=== PATIENT | male | born 1975 | race Hispanic/Latino ===

== ENCOUNTER 2025-05-09 02:15 | Inpatient (IN) | payer SELFPAY ==
[2025-05-09] VITALS (96 sets, daily range): BP systolic 87–139; BP diastolic 58–96; PULSE 76–105; RESP 8–23; TEMP 36.2–37.2; O2SAT 97–100; BMI 29.5
--- NOTE | ~2025-05-09 | XR_ITS ---
Examination: XR chest 1V portable Clinical History: syncope Comparison: None Technique: Portable AP Findings: Heart size enlarged. Lungs clear. No acute bony abnormality. IMPRESSION: 1. No acute cardiopulmonary findings given portable technique. Reviewed, dictated and finalized at location R. ETING AGENT
--- NOTE | ~2025-05-09 | XR_ITS ---
EXAMINATION: XR chest 1V portable COMPARISON: No comparisons available. HISTORY: intubated, mechanically ventilated FINDINGS: Moderate pulmonary venous congestion. No pneumothorax. Mild cardiomegaly. Mediastinal and hilar contours are within normal limits. Bony thorax no acute abnormality. Miscellaneous: ET tube 2 cm above the zaid. Impression: CHF Reviewed, dictated and finalized at location P. DUSTER Impression: CHF
--- NOTE | ~2025-05-09 | XR_ITS ---
EXAM/PROCEDURE: XR chest ET placement HISTORY: ET PLACEMENT COMPARISON: Chest x-ray same date at 0641 hours TECHNIQUE: Portable chest x-ray FINDINGS: Endotracheal tube has been placed with tip about 3.5 cm above the zaid, mid trachea. Right lower lobe atelectasis and/or pneumonia. Heart shadow upper limits normal. No pneumothorax or subphrenic free air seen. IMPRESSION: Endotracheal tube tip about 3.5 cm above the zaid. Right basilar changes as noted above. Note: Preliminary radiology report provided by [facility] radiologist. Reviewed, dictated and finalized at location A. RADIATION THERAPIST IMPRESSION: Endotracheal tube tip about 3.5 cm above the zaid. Right basilar changes as n oted above. Note: Preliminary radiology report provided by [facility] radiologist.
--- NOTE | ~2025-05-09 | US_ITS ---
EXAMINATION: US abdomen limited DATE: 05/09/2025 16:34 INDICATION: Cirrhosis of the liver TECHNIQUE: Multiple grayscale and Doppler ultrasound images of the abdomen were obtained. COMPARISON: CT abdomen and pelvis 05/09/2025 FINDINGS: No evidence of gallstones. No edema gallbladder wall. Irregular, nodular surface of liver with heterogeneous echotexture consistent with cirrhosis of the liver. Moderately dilated portal vein 1.7 cm in diameter at the hilum of the liver is patent. Spleen and left abdomen were not examined. No free fluid. IMPRESSION: 1. No evidence of gallstones. Bile ducts are normal in size. 2. Hepatomegaly with nodular liver and heterogeneous texture with cirrhosis. 3. Mildly dilated portal vein consistent with portal venous hypertension. There is no ascites. Reviewed, dictated and finalized at location T. ILER FURNITURE
--- NOTE | ~2025-05-09 | CT_ITS ---
EXAMINATION: CTA chest abdomen pelvis DATE: 05/09/2025 03:27 INDICATION: Gastrointestinal hemorrhage. TECHNIQUE: Computed tomographic angiography (CTA) of the chest, abdomen, and pelvis was performed without and with 100 mL Omnipaque-350 intravenous contrast. Automated exposure control and iterative reconstruction technique were employed. The dose-length product was 3835.19 mGy-cm. Maximum intensity projection 3D- reconstructions of the aorta and other arteries were constructed by the technologist on a separate workstation. COMPARISON: None. FINDINGS: CHEST CTA: The lungs demonstrate mild atelectasis. A calcified right lung nodule is consistent with old granulomatous disease. No pleural effusion. The heart size is normal. No pericardial effusion. There is wall thickening of the esophagus. The aorta is normal. There is no pulmonary embolus. There are bridging endplate osteophytes at multiple levels in the spine, consistent with diffuse idiopathic skeletal hyperostosis (DISH). ABDOMEN AND PELVIS CTA: The liver demonstrates surface nodularity, consistent with cirrhosis. There is a periumbilical portacaval shunt. The gallbladder, pancreas, spleen, adrenal glands, and kidneys are normal. There are bilateral inguinal hernias containing fat. There are no dilated loops of bowel. The appendix is not visualized. There are no pathologically enlarged lymph nodes. There is no free intraperitoneal fluid. There is an umbilical hernia containing fat. There is no significant stenosis of celiac axis, superior mesenteric artery, the renal arteries, or inferior mesenteric artery. There are bilateral inguinal hernias containing fat. There is mild lumbar spondylosis. IMPRESSION: 1. No active hemorrhage. 2. Cirrhosis of the liver. 3. Wall thickening of the esophagus, consistent with edema versus esophagitis. 4. Umbilical hernia and bilateral inguinal hernias containing fat. Reviewed, dictated and finalized at location E. ER[employer] AND CH[employer] MAKER
--- NOTE | ~2025-05-09 | CT_ITS ---
CT HEAD NON-CONTRAST Clinical History: syncope Comparison: None Technique: Unenhanced axial images skull base to vertex Coronal, sagittal reformats CT images acquired with automatic exposure control for dose reduction DLP: 605 mGy-cm Findings: Sulci, ventricles: Unremarkable. No intracerebral hemorrhage. No evidence acute territorial infarct. No mass effect, midline shift. Empty sella, usually no consequence unless hormonal abnormality. Bony calvarium intact. Visualized paranasal sinuses: Clear. Mastoid air cells: Clear. IMPRESSION: 1. No acute intracranial findings. Reviewed, dictated and finalized at location R. 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
--- NOTE | ~2025-05-09 | XR_ITS ---
EXAMINATION: XR abdomen gastric tube insert DATE: 05/10/2025 12:42 INDICATION: Nasogastric tube placement TECHNIQUE: A supine view of the abdomen and lower chest was obtained for evaluation of feeding tube placement. COMPARISON: None. FINDINGS: Nasogastric tube tip in proximal side port in the body the stomach. There are few scattered tiny metallic densities in the abdomen and pelvis the majority of the epigastric region which based upon prior CT. Represent some ingested material decreased in quantity since the prior CT. No dilated loops of gas- filled bowel to suggest obstruction. Temperature probe likely within a Jose catheter projecting over the central lower pelvis. Opacities at the bilateral lower lung zones which could represent atelectasis or pneumonia. IMPRESSION: 1. Nonobstructive bowel gas pattern with nasogastric tube tip in proximal side port in the body the stomach. 2. Bibasilar lung disease which could represent atelectasis or pneumonia. Reviewed, dictated and finalized at location A. ET PRESS ASSISTANT
--- NOTE | 2025-05-09 02:13 | ECG_ITS ---
Test Date: 2025-05-09 02:35:02 Measurements Intervals [place] Rate: 90 P: 33 [place]: 179 QRS: -32 QRSD: 145 T: 105 QT: 417 QTc: 511 Interpretive Statements SINUS RHYTHM LEFT AXIS DEVIATION LEFT BUNDLE BRANCH BLOCK BASELINE ARTIFACT- AVR ABNORMAL ECG No previous ECG available for comparison Electronically Signed On 05-09-2025 07:51:19 [employer] by Ward Caro D.O.
--- NOTE | 2025-05-09 02:27 | ED.GIBLEED ---
HPI - GI Bleed General Chief complaint: GI Bleed Stated complaint: gi bleed Source: patient and EMS Mode of arrival: EMS Limitations: language barrier (moisture tester used.) History of Present Illness HPI Narrative: Patient is a 50-year-old male presents to the emergency department by EMS for abdominal pain and vomiting up blood. Patient son has a picture of the vomit and there is a large amount of coffee-ground and bright red appearing blood in a pool around the patient on the ground and some clots as well. This started just prior to arrival. Patient had 2 syncopal episodes. Patient was reportedly hypotensive for EMS. Patient admits to drinking 8 beers daily for the past 20 years. Denies being on blood thinners. Denies seeing a retail department reset. Pain is in the upper abdomen, constant. Denies any bloody stools. May have had a similar episode in the past. Related Data Allergies Allergy/AdvReac Type Severity Reaction Status Date / Time No Known Allergies Allergy Verified 05/09/25 02:53 Review of Systems Review of Systems: A 10 system review of systems was completed on the patient and is negative except for what is stated in the HPI. Nursing and ancillary documentation was reviewed. [facility] Past Medical History Medical History (Updated 05/09/25 @ 06:43 by Marcel Miller DO) Acute blood loss anemia Hemorrhagic shock Hematemesis Exam Narrative: CONST: Dried blood on the lips and in the oropharynx. HENMT: Head is normocephalic and atraumatic. Dry mucous membranes. No posterior oropharynx erythema. EYES: Mild scleral icterus. No conjunctival injection. Conjunctival pallor present. PERRL. NECK: No meningeal signs. RESP: Able to speak in full sentences. Normal respiratory effort. CTAB. CARDIO: Regular rate. Regular rhythm. 2+ DP and radial pulses bilaterally. GI: Mildly distended abdomen. Mildly tender to palpation in the epigastrium. No rebound or guarding or rigidity. : No CVA tenderness to palpation. SKIN: No rashes or lesions noted on exposed skin. Jaundiced. NEURO: Oriented x3. Moves all extremities. No focal neurological deficits. EXTREM/MSK/BACK: Trace bilateral lower extremity pitting edema. Course Vital Signs Vital signs: Vital Signs Pulse Rate 92 05/09/25 02:14 Respiratory Rate 16 05/09/25 02:14 Blood Pressure 101/67 05/09/25 02:14 Pulse Oximetry 97 05/09/25 02:14 Oxygen Delivery Room Air 05/09/25 02:14 Temperature 98.8 F 05/09/25 04:20 Pulse Rate 82 05/09/25 06:15 Respiratory Rate 18 05/09/25 06:15 Blood Pressure 102/63 05/09/25 05:50 Pulse Oximetry 99 05/09/25 05:50 Oxygen Delivery Mechanical Ventilation 05/09/25 04:00 Fraction of Inspired Oxygen 60 05/09/25 05:38 Procedures Intubation Intubation #1: Intubation Date: 05/09/25 Time out performed: No sedative: Etomidate paralytic: Rocuronium Laryngoscope: fiber optic video scope Tube Size (cm): 7.5 Method of Intubation: orotracheal Number of Attempts: 1 Tube Secured Depth (cm): 25 Tube Secured Location: lips Tube Placement Confirmation: visualized tube passing through cords, equal breath sounds bilaterally, no breath sounds over epigastrium and confirmation by capnometry Patient Tolerated Procedure: well Intubation Complications: other (noticed a air leak and cuff would not stay inflated so a tube exchange was performed with a bougie and repeat CXR done showing proper positioning. ) MDM MDM Narrative Medical decision making narrative: Patient presents with the above complaint. Initial vitals are remarkable for a blood pressure of 101/67. Physical examination as noted above. Plan discussed: 2 large-bore IVs, continues cardiac monitoring, continuous pulse oximetry, NPO, type and screen, 4 units of packed red blood cells crossmatch, EKG, Gastroenterology consultation, CT head and chest abdomen pelvis, laboratory analysis, 1 L bolus IV fluids, Rocephin, octreotide, Protonix, Zofran. I spoke with Gastroenterology on-call who will see the patient on consultation. Patient returned from CT vomiting up a significant amount of frankly bloody emesis with clots and coffee-ground as well, multiple episodes, appearing more drowsy, spoke with Gastroenterology who is coming, informed of concern for airway protection and agrees with plan for intubation. Patient intubated for airway protection, propofol for post intubation sedation. Unable to place nasogastric or orogastric tube, GI aware. I spoke with Dr. Magana from the ICU who agrees with plan of care. Will need to go to the ICU. Crossmatch blood is still not ready, patient given 1 unit of emergent release blood for the significant amount of blood loss. ICU knows to give another 1-2 units of packed red blood cells. GI notes no need to give FFP or platelets at this time. CT of the chest preliminary findings radiology interpretation is no acute finding seen within the chest, no evidence of aortic dissection or pulmonary artery embolism. CT of the abdomen pelvis preliminary findings radiology impression is isodense material is seen in within the gastric lumen with areas of hyperdensity seen on precontrast imaging which does not increase with sequential phase of imaging. This may represent blood products without definitive active bleeding. Mild distal esophageal wall thickening. Cirrhotic morphology of the liver. Mild nonspecific distal gastric wall thickening. Wall thickening and mild dilatation of loops of small bowel seen within the abdomen and pelvis suggesting underlying infectious or inflammatory enteritis. CT of the head preliminary findings per Radiology impression is no acute intracranial findings. No intracranial hemorrhage. Chest x-ray Radiology impression is endotracheal tube is in place terminating 3.5 cm from the zaid. Right lower lobe atelectasis and/or pneumonia. Differential Diagnosis Differential Diagnosis: Gastrointestinal bleeding, variceal bleeding, peptic ulcer disease, perforated viscus, dysrhythmia, bleeding dyscrasia, gastritis, hepatobiliary pathology, pancreatitis, dehydration, metabolic derangement, electrolyte derangement, ACS, intracranial hemorrhage, other acute surgical abdominal process. Lab Data MDM Lab Attestation statement: I personally reviewed the patient's lab results. Lab results narrative: CBC reveals a hemoglobin of 10.3, platelet count of 96. Coags reveal a PT of 20.5, INR 1.8, APTT of 37.3. Comprehensive metabolic panel reveals a total bilirubin of 2.2, AST is 60, alkaline phosphatase 157. Troponin is 0.077. Lipase is 143. TSH is 1.45. CRP is less than 0.5. Magnesium is 2.2. Ethyl alcohol is 159. 05/09/25 05:35 05/09/25 02:46 Labs: Lab Results 05/09/25 05/09/25 05/09/25 Range/Units 02:46 02:46 03:41 WBC 9.4 (4.5-10.0) K/mm3 RBC 3.54 L (4.6-6.20) M/mm3 Hgb 10.3 L (14.0-18.0) g/dL Hct 31.5 L (42.0-52.0) % MCV 89.0 (80-100) fl MCH 29.1 (26-34) pg MCHC 32.7 (32-36) g/dl RDW 16.8 H (11.5-14.5) % Plt Count 96 L (150-375) k/mm3 MPV 9.6 (7.4-10.4) fl Immature Gran % (Auto) Not Reportable Neut % (Auto) Not Reportable Lymph % (Auto) Not Reportable [place] % (Auto) Not Reportable Eos % (Auto) Not Reportable Baso % (Auto) Not Reportable Lymph # (Auto) Not Reportable [place] # (Auto) Not Reportable Eos # (Auto) Not Reportable Baso # (Auto) Not Reportable Abs Immat Gran (auto) Not Reportable Absolute Neuts (auto) Not Reportable Absolute Nucleated RBC Not Reportable Total Counted 100 Neutrophils % (Manual) 64 (46-73) % Band Neutrophils % 5 (0-6) % Lymphocytes % (Manual) 17.0 L (18-44) % Monocytes % (Manual) 8 (3-9) % Eosinophils % (Manual) 4 (0-4) % Myelocytes % 2 % Nucleated RBC % Not Reportable Abs Neuts (Manual) 6.48 (1.3-6.7) K/mm3 Abs Lymphs (Manual) 1.59 (1.1-4.5) K/mm3 Abs Monocytes (Manual) 0.75 (0.1-0.90) K/mm3 Absolute Eos (Manual) 0.37 (0.02-0.50) K/mm3 Smudge Cells Present Platelet Estimate Decreased (Adequate) % Immature Plt Fraction 2.8 (0.9-11.2) % Anisocytosis 1+ Ovalocytes Occasional Schistocytes None seen PT 20.5 H (11.1-14.7) Seconds INR 1.8 APTT 37.3 H (22.3-36.8) Seconds Sodium 137 (137-145) mmol/L Potassium 4.1 (3.4-5.0) mmol/L Chloride 104 (98-107) mmol/L Carbon Dioxide 28 (22-30) mmol/L Anion Gap 5 (4-12) mmol/L BUN 17 (9-20) mg/dL Creatinine 1.15 (0.7-1.3) mg/dL Estim Creat Clear Calc Not Reportable Estimated GFR > 60 (59 - ) Glucose 107 (65-110) mg/dL Calcium 7.7 L (8.4-10.2) mg/dL Magnesium 2.2 (1.6-2.3) mg/dL Total Bilirubin 2.2 H (0.2-1.3) mg/dL AST 60 H (17-59) U/L ALT 15 (6-50) U/L Alkaline Phosphatase 157 H (38-126) U/L Ammonia 117 H (9-30) umol/L Troponin I 0.077 H* (0.000-0.034) ng/mL C-Reactive Protein < 0.5 (<1.0) mg/dL Total Protein 6.5 (6.3-8.2) g/dL Albumin 2.9 L (3.5-5.1) g/dL Lipase 143 (23-300) U/L TSH (Reflex) 1.450 (0.465-4.68) uIU/mL Ethyl Alcohol 159 (<10) mg/dL Blood Type O Positive Antibody Screen Negative Crossmatch See Detail See Detail ABG Data ABG results: 05/09/25 02:14 VBG pH 7.386 VBG pCO2 46.5 VBG pO2 29.8 L VBG HCO3 27.3 O2 Delivery Device Room air O2 Liters/Min Not Reportable FiO2 21 Imaging Data Radiologist's impression: ITS Impressions Chest X-Ray 05/09/25 06:19 IMPRESSION: 1. No acute cardiopulmonary findings given portable technique. Head CT 05/09/25 06:25 IMPRESSION: 1. No acute intracranial findings. ECG Data EKG #1: Attestation: I personally reviewed and interpreted this ECG as follows: ECG completion date: 05/09/25 ECG completion time: 02:35 Interpretation: Rate of 90, rhythm is sinus rhythm, axis is left axis deviation, left bundle-branch block, no Sgarbossa criteria. Critical Care Time Critical Care Time Critical Care Time: Yes Indication: GI bleed Time Type: Intermittent Initial evaluation, discuss w/ involved parties, attempting to gather old records: 20 minutes Documenting medical record: 15 minutes Review of results (EKG's, labs, imaging): 15 minutes Serial repeat bedside evaluation: 30 minutes Discussing case with multiple memebers of the care team and consultants: 10 minutes Total Critical Care Time: 90 Discharge Plan Discharge Clinical Impression: Anemia, Thrombocytopenia, Non-ST elevation MD (NSTEMI) GI (gastrointestinal bleed) Qualifiers: GI bleed type/associated pathology: unspecified gastrointestinal hemorrhage type Qualified Code(s): K92.2 - Gastrointestinal hemorrhage, unspecified Patient Disposition: Still a Patient Condition: Critical Time of Disposition: 04:54
[2025-05-09] MEDS: SODIUM CHLORIDE 0.9% IV 1,000 ML 999 ML IV CONT (02:55)
[2025-05-09 02:57] LABS: Fractional Inspired Oxygen 21 %; HCO3 VBG 27.3 mEq/l (24.0-30.0); PCO2 VBG 46.5 mmHg (42.0-48.0); PO2 VBG 29.8 mmHg (35.0-45.0); pH VBG 7.386 (7.300-7.400)
[2025-05-09] MEDS: PANTOPRAZOLE SODIUM IV 40 MG VIAL 80 MG IV PUSH (02:57)
[2025-05-09] MEDS: ONDANSETRON INJ 4 MG/2 ML VIAL IV PUSH (02:57)
[2025-05-09] MEDS: METOCLOPRAMIDE HCL INJ 10 MG/2 ML VIAL (03:00)
[2025-05-09 03:05] LABS: Hematocrit 31.5 % (42.0-52.0); Hemoglobin 10.3 g/dL (14.0-18.0); Immature Platelet Fraction Pct 2.8 % (0.9-11.2); Mean Corpuscular HGB Conc 32.7 g/dl (32-36); Mean Corpuscular Hemoglobin 29.1 pg (26-34); Mean Corpuscular Volume 89.0 fl (80-100); Platelet Count Result 96 k/mm3 (150-375); Red Blood Count 3.54 M/mm3 (4.6-6.20); White Blood Count 9.4 K/mm3 (4.5-10.0)
[2025-05-09 03:14] LABS: Alanine Aminotransferase 15 U/L (6-50); Albumin Level 2.9 g/dL (3.5-5.1); Alkaline Phosphatase 157 U/L (38-126); Anion Gap 5 mmol/L (4-12); Aspartate Amino Transferase 60 U/L (17-59); Bilirubin,Total 2.2 mg/dL (0.2-1.3); Blood Urea Nitrogen 17 mg/dL (9-20); Calcium 7.7 mg/dL (8.4-10.2); Carbon Dioxide 28 mmol/L (22-30); Chloride 104 mmol/L (98-107); Estimated Glomerular Filt Rate > 60; Glucose 107 mg/dL (65-110); Lipase 143 U/L (23-300); Magnesium 2.2 mg/dL (1.6-2.3); Potassium 4.1 mmol/L (3.4-5.0); Sodium 137 mmol/L (137-145); Total Protein 6.5 g/dL (6.3-8.2)
[2025-05-09 03:17] LABS: INR 1.8; Prothrombin Time 20.5 Seconds (11.1-14.7)
[2025-05-09 03:18] LABS: Partial Thromboplastin Time 37.3 Seconds (22.3-36.8)
[2025-05-09 03:36] LABS: Band Neutrophils Percent 5 % (0-6); Eosinophils Absolute Manual 0.37 K/mm3 (0.02-0.50); Eosinophils Percent Manual 4 % (0-4); Lymphocytes Absolute Manual 1.59 K/mm3 (1.1-4.5); Lymphocytes Percent Manual 17.0 % (18-44); Monocytes Absolute Manual 0.75 K/mm3 (0.1-0.90); Monocytes Percent Manual 8 % (3-9); Myelocytes Percent 2 %; Neutrophils Absolute Manual 6.48 K/mm3 (1.3-6.7); Neutrophils Percent Manual 64 % (46-73); Total Cells Counted 100
[2025-05-09 03:37] LABS: Anisocytosis 1+; Ovalocytes Occasional; Schistocytes None Seen
[2025-05-09 03:38] LABS: Smudge Cells PRESENT
[2025-05-09 03:44] LABS: Thyroid Stimulating Hormone Reflex 1.450 uIU/mL (0.465-4.68)
[2025-05-09 03:45] LABS: CRP < 0.5 mg/dL (<1.0); Troponin I 0.077 ng/mL (0.000-0.034)
[2025-05-09] MEDS: OCTREOTIDE ACETATE 50 MCG/ML VIAL IV PUSH (03:53)
[2025-05-09 03:59] LABS: Ammonia 117 umol/L (9-30)
[2025-05-09] MEDS: fentaNYL CITRATE INJ (*CRX) 100 MCG/2 ML VIAL IV PUSH ×3 (04:22→06:53)
--- NOTE | 2025-05-09 04:33 | PC.NURSE ---
This RN called to pt bedside by Swetha FARRELL. pt observed having black emesis with clots. EDP called to bedside. EDP stated to get ready for intubation. Respiratory called to bedside. 10 of Reglan given @ 0405 20 of Etomidate given by Swetha RN @ 0410 100 of Rocuromium given by Swetha RN @ 0411 EDP used 7.5 ET tube and is 27@ lip. Color change noted and breath sounds noted per EDP. NG placed and is 68 @ the tip. XR at bedside to confirm placement. NG displaced and removed. EDP had to change out ET tube due to deflation of the balloon. XR at bedside to reconfirm placement. EDP VORB Propofol for sedation
[2025-05-09] MEDS: PROPOFOL IV EMULSION 100 ML 2.65 MG IV CONT (04:41)
--- NOTE | 2025-05-09 04:52 | PC.NURSE ---
VORB to do 1-2 units of blood when crossmatch is complete
[2025-05-09] MEDS: PANTOPRAZOLE SODIUM IV 80 MG in SODIUM CHLORIDE 0.9% IV 500 ML 50 MG IV CONT (05:00)
[2025-05-09] MEDS: PHYTONADIONE ADULT INJ 10 MG in DEXTROSE 5% IN WATER 50 ML 100 MG IVPB (05:02)
[2025-05-09] MEDS: fentaNYL CITRATE INJ (*CRX) 100 MCG/2 ML VIAL (05:38)
[2025-05-09] MEDS: OCTREOTIDE ACETATE 500 MCG in SODIUM CHLORIDE 0.9% IV 99 ML 10 MCG IV CONT (05:41)
[2025-05-09 05:54] LABS: Hematocrit 31.6 % (42.0-52.0); Hemoglobin 10.3 g/dL (14.0-18.0)
--- NOTE | 2025-05-09 06:05 | P.HP_ITS ---
H&P: HPI History of Present Illness Date/Time: 05/09/25 06:05 Chief Complaint: Bloody vomiting Narrative: Patient is intubated, sedated. History is taken via chart review, communication with the ER physician. Patient is a 50-year-old male with heavy alcohol use. 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 Patient's son showed a picture of a large coffee- ground and bright red appearing blood in a pool around the patient on the ground with some clots which happened just prior to arrival. Patient had 2 syncope episodes. The patient was reportedly hypotensive. The patient admitted to drinking 8 beers daily for the past 20 years. Denies being on blood thinners. The pain was in the upper abdomen and constant. He did not have any bloody stools. Patient's initial hemoglobin was 10.3, INR 1.8. Two large-bore IVs placed, patient received 1 L IV fluids. Patient was reportedly stable, saturating well on room air, acceptable blood pressure and heart rate. GI was consulted, patient was started on Rocephin octreotide Protonix and Zofran. Afterwards, the patient had a sudden extremely large episode of hematemesis. He was emergently intubated by the ER physician with succinylcholine. He was then placed on propofol GTT. 1 unit blood emergency release being infused. Another unit of crossmatch to follow. Administer 10 mg vitamin K IV x1. GI reconsulted, advised against platelets and FFP. GI will arrived to perform endoscopy. Phys Therapist notified. ER physician unable to place OG/NG tube on multiple attempts. Other notable labs include total bilirubin 2.2, calcium 7.7, AST 60, ALT 15, alkaline phosphatase 157, ammonia 117, patient was reportedly A&O x3 prior to intubation. Troponin 0.077, albumin 2.9. Lactic acid 2.6. Platelets 96,000. Serum alcohol 159 on admission. No report of chest pain, EKG shows sinus rhythm, no acute ischemia Official radiology interpretations of the following are pending: CT head, no acute intracranial findings. CT chest, no acute findings. CT abdomen pelvis isodense material seen in the gastric lumen with areas of hyperdensity seen on precontrast imaging which does not increase with sequential phase of imaging. Mild distal esophageal wall thickening. Cirrhotic morphology of the liver. Mild nonspecific distal gastric wall thickening. Wall thickening and mild dilatation of loops of small bowel seen within the abdomen pelvis suggesting underlying infectious or inflammatory enteritis. Review of Systems Review of Systems: All systems reviewed & are unremarkable except as noted in HPI and below (Subjective) [facility] Past Medical History Medical History (Updated 05/09/25 @ 06:27 by Binh Franz MD) Acute blood loss anemia Hemorrhagic shock Hematemesis Meds Home Medications and Allergies Allergies Allergy/AdvReac Type Severity Reaction Status Date / Time No Known Allergies Allergy Verified 05/09/25 02:53 Vital Signs Vital Signs - 24 hr 05/09/25 02:14 05/09/25 04:20 05/09/25 04:41 Temperature 98.8 F Pulse Rate 92 98 87 Respiratory Rate 16 20 18 Blood Pressure 101/67 124/85 Pulse Oximetry 97 100 Oxygen Delivery Room Air 05/09/25 05:50 Temperature Pulse Rate 85 Respiratory Rate 20 Blood Pressure 102/63 Pulse Oximetry 99 Oxygen Delivery Exam Const: Other: Intubated Eyes: Pupils: Equal, round and reactive pupils present Resp: Other: Mechanical breath sounds, no adventitious sounds Cardio: Rate: regular rate Rhythm: regular rhythm GI: Inspection: non-distended GI Palp: Yes Soft to palpation Other: Hypoactive bowel sounds : General: Yes bladder normal to palpation Neuro: Other: Sedated Extrem: General: no edema Results Labs Labs: Short CBC 05/09/25 Range/Units 02:46 WBC 9.4 (4.5-10.0) K/mm3 Hgb 10.3 L (14.0-18.0) g/dL Hct 31.5 L (42.0-52.0) % Plt Count 96 L (150-375) k/mm3 BMP 05/09/25 02:46 Sodium 137 Potassium 4.1 Chloride 104 Carbon Dioxide 28 BUN 17 Creatinine 1.15 Glucose 107 Calcium 7.7 L Cardiac Enzymes 05/09/25 Range/Units 02:46 Troponin I 0.077 H* (0.000-0.034) ng/mL Liver Function 05/09/25 Range/Units 02:46 Total Bilirubin 2.2 H (0.2-1.3) mg/dL AST 60 H (17-59) U/L ALT 15 (6-50) U/L Alkaline Phosphatase 157 H (38-126) U/L Albumin 2.9 L (3.5-5.1) g/dL Assessment and Plan Assessment and plan (1) Thrombocytopenia: Code(s): D69.6 - Thrombocytopenia, unspecified Status: Acute (2) GI (gastrointestinal bleed): Qualifiers: GI bleed type/associated pathology: unspecified gastrointestinal hemorrhage type Qualified Code(s): K92.2 - Gastrointestinal hemorrhage, unspecified Code(s): K92.2 - Gastrointestinal hemorrhage, unspecified Status: Acute (3) Anemia: Code(s): D64.9 - Anemia, unspecified Status: Acute (4) Alcohol use disorder: Code(s): F10.90 - Alcohol use, unspecified, uncomplicated Status: Acute (5) Cirrhosis: Code(s): K74.60 - Unspecified cirrhosis of liver Status: Acute Plan Intubated and sedated. Patient will eventually be admitted to ICU. Currently on SCMV rate 18, 450 tidal volume, peep 5, FiO2 100%, wean oxygen as tolerated. At this moment pending emergent endoscopy with Gastroenterology. Continue ceftriaxone, sodium chloride at 125 cc/hour, octreotide GTT, Protonix GTT. Repeat hemoglobin 10.3, monitor serial hemoglobin after endoscopy. Monitor platelet count. Patient given vitamin K, monitor INR. Of course, further workup and management of alcohol use disorder and cirrhosis to follow. Check liver ultrasound. Repeat troponin. Trend lactic acid. Treat hyperammonemia at the discretion of GI and if patient has evidence of hepatic encephalopathy. Monitor for alcohol withdrawal. Multi vitamin PO when extubated. Thiamine and folic acid IV daily. Full code. Bed rest. Admit to ICU. Critical condition. Disposition pending further management. SCDs. Keep MAP > 65-70 Time Spent with Patient Time with patient: 75 minutes or greater Hospitalist MIPS Advance Care Plan I have confirmed that the patient's Advanced Care Plan is present, code status is documented, or surrogate decision maker is listed in patient medical record.: Yes Medication Reconciliation I have utilized all available resources to obtain, update and review the patients current medications (includes all prescriptions, OTC, herbals, canna bis, and nutritional supplements).: No The patient is not eligible for med reconciliation; the patient is in a emergent medical situation where delaying treatment would jeopardize the patients health.: Yes
--- NOTE | 2025-05-09 06:23 | PC.NURSE ---
gave 100 genna and 20mg of etomadate during intubtion
--- NOTE | 2025-05-09 06:23 | WPDGICN ---
Assessment and Plan Assessment and plan (1) GI (gastrointestinal bleed): Qualifiers: GI bleed type/associated pathology: unspecified gastrointestinal hemorrhage type Qualified Code(s): K92.2 - Gastrointestinal hemorrhage, unspecified Code(s): K92.2 - Gastrointestinal hemorrhage, unspecified Status: Acute Assessment and Plan: probably he has cirrhosis will proceed with urgent EGD at bedside, he is still in ER waiting for ICU bed continue with medical support, iv octreotide, ppi, abx transfuse if hgb<7 he is critically ill ? varices, ulcer, jose roberto-wilson (2) Hematemesis: Code(s): K92.0 - Hematemesis Status: Acute Assessment and Plan: urgent EGD (3) Hemorrhagic shock: Code(s): R57.8 - Other shock Status: Acute Assessment and Plan: s/p fluids (4) Acute blood loss anemia: Code(s): D62 - Acute posthemorrhagic anemia Status: Acute (5) Thrombocytopenia: Code(s): D69.6 - Thrombocytopenia, unspecified Status: Acute Assessment and Plan: probably from cirrhosis will monitor (6) Cirrhosis: Code(s): K74.60 - Unspecified cirrhosis of liver Status: Acute Assessment and Plan: will get liver ultrasound probably from alcohol abuse meld 3.0 score17 (7) Alcohol use disorder: Code(s): F10.90 - Alcohol use, unspecified, uncomplicated Status: Acute GI Consult Note Consult date/time: 05/09/25 06:23 Reason for consult: hematemesis, alcohol abuse HPI: Nestor Vieira is a 50 year old male who came early this morning to the emergency department by EMS for abdominal pain and vomiting up blood. He is currently intubated for airway protection and history is obtained from record. His son has a picture of the vomit that showed to ER with large amount of coffee-ground and bright red appearing blood. Patient had 2 syncopal episodes and he had more hematemesis in the ER. Given active bleeding then decision was to intubate him. Started on iv protonix, octreotide. Noted elevated liver enzymes (he is an alcoholic), hgb 10, also reportedly hypotensive for EMS. Patient admits to drinking 8 beers daily for the past 20 years. Denies being on blood thinners. Review of Systems Review of Systems: ROS unobtainable: Yes unobtainable due to endotracheal tube [facility] Past Medical History Medical History (Updated 05/09/25 @ 06:43 by Marcel Miller DO) Acute blood loss anemia Hemorrhagic shock Hematemesis Meds Home Medications and Allergies Allergies Allergy/AdvReac Type Severity Reaction Status Date / Time No Known Allergies Allergy Verified 05/09/25 02:53 Vital Signs Vital Signs - 24 hr 05/09/25 02:14 05/09/25 04:00 05/09/25 04:00 Temperature Pulse Rate 92 Respiratory Rate 16 Blood Pressure 101/67 Pulse Oximetry 97 100 100 Oxygen Delivery Room Air Mechanical Ventilation Mechanical Ventilation Fraction of Inspired Oxygen 50 50 05/09/25 04:20 05/09/25 04:41 05/09/25 05:38 Temperature 98.8 F Pulse Rate 98 87 Respiratory Rate 20 18 Blood Pressure 124/85 Pulse Oximetry 100 Oxygen Delivery Fraction of Inspired Oxygen 60 05/09/25 05:50 05/09/25 06:15 Temperature Pulse Rate 85 82 Respiratory Rate 20 18 Blood Pressure 102/63 Pulse Oximetry 99 Oxygen Delivery Fraction of Inspired Oxygen Exam Const: Other: critically ill HENMT: Other: intubated Eyes: General: appearance normal, both eyes and all related structures Neck: Neck: supple Resp: Effort & Inspection: normal respiratory effort Other: ETT in place Cardio: Rate: regular rate GI: GI Palp: Yes Soft to palpation Auscultation: normal bowel sounds Skin: Wounds: no wounds Neuro: Other: intubated and sedated Extrem: General: normal to inspection Psych: Other: unable to assess Results Labs 05/09/25 05:35 05/09/25 02:46 Labs: Short CBC 05/09/25 05/09/25 Range/Units 02:46 05:35 WBC 9.4 (4.5-10.0) K/mm3 Hgb 10.3 L 10.3 L (14.0-18.0) g/dL Hct 31.5 L 31.6 L (42.0-52.0) % Plt Count 96 L (150-375) k/mm3 BMP 05/09/25 02:46 Sodium 137 Potassium 4.1 Chloride 104 Carbon Dioxide 28 BUN 17 Creatinine 1.15 Glucose 107 Calcium 7.7 L Cardiac Enzymes 05/09/25 Range/Units 02:46 Troponin I 0.077 H* (0.000-0.034) ng/mL Liver Function 05/09/25 Range/Units 02:46 Total Bilirubin 2.2 H (0.2-1.3) mg/dL AST 60 H (17-59) U/L ALT 15 (6-50) U/L Alkaline Phosphatase 157 H (38-126) U/L Albumin 2.9 L (3.5-5.1) g/dL
[2025-05-09] MEDS: MIDAZOLAM HCL (*CRX) 2 MG/2 ML VIAL IV PUSH (06:46)
[2025-05-09 07:25] LABS: MRSA (PCR) NOT DETECTED (NOT DETECTE)
[2025-05-09] MEDS: MIDAZOLAM 100MG/NS 100ML(*CRX) 100 MG/100 ML BAG IV CONT (07:48)
[2025-05-09 07:59] LABS: Troponin I 0.155 ng/mL (0.000-0.034)
[2025-05-09 08:07] LABS: Add Urine Microscopic? NO; Appearance Urine Clear (Clear); Glucose Urine UA Negative (Negative); Leukocyte Esterase Ur Negative LEU/UL (Negative); Nitrate Urine Negative (Negative); Specific Grav Ur > 1.045 (1.001-1.035)
--- NOTE | 2025-05-09 08:17 | PC.NURSE ---
This RN assumed care from JAMI Posada at 0700. Once in my care, pt was cleaned up, placed on clean sheets, placed in a clean gown, placed in a clean depend and temperature rubio catheter inserted and UA/UDS collected. JAMI Posada states EDP Dr. Miller gave her verbal order to not place NG tube at this time due to varices being banded during EGD.
[2025-05-09] MEDS: cefTRIAXone 1 GM in SODIUM CHLORIDE 0.9% IV 50 ML 100 ML IVPB (08:25)
--- NOTE | 2025-05-09 08:30 | WPCEDHO ---
ED Hand Off Checklist All vitals saved:y IV Site documented:y All med administrations documented:y Triage Note Triage Note brought in by ems vomiting blood 05/09/25 02:14 through my nose. Allergies No Known Allergies Allergy (Verified 05/09/25 02:53) Current Diagnoses Acute posthemorrhagic anemia (05/09/25) Anemia, unspecified (05/09/25) Thrombocytopenia, unspecified (05/09/25) Alcohol use, unspecified, uncomplicated (05/09/25) Unspecified cirrhosis of liver (05/09/25) Hematemesis (05/09/25) Gastrointestinal hemorrhage, unspecified (05/09/25) Other shock (05/09/25) Active Medications including assessments/comments Octreotide Acetate 500 mcg/ (Sodium Chloride) 100 mls @ 10 mls/hr IV CONT .Q10H PENDING SALE TO [facility] Last Admin: 05/09/25 05:41 Dose: 50 mcg/hr, 10 mls/hr Documented By: KEE Infusion/Titration Document 05/09/25 05:41 SRW (Rec: 05/09/25 05:41 SRW [id number]) Intake IV Site Peripheral Access Left Hand Container Volume 100 Waste Amount 0 Dosing Dose Rate 50 Infusion Rate 10 Increase/Decrease Started Elapsed Time Elapsed Time ( 0m minutes) Midazolam HCl (Versed 100 Mg/Ns 100 Ml) 100 mg in 100 mls @ 7 mls/hr IV CONT .[id number] PENDING SALE TO [facility]; Protocol Last Titration: 05/09/25 08:11 Dose: 7 mg/hr, 7 mls/hr Documented By: DICK Infusion/Titration Document 05/09/25 08:11 DICK (Rec: 05/09/25 08:12 ELB [id number]) Intake Intake 0.3 Cumulative Intake ( 1 bag) Cumulative Intake ( 1 Rx) Container Volume 99 Waste Amount 0 Dosing Dose Rate 7 Infusion Rate 7 Cumulative Dose 1 Increase/Decrease Increased Elapsed Time Elapsed Time ( 23m minutes) Versed Infusion Assessment Document 05/09/25 08:11 DICK (Rec: 05/09/25 08:12 BENJAB [id number]) Infusion Action Versed Infusion Titrated/Rate Changed Action Pulse Pulse Rate (60-100) 83 Respirations Respiratory Rate (12 17 -20) [place]ia Agitation/Sedation Scale (RASS) [place]ia Agitation/ Very Agitated/ +3 Sedation Scale (RASS ) Titration: 05/09/25 08:08 Dose: 5 mg/hr, 5 mls/hr Documented By: DICK Infusion/Titration Document 05/09/25 08:08 DICK (Rec: 05/09/25 08:10 BENJAB [id number]) Intake Intake 0.5 Cumulative Intake ( 0.7 bag) Cumulative Intake ( 0.7 Rx) Container Volume 99.3 Waste Amount 0 Dosing Dose Rate 5 Infusion Rate 5 Cumulative Dose 0.7 Increase/Decrease Increased Elapsed Time Elapsed Time ( 20m minutes) Versed Infusion Assessment Document 05/09/25 08:08 DICK (Rec: 05/09/25 08:10 DICK [id number]) Infusion Action Versed Infusion Titrated/Rate Changed Action Pulse Pulse Rate (60-100) 83 Respirations Respiratory Rate (12 17 -20) [place]ia Agitation/Sedation Scale (RASS) [place]ia Agitation/ Very Agitated/ +3 Sedation Scale (RASS ) Titration: 05/09/25 07:58 Dose: 3 mg/hr, 3 mls/hr Documented By: DICK Infusion/Titration Document 05/09/25 07:58 DICK (Rec: 05/09/25 08:07 DICK [id number]) Intake IV Site Peripheral Access Left Hand Intake 0.2 Cumulative Intake ( 0.2 bag) Cumulative Intake ( 0.2 Rx) Container Volume 99.8 Waste Amount 0 Dosing Dose Rate 3 Infusion Rate 3 Cumulative Dose 0.2 Increase/Decrease Increased Elapsed Time Elapsed Time ( 10m minutes) Versed Infusion Assessment Document 05/09/25 07:58 DICK (Rec: 05/09/25 08:07 DICK [id number]) Infusion Action Versed Infusion Titrated/Rate Changed Action Pulse Pulse Rate (60-100) 82 Respirations Respiratory Rate (12 19 -20) [place]ia Agitation/Sedation Scale (RASS) [place]ia Agitation/ Agitated/ +2 Sedation Scale (RASS ) Admin: 05/09/25 07:48 Dose: 1 mg/hr, 1 mls/hr Documented By: DICK Co-signed By: KAITLYNN Infusion/Titration Document 05/09/25 07:48 DICK (Rec: 05/09/25 07:49 DICK [id number]) Co-signed By Daniella Coppola RN Intake IV Site Peripheral Access Left Hand Container Volume 100 Waste Amount 0 Dosing Dose Rate 1 Infusion Rate 1 Increase/Decrease Started Elapsed Time Elapsed Time ( 0m minutes) Versed Infusion Assessment Document 05/09/25 07:48 DICK (Rec: 05/09/25 07:49 DICK [id number]) Co-signed By Daniella Coppola RN Infusion Action Versed Infusion Initiated Action Pulse Pulse Rate (60-100) 82 Respirations Respiratory Rate (12 18 -20) [place]ia Agitation/Sedation Scale (RASS) [place]ia Agitation/ Restless/ +1 Sedation Scale (RASS ) Administered/Completed Medications Discontinued Medications Fentanyl Citrate (Fentanyl Citrate Inj (*Crx) 100 Mcg/2 Ml Vial) 100 mcg IV PUSH ONCE STA Stop: 05/09/25 04:21 Last Admin: 05/09/25 04:22 Dose: 100 mcg Documented By: KEE Fentanyl Citrate (Fentanyl Citrate Inj (*Crx) 100 Mcg/2 Ml Vial) Confirm Administered Dose 100 mcg .ROUTE .STK-MED ONE Stop: 05/09/25 04:22 Last Admin: 05/09/25 05:38 Dose: 100 mcg Documented By: KEE Fentanyl Citrate (Fentanyl Citrate Inj (*Crx) 100 Mcg/2 Ml Vial) 100 mcg IV PUSH ONCE STA Stop: 05/09/25 05:28 Last Admin: 05/09/25 06:12 Dose: 100 mcg Documented By: KEE Fentanyl Citrate (Fentanyl Citrate Inj (*Crx) 100 Mcg/2 Ml Vial) 100 mcg IV PUSH ONCE ONE Stop: 05/09/25 06:51 Last Admin: 05/09/25 06:53 Dose: 100 mcg Documented By: KEE Sodium Chloride (Normal Saline Iv) 1,000 mls @ 999 mls/hr IV CONT .Q1H1M STA Stop: 05/09/25 03:12 Last Infusion: 05/09/25 07:00 Dose: Infused Documented By: Admin: 05/09/25 02:55 Dose: 999 mls/hr Documented By: KEE Pantoprazole Sodium 80 mg/ (Sodium Chloride) 500 mls @ 50 mls/hr IV CONT .Q10H STA Stop: 05/09/25 12:11 Last Infusion: 05/09/25 08:21 Dose: Infused Documented By: Admin: 05/09/25 05:00 Dose: 50 mls/hr Documented By: KEE Ceftriaxone Sodium 1 gm/ (Sodium Chloride) 50 mls @ 100 mls/hr IVPB ONCE STA Stop: 05/09/25 02:41 Last Admin: 05/09/25 08:25 Dose: 100 mls/hr Documented By: DICK Propofol (Diprivan) 100 mls @ 2.652 mls/hr IV CONT .[id number] STA; Protocol Stop: 05/09/25 04:26 Last Titration: 05/09/25 06:15 Dose: 10 mcg/kg/min, 5.3 mls/hr Documented By: Admin: 05/09/25 04:41 Dose: 5 mcg/kg/min, 2.65 mls/hr Documented By: KEE Co-signed By: ACS Comments: 2.6 Phytonadione 10 mg/ Dextrose 51 mls @ 100 mls/hr IVPB ONCE STA Stop: 05/09/25 04:57 Last Infusion: 05/09/25 07:00 Dose: Infused Documented By: Admin: 05/09/25 05:02 Dose: 100 mls/hr Documented By: KEE IV Miscellaneous Supplies (Tubing, Blood Set) Confirm Administered Dose 1 each XX .STK-MED ONE Stop: 05/09/25 04:03 Last Admin: 05/09/25 07:50 Dose: Not Given Documented By: DICK Non-Admin Reason: Charge Only Metoclopramide HCl (Metoclopramide Hcl Inj 10 Mg/2 Ml Vial) Confirm Administered Dose 10 mg .ROUTE .STK-MED ONE Stop: 05/09/25 04:03 Last Admin: 05/09/25 03:00 Dose: 10 mg Documented By: KEE Midazolam HCl (Midazolam Hcl (*Crx) 2 Mg/2 Ml Vial) 2 mg IV PUSH ONCE ONE Stop: 05/09/25 06:42 Last Admin: 05/09/25 06:46 Dose: 2 mg Documented By: KEE Miscellaneous Information (Please Add Drug Allergy Info To Patient Profile.) 1 each XX CLARIFY RUBY Stop: 06/08/25 00:00 Last Admin: 05/09/25 07:26 Dose: Not Given Documented By: ELChristal Non-Admin Reason: Allergy Octreotide Acetate (Octreotide Acetate 50 Mcg/Ml Vial) 50 mcg IV PUSH ONCE STA Stop: 05/09/25 02:13 Last Admin: 05/09/25 03:53 Dose: 50 mcg Documented By: KEE Ondansetron HCl (Ondansetron Inj 4 Mg/2 Ml Vial) 4 mg IV PUSH ONCE STA Stop: 05/09/25 02:13 Last Admin: 05/09/25 02:57 Dose: 4 mg Documented By: KEE Pantoprazole Sodium (Pantoprazole Sodium Iv 40 Mg Vial) 80 mg IV PUSH ONCE STA Stop: 05/09/25 02:13 Last Admin: 05/09/25 02:57 Dose: 80 mg Documented By: KEE Succinylcholine Chloride (Rapid Sequence Intubation Kit) Confirm Administered Dose 1 each .ROUTE .STK-MED ONE Stop: 05/09/25 03:58 Last Admin: 05/09/25 05:49 Dose: Not Given Documented By: KEE Non-Admin Reason: No Dose Required Notes 05/09/25 08:17 Nurse Note by Sandy Valdes This RN assumed care from JAMI Posada at 0700. Once in my care, pt was cleaned up, placed on clean sheets, placed in a clean gown, placed in a clean depend and temperature rubio catheter inserted and UA/UDS collected. JAMI Posada states EDP Dr. Miller gave her verbal order to not place NG tube at this time due to varices being banded during EGD. Initialized on 05/09/25 08:17 - END OF NOTE 05/09/25 06:23 Nurse Note by Swetha Lopez gave 100 genna and 20mg of etomadate during intubtion Initialized on 05/09/25 06:23 - END OF NOTE 05/09/25 04:52 Nurse Note by Ying Rueda VORB to do 1-2 units of blood when crossmatch is complete Initialized on 05/09/25 04:52 - END OF NOTE 05/09/25 04:33 Nurse Note by Ying Rueda This RN called to pt bedside by Swetha FARRELL. pt observed having black emesis with clots. EDP called to bedside. EDP stated to get ready for intubation. Respiratory called to bedside. 10 of Reglan given @ 0405 20 of Etomidate given by Swetha RN @ 0410 100 of Rocuromium given by Swetha RN @ 0411 EDP used 7.5 ET tube and is 27@ lip. Color change noted and breath sounds noted per EDP. NG placed and is 68 @ the tip. XR at bedside to confirm placement. NG displaced and removed. EDP had to change out ET tube due to deflation of the balloon. XR at bedside to reconfirm placement. EDP VORB Propofol for sedation Initialized on 05/09/25 04:33 - END OF NOTE Interventions/Assessments IV / Saline Lock, Insert Start: 05/09/25 02:04 Freq: Status: Active Protocol: Document 05/09/25 07:55 ELB (Rec: 05/09/25 07:56 ELB [id number]) IV Assessment Peripheral Access Left Wrist IV Catheter Access Discontinued Access Additional IV IV not present when this RN assumed care of pt at 0700 Comments Last Vital Signs Temperature 97.2 F L 05/09/25 08:00 Pulse Rate 83 05/09/25 08:11 Respiratory Rate 17 05/09/25 08:11 Pulse Oximetry 100 05/09/25 08:00 Blood Pressure 122/96 H 05/09/25 08:00 Blood Pressure Mean 104 05/09/25 08:00 Oxygen Delivery Mechanical Ventilation 05/09/25 04:00 Fraction of Inspired Oxygen 60 05/09/25 05:38 Weight 88.4 kg 05/09/25 04:31 Last Result - Abnormals Only RBC 3.54 M/mm3 (4.6-6.20) L 05/09/25 02:46 Hgb 10.3 g/dL (14.0-18.0) L 05/09/25 05:35 Hct 31.6 % (42.0-52.0) L 05/09/25 05:35 RDW 16.8 % (11.5-14.5) H 05/09/25 02:46 Plt Count 96 k/mm3 (150-375) L 05/09/25 02:46 Lymphocytes % (Manual) 17.0 % (18-44) L 05/09/25 02:46 PT 20.5 Seconds (11.1-14.7) H 05/09/25 02:46 APTT 37.3 Seconds (22.3-36.8) H 05/09/25 02:46 VBG pO2 29.8 mmHg (35.0-45.0) L 05/09/25 02:14 Lactic Acid 2.6 mmol/L (0.7-2.0) H 05/09/25 05:37 Calcium 7.7 mg/dL (8.4-10.2) L 05/09/25 02:46 Total Bilirubin 2.2 mg/dL (0.2-1.3) H 05/09/25 02:46 AST 60 U/L (17-59) H 05/09/25 02:46 Alkaline Phosphatase 157 U/L (38-126) H 05/09/25 02:46 Ammonia 117 umol/L (9-30) H 05/09/25 03:41 Troponin I 0.155 ng/mL (0.000-0.034) H* D 05/09/25 07:11 Albumin 2.9 g/dL (3.5-5.1) L 05/09/25 02:46 Ur Specific [place] > 1.045 (1.001-1.035) H 05/09/25 08:00 Crossmatch See Detail 05/09/25 02:46 Crossmatch See Detail 05/09/25 02:46 Most Recent Suicide Severity Rating Suicide Severity Rating NO RISK INDICATED 05/09/25 02:14
[2025-05-09 08:55] LABS: HIV 1/2 Ab P24 Ag Result Negative (Negative)
[2025-05-09 08:58] LABS: Cannabinoid Screen Urine Negative (Negative)
[2025-05-09 10:02] LABS: Hepatitis B Surface Antigen Negative (Negative)
[2025-05-09 10:07] LABS: HAV RESULT Negative (Negative); Hepatitis B Core IgM Result Negative (Negative)
[2025-05-09 10:39] LABS: Troponin I 0.121 ng/mL (0.000-0.034)
--- NOTE | 2025-05-09 10:40 | ADMGEN ---
This patient, Nestor Vieira, was admitted to Intensive Care Unit-10. Patient/family oriented to hospital policies and general routines including ID bracelet, bed and alarms, visiting hours, pain management, procedures, bathroom and other care routines, personal items, smoking policy, room service/diet, and visiting hours. Information on how to activate the Rapid Response Team has been discussed. Patient/Family are encouraged to report perceived risks to care and to ask questions if they do not understand what they are told or what they should do.
[2025-05-09 11:35] LABS: Hematocrit 30.5 % (42.0-52.0); Hemoglobin 10.0 g/dL (14.0-18.0); Immature Platelet Fraction Pct 2.1 % (0.9-11.2); Mean Corpuscular HGB Conc 32.8 g/dl (32-36); Mean Corpuscular Hemoglobin 29.0 pg (26-34); Mean Corpuscular Volume 88.4 fl (80-100); Platelet Count Result 59 k/mm3 (150-375); Red Blood Count 3.45 M/mm3 (4.6-6.20); White Blood Count 6.4 K/mm3 (4.5-10.0)
[2025-05-09 11:45] LABS: INR 1.9; Prothrombin Time 21.1 Seconds (11.1-14.7)
[2025-05-09 11:46] LABS: Partial Thromboplastin Time 38.0 Seconds (22.3-36.8)
[2025-05-09 11:56] LABS: Alanine Aminotransferase 17 U/L (6-50); Albumin Level 2.5 g/dL (3.5-5.1); Alkaline Phosphatase 142 U/L (38-126); Anion Gap 3 mmol/L (4-12); Aspartate Amino Transferase 74 U/L (17-59); Bilirubin,Total 1.7 mg/dL (0.2-1.3); Blood Urea Nitrogen 18 mg/dL (9-20); Calcium 7.0 mg/dL (8.4-10.2); Carbon Dioxide 22 mmol/L (22-30); Chloride 112 mmol/L (98-107); Estimated CRCL calculation 108 ml/min; Estimated Glomerular Filt Rate > 60; Glucose 95 mg/dL (65-110); Magnesium 1.8 mg/dL (1.6-2.3); Potassium 4.3 mmol/L (3.4-5.0); Sodium 137 mmol/L (137-145); Total Protein 6.0 g/dL (6.3-8.2)
[2025-05-09 12:02] LABS: Anisocytosis 1+; Band Neutrophils Percent 2 % (0-6); Eosinophils Absolute Manual 0.06 K/mm3 (0.02-0.50); Eosinophils Percent Manual 1 % (0-4); Hypochromasia 1+; Lymphocytes Absolute Manual 0.76 K/mm3 (1.1-4.5); Lymphocytes Percent Manual 12.0 % (18-44); Monocytes Absolute Manual 0.12 K/mm3 (0.1-0.90); Monocytes Percent Manual 2 % (3-9); Neutrophils Absolute Manual 5.44 K/mm3 (1.3-6.7); Neutrophils Percent Manual 83 % (46-73); Schistocytes None Seen; Total Cells Counted 100
[2025-05-09 12:03] LABS: Smudge Cells PRESENT
[2025-05-09] MEDS: THIAMINE HCL 200 MG/2 ML VIAL 100 MG IV PUSH (12:14)
[2025-05-09] MEDS: FOLIC ACID 1 MG/0.2 ML INJ IV PUSH (12:15)
--- NOTE | 2025-05-09 12:38 | WPDCNINT2 ---
Assessment and Plan Assessment and plan (1) Hematemesis: Code(s): K92.0 - Hematemesis Status: Acute Assessment and Plan: 05/09: patient presented with hematemesis at home and multiple episodes in the ER - GI was called into the ER early this morning to scope the patient -05/09/2025: EGD done in the ER: Grade 3 varices, 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 status post 3 bands. Moderate gastritis in the stomach, portal hypertensive changes, no mucosal bleeding. Old blood noted in the fundus of the stomach. The bulb and the 2nd portion of duodenum was normal with no ulcers or masses. - continue octreotide infusion per GI - continue IV PPI per GI (2) GI (gastrointestinal bleed): Qualifiers: GI bleed type/associated pathology: unspecified gastrointestinal hemorrhage type Qualified Code(s): K92.2 - Gastrointestinal hemorrhage, unspecified Code(s): K92.2 - Gastrointestinal hemorrhage, unspecified Status: Acute Assessment and Plan: as above (3) Acute blood loss anemia: Code(s): D62 - Acute posthemorrhagic anemia Status: Acute Assessment and Plan: patient received 1 unit of packed RBCs - repeat hemoglobin has been stable - will CBCrecheck later this evening (4) Thrombocytopenia: Code(s): D69.6 - Thrombocytopenia, unspecified Status: Acute Assessment and Plan: Thrombocytopenia likely related to cirrhosis and now consumptive - normal bleeding noted, patient is hemodynamically stable - continue to monitor (5) Cirrhosis: Code(s): K74.60 - Unspecified cirrhosis of liver Status: Acute Assessment and Plan: cirrhosis likely related to alcohol use disorder -MELD score is 17 - GI following, and recommended right upper quadrant ultrasound (6) Alcohol use disorder: Code(s): F10.90 - Alcohol use, unspecified, uncomplicated Status: Acute Assessment and Plan: alcohol use disorder: Patient drinks 8 beers a day for 20 years according to records - will monitor for alcohol withdrawal/DTs - once he is awake will have care coordination evaluate the patient and provide alcohol rehab information (7) Elevated troponin: Code(s): R79.89 - Other specified abnormal findings of blood chemistry Status: Acute Assessment and Plan: troponin elevated likely related to GI bleed - repeat troponins have been trending down - unknown if patient complained of any chest pain Plan DVT prophylaxis: SCDs Stress ulcer prophylaxis: Protonix Nutrition: NPO Code Status: full code Critical Care Time Spent: 51 minutes Due to a high probability of clinically significant, life threatening deterioration, the patient required my highest level of preparedness to intervene emergently and I personally spent this critical care time directly and personally managing the patient. This critical care time included obtaining a history; examining the patient; pulse oximetry; ordering and review of studies; arranging urgent treatment with development of a management plan; evaluation of patient's response to treatment; frequent reassessment; and discussions with other providers. It was exclusive of separately billable procedures and treating other patients and teaching time. Please see Assessment and Plan section and the rest of the note for further information on patient assessment and treatment This dictation may have been done utilizing a voice recognition system. Attempts have been made to correct errors. However, there may be uncorrected grammatical, spelling, and recognitions errors present. Manufacturing Accountant Consult Note Consult date: 05/09/25 Reason for consult: hematemesis, GI bleed/ variceal bleed, acute respiratory failure, HPI: Nestor Vieira is a 50 year old male past medical history of alcohol abuse disorder, presented the ED on 05/09/2025 in the eye early hours via EMS for abdominal pain and hematemesis. According the records patient showed a picture of a large coffee-ground and bright red appearing blood in a pool around the patient on the ground with some clots. Patient had 2 more episodes in the ER, was intubated. GI was called and had to come in and perform an EGD in the ER, variceal bleed was noted, varices were banded. Also noted to have gastritis. According the records patient admitted to drinking 8 beers a day the past 20 years. Denies being on any blood thinners. INR was slightly elevated, received vitamin K in the ER 05/09/2025: EGD done in the ER: Grade 3 varices, 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 status post 3 bands. Moderate gastritis in the stomach, portal hypertensive changes, no mucosal bleeding. Old blood noted in the fundus of the stomach. The bulb and the 2nd portion of duodenum was normal with no ulcers or masses. Patient a received 1 unit of packed RBCs in the ER. Transfer the ICU intubated, on propofol and Versed Infusions 05/09/2025: Patient seen and examined upon arrival to the ICU, remains intubated on CMV mode of ventilation, peep of 5, 45% FiO2, sedated with Versed and propofol infusion. Patient does not open his eyes or follows simple command. Hemodynamically stable, repeat hemoglobin was 10.0. Platelets 59, WBC 6.4. INR was 1.9, PTT 38. Creatinine 0.68, lactic of 2.8. Bilirubin 1.7, AST 74, ALT 17. troponin 0.077, 0.155, 0.121. CT chest abdomen pelvis did not show any active hemorrhage, cirrhosis of liver, wall thickening of the esophagus consistent with edema versus esophagitis, umbilical hernia and bilateral inguinal hernia containing far CT brain with no acute intracranial findings CXR endotracheal tube in right position, right basal atelectasis Review of Systems Review of Systems: ROS unobtainable: Yes unobtainable due to endotracheal tube, unobtainable due to medical condition and unobtainable due to mental status [facility] Past Medical History Medical History (Updated 05/09/25 @ 13:55 by Sandi Magana MD) Acute blood loss anemia Hemorrhagic shock Hematemesis Social History Social History Smoking status: Unknown if ever smoked Alcohol intake: current Drinks per week: 84 Substance use: unknown Substance use type: does not use Spiritual care concerns: No Meds Home Medications and Allergies Allergies Allergy/AdvReac Type Severity Reaction Status Date / Time No Known Allergies Allergy Verified 05/09/25 10:42 Vital Signs Vital Signs - 24 hr 05/09/25 02:14 05/09/25 04:00 05/09/25 04:00 Temperature Pulse Rate 92 Respiratory Rate 16 Blood Pressure 101/67 Pulse Oximetry 97 100 100 Oxygen Delivery Room Air Mechanical Ventilation Mechanical Ventilation Fraction of Inspired Oxygen 50 50 05/09/25 04:20 05/09/25 04:41 05/09/25 05:20 Temperature 98.8 F 97.4 F L Pulse Rate 98 87 85 Respiratory Rate 20 18 18 Blood Pressure 124/85 92/66 L Pulse Oximetry 100 99 Oxygen Delivery Fraction of Inspired Oxygen 05/09/25 05:38 05/09/25 05:50 05/09/25 06:15 Temperature Pulse Rate 85 82 Respiratory Rate 20 18 Blood Pressure 102/63 Pulse Oximetry 99 Oxygen Delivery Fraction of Inspired Oxygen 60 05/09/25 06:49 05/09/25 07:00 05/09/25 07:15 Temperature Pulse Rate 77 86 84 Respiratory Rate 16 18 18 Blood Pressure 119/79 102/69 101/69 Pulse Oximetry 98 100 100 Oxygen Delivery Fraction of Inspired Oxygen 05/09/25 07:30 05/09/25 07:45 05/09/25 07:48 Temperature Pulse Rate 81 82 82 Respiratory Rate 18 18 18 Blood Pressure 98/69 L 112/84 Pulse Oximetry 100 100 Oxygen Delivery Fraction of Inspired Oxygen 05/09/25 07:58 05/09/25 08:00 05/09/25 08:08 Temperature 97.2 F L Pulse Rate 82 83 83 Respiratory Rate 19 18 17 Blood Pressure 122/96 H Pulse Oximetry 100 Oxygen Delivery Fraction of Inspired Oxygen 05/09/25 08:18 05/09/25 08:40 05/09/25 09:43 Temperature Pulse Rate 83 85 89 Respiratory Rate 17 Blood Pressure Pulse Oximetry 100 100 Oxygen Delivery Mechanical Ventilation Mechanical Ventilation Fraction of Inspired Oxygen 50 40 05/09/25 11:00 05/09/25 12:00 05/09/25 12:01 Temperature 97.2 F L 97.2 F L Pulse Rate 85 88 90 Respiratory Rate 18 18 Blood Pressure 94/64 L 123/76 Pulse Oximetry 100 100 100 Oxygen Delivery Mechanical Ventilation Fraction of Inspired Oxygen 40 Exam Narrative: General: intubated, sedated in no acute distress HEENT:? pupils equal and reactive, sclera is clear, ETT in place Neck:? some Respiratory:? clear to auscultation bilaterally, adequate air entry, no wheezing Cardiac:? S1-S2 normal, regular rate and rhythm Abdomen:? soft, nontender, nondistended, hypoactive bowel sounds Extremities:? no edema, palpable pedal pulses Neuro:? intubated, sedated, does not open his eyes or follow simple commands Skin:? no skin lesions noted Psych:? unable to assess at this time Results Labs 05/09/25 11:27 05/09/25 11:27 Labs: Short CBC 05/09/25 05/09/25 05/09/25 Range/Units 02:46 05:35 11:27 WBC 9.4 6.4 (4.5-10.0) K/mm3 Hgb 10.3 L 10.3 L 10.0 L (14.0-18.0) g/dL Hct 31.5 L 31.6 L 30.5 L (42.0-52.0) % Plt Count 96 L 59 L (150-375) k/mm3 BMP 05/09/25 05/09/25 02:46 11:27 Sodium 137 137 Potassium 4.1 4.3 Chloride 104 112 H Carbon Dioxide 28 22 BUN 17 18 Creatinine 1.15 0.68 L Glucose 107 95 Calcium 7.7 L 7.0 L Cardiac Enzymes 05/09/25 05/09/25 05/09/25 Range/Units 02:46 07:11 10:04 Troponin I 0.077 H* 0.155 H* D 0.121 H* D (0.000-0.034) ng/mL Liver Function 05/09/25 05/09/25 Range/Units 02:46 11:27 Total Bilirubin 2.2 H 1.7 H (0.2-1.3) mg/dL AST 60 H 74 H (17-59) U/L ALT 15 17 (6-50) U/L Alkaline Phosphatase 157 H 142 H (38-126) U/L Albumin 2.9 L 2.5 L (3.5-5.1) g/dL Urine 05/09/25 Range/Units 08:00 Urine Color Yellow (Yellow) Urine Appearance Clear (Clear) Urine pH 6.5 (5.0-9.0) Ur Specific [place] > 1.045 H (1.001-1.035) Urine Protein Negative (Negative) mg/dL Urine Glucose (UA) Negative (Negative) mg/dL Quality VTE Prophylaxis VTE prophylaxis: mechanical ordered Hospitalist MIPS Advance Care Plan I have confirmed that the patient's Advanced Care Plan is present, code status is documented, or surrogate decision maker is listed in patient medical record.: Yes Medication Reconciliation I have utilized all available resources to obtain, update and review the patients current medications (includes all prescriptions, OTC, herbals, cannabis, and nutritional supplements).: Yes
[2025-05-09] MEDS: SODIUM CHLORIDE 0.9% IV 1,000 ML 125 ML IV CONT ×2 (12:47→20:45)
[2025-05-09 15:51] LABS: Alveolar/Arterial O2 Gradient 98.6 mmHg; Fractional Inspired Oxygen 32 %; HCO3 ABG 22.1 mEq/l (22.0-26.0); Oxygen Content ABG 14.1 %vol (16.0-22.0); Oxygen Saturation ABG 97.3 % (95.0-100.0); PCO2 ABG 33.3 mmHg (35.0-45.0); PO2 ABG 90.6 mmHg (80.0-100.0); PO2 FiO2 Ratio Arterial Blood 2.83 %
[2025-05-09 16:17] LABS: Arterial Blood Gas Tidal Volume 450 ml; Arterial Blood Gas Ventilator rate 18 /MIN; Modified Allen's Test Pass; Site Drawn LEFT RADIAL
[2025-05-09] MEDS: PROPOFOL IV EMULSION 100 ML 10.56 MG IV CONT (16:42)
[2025-05-09 17:41] LABS: Triglycerides 181 mg/dL (<150)
[2025-05-09 18:02] LABS: Hematocrit 28.4 % (42.0-52.0); Hemoglobin 9.4 g/dL (14.0-18.0); Mean Corpuscular HGB Conc 33.1 g/dl (32-36); Mean Corpuscular Hemoglobin 29.2 pg (26-34); Mean Corpuscular Volume 88.2 fl (80-100); Platelet Count Result 52 k/mm3 (150-375); Red Blood Count 3.22 M/mm3 (4.6-6.20); White Blood Count 6.1 K/mm3 (4.5-10.0)
[2025-05-09] MEDS: MINERAL OIL/WHITE PETROLATUM OINTMENT 1 APPLIC EACH EYE (20:46)
[2025-05-10] VITALS (40 sets, daily range): BP systolic 99–169; BP diastolic 64–111; PULSE 73–106; RESP 17–29; TEMP 36.6–37.9; O2SAT 95–100
[2025-05-10] MEDS: PROPOFOL IV EMULSION 100 ML 13.2 MG IV CONT (00:27)
[2025-05-10] MEDS: OCTREOTIDE ACETATE 500 MCG in SODIUM CHLORIDE 0.9% IV 99 ML 10 MCG IV CONT ×2 (00:31→21:56)
[2025-05-10] MEDS: MIDAZOLAM 100MG/NS 100ML(*CRX) 100 MG/100 ML BAG IV CONT (04:00)
[2025-05-10] MEDS: SODIUM CHLORIDE 0.9% IV 1,000 ML 125 ML IV CONT (04:45)
[2025-05-10 04:49] LABS: Hematocrit 27.2 % (42.0-52.0); Hemoglobin 8.8 g/dL (14.0-18.0); Immature Granulocyte Percent A 0.5 % (0-0.5); Immature Platelet Fraction Pct 2.2 % (0.9-11.2); Lymphocytes Absolute Auto 1.13 K/mm3 (0.9-3.2); Mean Corpuscular HGB Conc 32.4 g/dl (32-36); Mean Corpuscular Hemoglobin 28.8 pg (26-34); Mean Corpuscular Volume 88.9 fl (80-100); Nucleated Red Blood Cells Absolute Auto 0.000 K/mm3 (0.0-0.012); Nucleated Red Blood Cells Perc 0.0 % (0.0-0.2); Platelet Count Result 50 k/mm3 (150-375); Red Blood Count 3.06 M/mm3 (4.6-6.20); White Blood Count 3.7 K/mm3 (4.5-10.0)
[2025-05-10 04:51] LABS: Alveolar/Arterial O2 Gradient 108.2 mmHg; Carboxyhemoglobin 2.0 % THb (0-2.0); Fractional Inspired Oxygen 32 %; HCO3 ABG 21.5 mEq/l (22.0-26.0); Methemoglobin ABG 0.2 %THb (0-1.5); Oxygen Content ABG 11.2 %vol (16.0-22.0); Oxygen Saturation ABG 97.3 % (95.0-100.0); PCO2 ABG 29.0 mmHg (35.0-45.0); PO2 ABG 86.0 mmHg (80.0-100.0); PO2 FiO2 Ratio Arterial Blood 2.69 %; Reduced Hemoglobin 3.0 %THb (0-5.0)
[2025-05-10 05:09] LABS: Alanine Aminotransferase 19 U/L (6-50); Albumin Level 2.2 g/dL (3.5-5.1); Alkaline Phosphatase 131 U/L (38-126); Anion Gap 0 mmol/L (4-12); Aspartate Amino Transferase 80 U/L (17-59); Bilirubin,Total 1.3 mg/dL (0.2-1.3); Blood Urea Nitrogen 20 mg/dL (9-20); Calcium 7.2 mg/dL (8.4-10.2); Carbon Dioxide 24 mmol/L (22-30); Chloride 111 mmol/L (98-107); Estimated CRCL calculation 103 ml/min; Estimated Glomerular Filt Rate > 60; Glucose 118 mg/dL (65-110); Lipase 76 U/L (23-300); Magnesium 1.9 mg/dL (1.6-2.3); Potassium 3.9 mmol/L (3.4-5.0); Sodium 135 mmol/L (137-145); Total Protein 5.5 g/dL (6.3-8.2)
[2025-05-10 05:12] LABS: INR 1.7; Prothrombin Time 19.7 Seconds (11.1-14.7)
[2025-05-10 05:13] LABS: Partial Thromboplastin Time 40.5 Seconds (22.3-36.8)
[2025-05-10 05:31] LABS: Anisocytosis 2+; Hypochromasia 2+; Microcytosis 2+ (NORMAL); Schistocytes None Seen
[2025-05-10 05:41] LABS: Thyroid Stimulating Hormone 0.222 uIU/mL (0.465-4.680)
[2025-05-10] MEDS: CALCIUM GLUC 2,000 MG/NS 100ML 2,000 MG/100 ML BAG 100 MG IVPB (07:44)
--- NOTE | 2025-05-10 08:52 | WPDINTPN2 ---
Assessment and Plan Assessment and Plan (1) Hematemesis: Code(s): K92.0 - Hematemesis Status: Acute Assessment and Plan: 05/09: patient presented with hematemesis at home and multiple episodes in the ER - GI was called into the ER early this morning to scope the patient -05/09/2025: EGD done in the ER: Grade 3 varices, 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 status post 3 bands. Moderate gastritis in the stomach, portal hypertensive changes, no mucosal bleeding. Old blood noted in the fundus of the stomach. The bulb and the 2nd portion of duodenum was normal with no ulcers or masses. - continue octreotide infusion per GI - continue IV PPI per GI (2) GI (gastrointestinal bleed): Qualifiers: GI bleed type/associated pathology: unspecified gastrointestinal hemorrhage type Qualified Code(s): K92.2 - Gastrointestinal hemorrhage, unspecified Code(s): K92.2 - Gastrointestinal hemorrhage, unspecified Status: Acute Assessment and Plan: as above (3) Acute blood loss anemia: Code(s): D62 - Acute posthemorrhagic anemia Status: Acute Assessment and Plan: patient received 1 unit of packed RBCs - repeat hemoglobin has been stable Continue to monitor hemoglobin (4) Thrombocytopenia: Code(s): D69.6 - Thrombocytopenia, unspecified Status: Acute Assessment and Plan: Thrombocytopenia likely related to cirrhosis and now consumptive - normal bleeding noted, patient is hemodynamically stable - continue to monitor (5) Cirrhosis: Code(s): K74.60 - Unspecified cirrhosis of liver Status: Acute Assessment and Plan: cirrhosis likely related to alcohol use disorder -MELD score is 17 - GI following, and recommended right upper quadrant ultrasound (6) Alcohol use disorder: Code(s): F10.90 - Alcohol use, unspecified, uncomplicated Status: Acute Assessment and Plan: alcohol use disorder: Patient drinks 8 beers a day for 20 years according to records - will monitor for alcohol withdrawal/DTs - once he is awake will have care coordination evaluate the patient and provide alcohol rehab information (7) Elevated troponin: Code(s): R79.89 - Other specified abnormal findings of blood chemistry Status: Acute Assessment and Plan: troponin elevated likely related to GI bleed - repeat troponins have been trending down - unknown if patient complained of any chest pain (8) Acute respiratory failure: Code(s): J96.00 - Acute respiratory failure, unspecified whether with hypoxia or hypercapnia Status: Acute Assessment and Plan: Ventilator setting chest x-ray and ABG reviewed Sedation holiday and weaning trial today Plan DVT prophylaxis: SCDs Stress ulcer prophylaxis: Protonix Nutrition: NPO Code Status: full code Critical Care Time Spent: 30 minutes Due to a high probability of clinically significant, life threatening deterioration, the patient required my highest level of preparedness to intervene emergently and I personally spent this critical care time directly and personally managing the patient. This critical care time included obtaining a history; examining the patient; pulse oximetry; ordering and review of studies; arranging urgent treatment with development of a management plan; evaluation of patient's response to treatment; frequent reassessment; and discussions with other providers. It was exclusive of separately billable procedures and treating other patients and teaching time. Please see Assessment and Plan section and the rest of the note for further information on patient assessment and treatment This dictation may have been done utilizing a voice recognition system. Attempts have been made to correct errors. However, there may be uncorrected grammatical, spelling, and recognitions errors present. Subjective Date/time seen: 05/10/25 Overnight events reviewed. Afebrile Continues to be on mechanical ventilation 30% FiO2 Continues to be sedated Vitals acceptable NPO No objective signs of bleeding Review of Systems Review of Systems: ROS unobtainable: Yes unobtainable due to endotracheal tube, unobtainable due to medical condition and unobtainable due to mental status Exam Narrative: General: intubated, sedated in no acute distress HEENT:? pupils equal and reactive, sclera is clear, ETT in place Neck:? some Respiratory:? clear to auscultation bilaterally, adequate air entry, no wheezing Cardiac:? S1-S2 normal, regular rate and rhythm Abdomen:? soft, nontender, nondistended, hypoactive bowel sounds Extremities:? no edema, palpable pedal pulses Neuro:? intubated, sedated, does not open his eyes or follow simple commands Skin:? no skin lesions noted Psych:? unable to assess at this time Objective Data Vital Signs Vital Signs: Vital Signs - 24 hr 05/09/25 09:43 05/09/25 10:00 05/09/25 10:00 Temperature Pulse Rate 89 82 85 Respiratory Rate 19 19 Blood Pressure Pulse Oximetry 100 Oxygen Delivery Mechanical Ventilation Fraction of Inspired Oxygen 40 05/09/25 10:15 05/09/25 10:16 05/09/25 10:30 Temperature 36.3 C L 36.3 C L 36.3 C L Pulse Rate 86 86 86 Respiratory Rate 18 18 18 Blood Pressure 90/59 L Pulse Oximetry 100 100 100 Oxygen Delivery Fraction of Inspired Oxygen 05/09/25 10:31 05/09/25 10:32 05/09/25 10:45 Temperature 36.3 C L 36.3 C L 36.3 C L Pulse Rate 85 86 85 Respiratory Rate 18 18 18 Blood Pressure 87/60 L 87/61 L 91/67 L Pulse Oximetry 100 100 100 Oxygen Delivery Fraction of Inspired Oxygen 05/09/25 10:46 05/09/25 11:00 05/09/25 11:00 Temperature 36.3 C L 36.2 C L 36.2 C L Pulse Rate 85 85 85 Respiratory Rate 18 18 18 Blood Pressure 94/64 L Pulse Oximetry 100 100 100 Oxygen Delivery Fraction of Inspired Oxygen 05/09/25 11:01 05/09/25 11:15 05/09/25 11:16 Temperature 36.2 C L 36.2 C L 36.2 C L Pulse Rate 85 85 85 Respiratory Rate 18 18 18 Blood Pressure 94/64 L 94/67 L Pulse Oximetry 100 100 100 Oxygen Delivery Fraction of Inspired Oxygen 05/09/25 11:30 05/09/25 11:31 05/09/25 11:45 Temperature 36.2 C L 36.2 C L 36.2 C L Pulse Rate 84 85 87 Respiratory Rate 18 18 18 Blood Pressure 111/72 Pulse Oximetry 100 100 100 Oxygen Delivery Fraction of Inspired Oxygen 05/09/25 11:46 05/09/25 12:00 05/09/25 12:00 Temperature 36.2 C L 36.2 C L Pulse Rate 86 88 90 Respiratory Rate 18 18 Blood Pressure 110/72 123/76 Pulse Oximetry 100 100 Oxygen Delivery Fraction of Inspired Oxygen 05/09/25 12:00 05/09/25 12:00 05/09/25 12:00 Temperature 36.2 C L Pulse Rate 92 82 84 Respiratory Rate 18 19 17 Blood Pressure Pulse Oximetry 100 99 Oxygen Delivery Mechanical Ventilation Fraction of Inspired Oxygen 40 05/09/25 12:00 05/09/25 12:01 05/09/25 12:01 Temperature 36.2 C L Pulse Rate 81 90 89 Respiratory Rate 20 18 Blood Pressure 123/76 Pulse Oximetry 100 100 Oxygen Delivery Mechanical Ventilation Fraction of Inspired Oxygen 40 05/09/25 12:15 05/09/25 12:16 05/09/25 12:30 Temperature 36.6 C 36.3 C L 36.3 C L Pulse Rate 88 89 95 Respiratory Rate 18 18 18 Blood Pressure 111/72 Pulse Oximetry 100 100 100 Oxygen Delivery Fraction of Inspired Oxygen 05/09/25 12:31 05/09/25 12:45 05/09/25 12:46 Temperature 36.3 C L Pulse Rate 95 93 91 Respiratory Rate 15 18 16 Blood Pressure 125/70 118/77 Pulse Oximetry 100 100 100 Oxygen Delivery Fraction of Inspired Oxygen 05/09/25 13:00 05/09/25 13:01 05/09/25 13:15 Temperature Pulse Rate 93 95 88 Respiratory Rate 18 18 18 Blood Pressure 111/78 Pulse Oximetry 99 99 100 Oxygen Delivery Fraction of Inspired Oxygen 05/09/25 13:16 05/09/25 13:30 05/09/25 13:31 Temperature Pulse Rate 87 85 86 Respiratory Rate 18 18 18 Blood Pressure 106/64 98/64 L Pulse Oximetry 100 100 100 Oxygen Delivery Fraction of Inspired Oxygen 05/09/25 13:45 05/09/25 13:46 05/09/25 14:00 Temperature 36.8 C Pulse Rate 83 84 83 Respiratory Rate 18 18 18 Blood Pressure 101/65 109/73 Pulse Oximetry 100 100 100 Oxygen Delivery Fraction of Inspired Oxygen 05/09/25 14:00 05/09/25 14:00 05/09/25 14:00 Temperature Pulse Rate 85 85 85 Respiratory Rate 18 17 Blood Pressure Pulse Oximetry 100 Oxygen Delivery Fraction of Inspired Oxygen 05/09/25 14:00 05/09/25 14:01 05/09/25 14:15 Temperature Pulse Rate 85 83 86 Respiratory Rate 17 18 18 Blood Pressure 109/73 Pulse Oximetry 100 100 Oxygen Delivery Fraction of Inspired Oxygen 05/09/25 14:16 05/09/25 14:32 05/09/25 14:45 Temperature Pulse Rate 84 84 83 Respiratory Rate 18 18 18 Blood Pressure 100/73 Pulse Oximetry 99 100 100 Oxygen Delivery Fraction of Inspired Oxygen 05/09/25 14:46 05/09/25 15:00 05/09/25 15:00 Temperature 36.6 C Pulse Rate 83 86 85 Respiratory Rate 18 18 Blood Pressure 114/63 121/76 Pulse Oximetry 100 100 100 Oxygen Delivery Mechanical Ventilation Fraction of Inspired Oxygen 40 05/09/25 15:00 05/09/25 15:01 05/09/25 15:15 Temperature Pulse Rate 85 86 95 Respiratory Rate 16 18 19 Blood Pressure 121/76 Pulse Oximetry 100 100 100 Oxygen Delivery Fraction of Inspired Oxygen 05/09/25 15:16 05/09/25 15:30 05/09/25 15:31 Temperature Pulse Rate 95 101 H 100 Respiratory Rate 19 18 19 Blood Pressure 132/75 139/84 Pulse Oximetry 100 100 98 Oxygen Delivery Fraction of Inspired Oxygen 05/09/25 15:45 05/09/25 15:46 05/09/25 16:00 Temperature Pulse Rate 96 95 100 Respiratory Rate 18 18 Blood Pressure 112/74 Pulse Oximetry 98 98 Oxygen Delivery Fraction of Inspired Oxygen 05/09/25 16:00 05/09/25 16:00 05/09/25 16:00 Temperature Pulse Rate 101 H 84 89 Respiratory Rate 21 H 17 18 Blood Pressure Pulse Oximetry 99 99 Oxygen Delivery Mechanical Ventilation Fraction of Inspired Oxygen 40 05/09/25 16:01 05/09/25 16:15 05/09/25 16:16 Temperature Pulse Rate 100 104 H 104 H Respiratory Rate 15 22 H 22 H Blood Pressure 130/82 117/88 Pulse Oximetry 100 99 99 Oxygen Delivery Fraction of Inspired Oxygen 05/09/25 16:17 05/09/25 16:30 05/09/25 16:31 Temperature Pulse Rate 104 H 103 H 102 H Respiratory Rate 20 17 18 Blood Pressure 134/89 Pulse Oximetry 98 97 98 Oxygen Delivery Fraction of Inspired Oxygen 05/09/25 16:42 05/09/25 16:45 05/09/25 16:46 Temperature Pulse Rate 84 104 H 104 H Respiratory Rate 17 18 23 H Blood Pressure 136/70 Pulse Oximetry 97 98 Oxygen Delivery Fraction of Inspired Oxygen 05/09/25 17:00 05/09/25 17:01 05/09/25 17:15 Temperature Pulse Rate 105 H 104 H Respiratory Rate 10 L 8 L Blood Pressure 134/77 Pulse Oximetry 98 97 97 Oxygen Delivery Fraction of Inspired Oxygen 05/09/25 17:16 12/08/25 17:17 05/09/25 17:23 Temperature Pulse Rate 87 Respiratory Rate 19 Blood Pressure 111/94 H Pulse Oximetry 98 99 Oxygen Delivery Fraction of Inspired Oxygen 05/09/25 17:24 05/09/25 17:30 05/09/25 17:31 Temperature Pulse Rate 87 92 90 Respiratory Rate 18 18 17 Blood Pressure 112/67 Pulse Oximetry 98 98 Oxygen Delivery Fraction of Inspired Oxygen 05/09/25 17:35 05/09/25 17:45 05/09/25 17:46 Temperature Pulse Rate 89 86 86 Respiratory Rate 18 18 Blood Pressure 102/63 Pulse Oximetry 98 98 97 Oxygen Delivery Mechanical Ventilation Fraction of Inspired Oxygen 32 05/09/25 18:00 05/09/25 18:00 05/09/25 18:01 Temperature Pulse Rate 85 85 86 Respiratory Rate 18 18 Blood Pressure 102/66 Pulse Oximetry 99 98 Oxygen Delivery Fraction of Inspired Oxygen 05/09/25 19:00 05/09/25 19:50 05/09/25 19:50 Temperature Pulse Rate 85 85 85 Respiratory Rate 18 18 Blood Pressure 117/75 Pulse Oximetry 99 99 99 Oxygen Delivery Mechanical Ventilation Mechanical Ventilation Fraction of Inspired Oxygen 32 32 05/09/25 20:00 05/09/25 20:00 05/09/25 20:00 Temperature 37.1 C Pulse Rate 84 Respiratory Rate 18 Blood Pressure 94/58 L Pulse Oximetry 97 97 Oxygen Delivery Mechanical Ventilation Fraction of Inspired Oxygen 30 30 05/09/25 20:00 05/09/25 20:00 05/09/25 20:00 Temperature Pulse Rate 84 84 84 Respiratory Rate 18 18 Blood Pressure Pulse Oximetry Oxygen Delivery Fraction of Inspired Oxygen 05/09/25 21:00 05/09/25 22:00 05/09/25 22:00 Temperature 37.2 C Pulse Rate 81 80 80 Respiratory Rate 18 18 Blood Pressure 100/61 97/67 L Pulse Oximetry 100 97 Oxygen Delivery Fraction of Inspired Oxygen 05/09/25 22:00 05/09/25 22:00 05/09/25 23:00 Temperature 36.6 C Pulse Rate 80 80 76 Respiratory Rate 18 18 18 Blood Pressure 102/59 L Pulse Oximetry 99 Oxygen Delivery Fraction of Inspired Oxygen 05/10/25 00:00 05/10/25 00:00 05/10/25 00:00 Temperature Pulse Rate 76 76 Respiratory Rate 18 18 Blood Pressure Pulse Oximetry 100 Oxygen Delivery Mechanical Ventilation Fraction of Inspired Oxygen 30 05/10/25 00:00 05/10/25 00:00 05/10/25 00:00 Temperature 36.7 C Pulse Rate 77 78 Respiratory Rate 18 Blood Pressure 104/66 Pulse Oximetry 100 Oxygen Delivery Fraction of Inspired Oxygen 30 05/10/25 00:15 05/10/25 00:26 05/10/25 00:27 Temperature Pulse Rate 78 77 77 Respiratory Rate 18 18 Blood Pressure Pulse Oximetry 99 Oxygen Delivery Mechanical Ventilation Fraction of Inspired Oxygen 30 05/10/25 00:32 05/10/25 01:00 05/10/25 01:40 Temperature Pulse Rate 78 78 78 Respiratory Rate 18 18 Blood Pressure 99/64 L Pulse Oximetry 99 98 Oxygen Delivery Mechanical Ventilation Fraction of Inspired Oxygen 30 05/10/25 02:00 05/10/25 02:00 05/10/25 02:00 Temperature 36.6 C Pulse Rate 78 78 78 Respiratory Rate 18 18 Blood Pressure 101/67 Pulse Oximetry 98 Oxygen Delivery Fraction of Inspired Oxygen 05/10/25 02:00 05/10/25 03:00 05/10/25 04:00 Temperature 36.7 C Pulse Rate 78 77 76 Respiratory Rate 18 18 18 Blood Pressure 105/68 103/68 Pulse Oximetry 100 100 Oxygen Delivery Fraction of Inspired Oxygen 05/10/25 04:00 05/10/25 04:00 05/10/25 04:00 Temperature Pulse Rate 76 Respiratory Rate 18 Blood Pressure Pulse Oximetry 100 Oxygen Delivery Mechanical Ventilation Fraction of Inspired Oxygen 30 30 05/10/25 04:00 05/10/25 04:00 05/10/25 04:00 Temperature Pulse Rate 76 76 76 Respiratory Rate 18 18 Blood Pressure Pulse Oximetry Oxygen Delivery Fraction of Inspired Oxygen 05/10/25 04:41 05/10/25 05:00 05/10/25 05:55 Temperature Pulse Rate 73 75 77 Respiratory Rate 18 18 Blood Pressure 105/67 Pulse Oximetry 100 100 Oxygen Delivery Mechanical Ventilation Fraction of Inspired Oxygen 30 05/10/25 06:00 05/10/25 06:00 05/10/25 06:00 Temperature 36.8 C Pulse Rate 76 76 76 Respiratory Rate 18 18 Blood Pressure 113/67 Pulse Oximetry 98 Oxygen Delivery Fraction of Inspired Oxygen 05/10/25 06:00 05/10/25 07:00 05/10/25 07:35 Temperature Pulse Rate 76 77 76 Respiratory Rate 18 19 Blood Pressure 117/72 Pulse Oximetry 98 99 Oxygen Delivery Mechanical Ventilation Fraction of Inspired Oxygen 30 05/10/25 07:39 05/10/25 07:40 Temperature Pulse Rate 78 78 Respiratory Rate 18 18 Blood Pressure Pulse Oximetry Oxygen Delivery Fraction of Inspired Oxygen Intake/Output Intake/Output: Intake & Output 05/07/25 05/08/25 05/09/25 05/10/25 23:59 23:59 23:59 23:59 Intake Total 2777.6 1251.5 Output Total 1350 500 Balance 1427.6 751.5 Meds/Results Medications: Active Medications Generic Name Dose Route Start Last Admin Trade Name Freq PRN Reason Stop Dose Admin Folic Acid 1 mg 05/09/25 09:00 05/09/25 12:15 Folic Acid 1 Mg/0.2 Ml Inj IV PUSH 1 mg QAM RUBY Administration Ceftriaxone Sodium 1 gm/ 50 mls @ 100 mls/hr 05/10/25 09:00 Sodium Chloride IVPB Q24H RUBY Octreotide Acetate 500 mcg/ 100 mls @ 10 mls/hr 05/09/25 02:30 05/10/25 00:31 Sodium Chloride IV CONT 50 mcg/hr .Q10H RUBY 10 mls/hr 50 MCG/HR Administration Midazolam HCl 100 mg in 100 mls @ 0 mls/hr 05/09/25 06:45 05/10/25 07:40 Versed 100 Mg/Ns 100 Ml IV CONT 0 mg/hr .Q0M RUBY 0 mls/hr Protocol Titration Propofol 100 mls @ 0 mls/hr 05/09/25 16:25 05/10/25 07:39 Diprivan IV CONT 0 mcg/kg/min .Q0M RUBY 0 mls/hr Protocol Titration Sodium Phosphate 20 mm/ 256.6667 mls @ 50 mls/hr 05/10/25 08:00 Dextrose IVPB 05/10/25 13:07 ONCE ONE Multi-Ingred Cream/Lotion/Oil/Oint 1 applic 05/09/25 21:00 05/09/25 20:46 Mineral Oil/White Petrolatum Ointment EACH EYE 1 applic Q12HR RUBY Administration Pantoprazole Sodium 40 mg 05/10/25 09:00 Pantoprazole Sodium Iv 40 Mg Vial IV PUSH QAM RUBY Thiamine HCl 100 mg 05/09/25 09:00 05/09/25 12:14 Thiamine Hcl 200 Mg/2 Ml Vial IV PUSH 100 mg QAM RUBY Administration Radiology Results: ITS Impressions Head CT 05/09/25 06:25 IMPRESSION: 1. No acute intracranial findings. Chest/Abdomen/Pelvis CTA 05/09/25 06:58 IMPRESSION: 1. No active hemorrhage. 2. Cirrhosis of the liver. 3. Wall thickening of the esophagus, consistent with edema versus esophagitis. 4. Umbilical hernia and bilateral inguinal hernias containing fat. Abdomen Ultrasound 05/09/25 16:35 IMPRESSION: 1. No evidence of gallstones. Bile ducts are normal in size. 2. Hepatomegaly with nodular liver and heterogeneous texture with cirrhosis. 3. Mildly dilated portal vein consistent with portal venous hypertension. There is no ascites. Chest X-Ray 05/10/25 08:18 Impression: CHF Labs Labs: Laboratory Results - last 24 hr 05/09/25 05/09/25 05/09/25 02:46 07:11 08:00 WBC RBC Hgb Hct MCV MCH MCHC RDW Plt Count MPV Immature Gran % (Auto) Neut % (Auto) Lymph % (Auto) Osborne % (Auto) Eos % (Auto) Baso % (Auto) Lymph # (Auto) Osborne # (Auto) Eos # (Auto) Baso # (Auto) Abs Immat Gran (auto) Absolute Neuts (auto) Absolute Nucleated RBC Total Counted Neutrophils % (Manual) Band Neutrophils % Lymphocytes % (Manual) Monocytes % (Manual) Eosinophils % (Manual) Nucleated RBC % Abs Neuts (Manual) Abs Lymphs (Manual) Abs Monocytes (Manual) Absolute Eos (Manual) Smudge Cells Platelet Estimate % Immature Plt Fraction Hypochromasia Anisocytosis Microcytosis Schistocytes PT INR APTT Puncture Site ABG pH ABG pCO2 ABG pO2 ABG PO2/FiO2 Ratio ABG HCO3 ABG O2 Saturation ABG O2 Content ABG Base Excess A-a Gradient Oxyhemoglobin Carboxyhemoglobin Methemoglobin Reduced Hemoglobin Total Hemoglobin O2 Delivery Device O2 Liters/Min Minute Volume Vent Rate Vent Mode FiO2 Tidal Volume PEEP Peak Inspir Pressure Pressure Support Sodium Potassium Chloride Carbon Dioxide Anion Gap BUN Creatinine Estim Creat Clear Calc Estimated GFR Glucose POC Capillary Glucose Lactic Acid Calcium Phosphorus Magnesium Total Bilirubin AST ALT Alkaline Phosphatase Troponin I Total Protein Albumin Triglycerides Lipase TSH Urine Opiates Screen Negative Urine Methadone Screen Negative Ur Barbiturates Screen Negative Ur Phencyclidine Scrn Negative Ur Amphetamine Screen Negative U Benzodiazepines Scrn Negative Urine Cocaine Screen Negative U Cannabinoids Screen Negative Hepatitis A IgM Ab Negative Hep Bs Antigen Negative Hep B Core IgM Ab Negative Hepatitis C Ab Screen Negative HIV 1&2 Ab/P24 Ag 4thGn Negative Crossmatch See Detail 05/09/25 05/09/25 05/09/25 10:04 11:22 11:27 WBC 6.4 RBC 3.45 L Hgb 10.0 L Hct 30.5 L MCV 88.4 MCH 29.0 MCHC 32.8 RDW 16.7 H Plt Count 59 L MPV 8.7 Immature Gran % (Auto) Not Reportable Neut % (Auto) Not Reportable Lymph % (Auto) Not Reportable Osborne % (Auto) Not Reportable Eos % (Auto) Not Reportable Baso % (Auto) Not Reportable Lymph # (Auto) Not Reportable Osborne # (Auto) Not Reportable Eos # (Auto) Not Reportable Baso # (Auto) Not Reportable Abs Immat Gran (auto) Not Reportable Absolute Neuts (auto) Not Reportable Absolute Nucleated RBC Not Reportable Total Counted 100 Neutrophils % (Manual) 83 H Band Neutrophils % 2 Lymphocytes % (Manual) 12.0 L Monocytes % (Manual) 2 L Eosinophils % (Manual) 1 Nucleated RBC % Not Reportable Abs Neuts (Manual) 5.44 Abs Lymphs (Manual) 0.76 L Abs Monocytes (Manual) 0.12 Absolute Eos (Manual) 0.06 Smudge Cells Present Platelet Estimate Decreased % Immature Plt Fraction 2.1 Hypochromasia 1+ Anisocytosis 1+ Microcytosis Schistocytes None seen PT 21.1 H INR 1.9 APTT 38.0 H Puncture Site ABG pH ABG pCO2 ABG pO2 ABG PO2/FiO2 Ratio ABG HCO3 ABG O2 Saturation ABG O2 Content ABG Base Excess A-a Gradient Oxyhemoglobin Carboxyhemoglobin Methemoglobin Reduced Hemoglobin Total Hemoglobin O2 Delivery Device O2 Liters/Min Minute Volume Vent Rate Vent Mode FiO2 Tidal Volume PEEP Peak Inspir Pressure Pressure Support Sodium 137 Potassium 4.3 Chloride 112 H Carbon Dioxide 22 Anion Gap 3 L BUN 18 Creatinine 0.68 L Estim Creat Clear Calc 108 Estimated GFR > 60 Glucose 95 POC Capillary Glucose Lactic Acid 2.4 H 2.8 H Calcium 7.0 L Phosphorus 3.3 Magnesium 1.8 Total Bilirubin 1.7 H AST 74 H ALT 17 Alkaline Phosphatase 142 H Troponin I 0.121 H* D Total Protein 6.0 L Albumin 2.5 L Triglycerides 181 H Lipase TSH Urine Opiates Screen Urine Methadone Screen Ur Barbiturates Screen Ur Phencyclidine Scrn Ur Amphetamine Screen U Benzodiazepines Scrn Urine Cocaine Screen U Cannabinoids Screen Hepatitis A IgM Ab Hep Bs Antigen Hep B Core IgM Ab Hepatitis C Ab Screen HIV 1&2 Ab/P24 Ag 4thGn Crossmatch 05/09/25 05/09/25 05/09/25 15:41 17:52 20:10 WBC 6.1 RBC 3.22 L Hgb 9.4 L Hct 28.4 L MCV 88.2 MCH 29.2 MCHC 33.1 RDW 16.7 H Plt Count 52 L MPV 9.4 Immature Gran % (Auto) Neut % (Auto) Lymph % (Auto) Osborne % (Auto) Eos % (Auto) Baso % (Auto) Lymph # (Auto) Osborne # (Auto) Eos # (Auto) Baso # (Auto) Abs Immat Gran (auto) Absolute Neuts (auto) Absolute Nucleated RBC Total Counted Neutrophils % (Manual) Band Neutrophils % Lymphocytes % (Manual) Monocytes % (Manual) Eosinophils % (Manual) Nucleated RBC % Abs Neuts (Manual) Abs Lymphs (Manual) Abs Monocytes (Manual) Absolute Eos (Manual) Smudge Cells Platelet Estimate % Immature Plt Fraction Hypochromasia Anisocytosis Microcytosis Schistocytes PT INR APTT Puncture Site Left radial ABG pH 7.440 ABG pCO2 33.3 L ABG pO2 90.6 ABG PO2/FiO2 Ratio 2.83 ABG HCO3 22.1 ABG O2 Saturation 97.3 ABG O2 Content 14.1 L ABG Base Excess -1.5 A-a Gradient 98.6 Oxyhemoglobin 96.2 Carboxyhemoglobin Methemoglobin Reduced Hemoglobin Total Hemoglobin 10.3 L O2 Delivery Device Ventilator O2 Liters/Min Not Reportable Minute Volume Not Reportable Vent Rate 18 Vent Mode Cmv FiO2 32 Tidal Volume 450 PEEP 5 Peak Inspir Pressure Not Reportable Pressure Support Not Reportable Sodium Potassium Chloride Carbon Dioxide Anion Gap BUN Creatinine Estim Creat Clear Calc Estimated GFR Glucose POC Capillary Glucose Lactic Acid 2.5 H 2.3 H Calcium Phosphorus Magnesium Total Bilirubin AST ALT Alkaline Phosphatase Troponin I Total Protein Albumin Triglycerides Lipase TSH Urine Opiates Screen Urine Methadone Screen Ur Barbiturates Screen Ur Phencyclidine Scrn Ur Amphetamine Screen U Benzodiazepines Scrn Urine Cocaine Screen U Cannabinoids Screen Hepatitis A IgM Ab Hep Bs Antigen Hep B Core IgM Ab Hepatitis C Ab Screen HIV 1&2 Ab/P24 Ag 4thGn Crossmatch 05/10/25 05/10/25 05/10/25 00:25 04:27 04:40 WBC 3.7 L RBC 3.06 L Hgb 8.8 L Hct 27.2 L MCV 88.9 MCH 28.8 MCHC 32.4 RDW 16.8 H Plt Count 50 L MPV 9.9 Immature Gran % (Auto) 0.5 Neut % (Auto) 51.8 Lymph % (Auto) 30.8 Osborne % (Auto) 10.9 H Eos % (Auto) 4.6 H Baso % (Auto) 1.4 H Lymph # (Auto) 1.13 Osborne # (Auto) 0.4 Eos # (Auto) 0.2 Baso # (Auto) 0.1 Abs Immat Gran (auto) 0.02 Absolute Neuts (auto) 1.9 Absolute Nucleated RBC 0.000 Total Counted Neutrophils % (Manual) Band Neutrophils % Not Reportable Lymphocytes % (Manual) Monocytes % (Manual) Eosinophils % (Manual) Nucleated RBC % 0.0 Abs Neuts (Manual) Abs Lymphs (Manual) Abs Monocytes (Manual) Absolute Eos (Manual) Smudge Cells Platelet Estimate Decreased % Immature Plt Fraction 2.2 Hypochromasia 2+ Anisocytosis 2+ Microcytosis 2+ Schistocytes None seen PT 19.7 H INR 1.7 APTT 40.5 H Puncture Site ABG pH 7.487 H ABG pCO2 29.0 L ABG pO2 86.0 ABG PO2/FiO2 Ratio 2.69 ABG HCO3 21.5 L ABG O2 Saturation 97.3 ABG O2 Content 11.2 L ABG Base Excess -1.5 A-a Gradient 108.2 Oxyhemoglobin 94.8 Carboxyhemoglobin 2.0 Methemoglobin 0.2 Reduced Hemoglobin 3.0 Total Hemoglobin 8.3 L O2 Delivery Device O2 Liters/Min Minute Volume Vent Rate Vent Mode FiO2 32 Tidal Volume PEEP Peak Inspir Pressure Pressure Support Sodium 135 L Potassium 3.9 Chloride 111 H Carbon Dioxide 24 Anion Gap 0 L BUN 20 Creatinine 0.72 Estim Creat Clear Calc 103 Estimated GFR > 60 Glucose 118 H POC Capillary Glucose 114 H Lactic Acid 2.2 H Calcium 7.2 L Phosphorus 2.2 L Magnesium 1.9 Total Bilirubin 1.3 AST 80 H ALT 19 Alkaline Phosphatase 131 H Troponin I Total Protein 5.5 L Albumin 2.2 L Triglycerides Lipase 76 TSH 0.222 L Urine Opiates Screen Urine Methadone Screen Ur Barbiturates Screen Ur Phencyclidine Scrn Ur Amphetamine Screen U Benzodiazepines Scrn Urine Cocaine Screen U Cannabinoids Screen Hepatitis A IgM Ab Hep Bs Antigen Hep B Core IgM Ab Hepatitis C Ab Screen HIV 1&2 Ab/P24 Ag 4thGn Crossmatch Quality VTE Prophylaxis VTE prophylaxis: mechanical ordered
[2025-05-10] MEDS: SODIUM PHOSPHATE 20 MM in DEXTROSE 5% IN WATER 250 ML 50 MM IVPB (09:00)
[2025-05-10] MEDS: THIAMINE HCL 200 MG/2 ML VIAL 100 MG IV PUSH (09:01)
[2025-05-10] MEDS: PANTOPRAZOLE SODIUM IV 40 MG VIAL IV PUSH (09:01)
[2025-05-10] MEDS: cefTRIAXone 1 GM in SODIUM CHLORIDE 0.9% IV 50 ML 100 ML IVPB (09:01)
[2025-05-10] MEDS: FOLIC ACID 1 MG/0.2 ML INJ IV PUSH (10:00)
[2025-05-10 11:12] LABS: Ammonia 83 umol/L (9-30)
[2025-05-10] MEDS: LACTULOSE 20 GM/30 ML UDC FEED TUBE ×2 (12:59→17:07)
[2025-05-10] MEDS: LACTULOSE ENEMA 200 GM/1,000 ML ENEMA RECTAL (12:59)
[2025-05-10 14:32] LABS: Alveolar/Arterial O2 Gradient 105.2 mmHg; Fractional Inspired Oxygen 30 %; HCO3 ABG 23.5 mEq/l (22.0-26.0); Oxygen Content ABG 13.4 %vol (16.0-22.0); Oxygen Saturation ABG 95.1 % (95.0-100.0); PCO2 ABG 33.1 mmHg (35.0-45.0); PO2 ABG 69.8 mmHg (80.0-100.0); PO2 FiO2 Ratio Arterial Blood 2.33 %
[2025-05-10 14:58] LABS: Modified Allen's Test Pass; Site Drawn RIGHT RADIAL
[2025-05-10 15:00] LABS: Arterial Blood Gas Pressure Support 8 cmH2O
[2025-05-10 16:04] LABS: Hematocrit 31.9 % (42.0-52.0); Hemoglobin 10.3 g/dL (14.0-18.0); Immature Platelet Fraction Pct 2.2 % (0.9-11.2); Mean Corpuscular HGB Conc 32.3 g/dl (32-36); Mean Corpuscular Hemoglobin 28.7 pg (26-34); Mean Corpuscular Volume 88.9 fl (80-100); Platelet Count Result 70 k/mm3 (150-375); Red Blood Count 3.59 M/mm3 (4.6-6.20); White Blood Count 6.7 K/mm3 (4.5-10.0)
--- NOTE | 2025-05-10 16:06 | WPDGIPROGNO ---
Progress Note: A&P Assessment and Plan (1) Esophageal varices: Code(s): I85.00 - Esophageal varices without bleeding Status: Acute Assessment and Plan: this was cause of gib treated with banding, iv octreotide, antibiotics no more bleeding egd in 6 weeks before discharge will need carvedilol as prophylaxis (2) GI (gastrointestinal bleed): Qualifiers: GI bleed type/associated pathology: unspecified gastrointestinal hemorrhage type Qualified Code(s): K92.2 - Gastrointestinal hemorrhage, unspecified Code(s): K92.2 - Gastrointestinal hemorrhage, unspecified Status: Acute (3) Melena: Code(s): K92.1 - Melena Status: Acute (4) Acute blood loss anemia: Code(s): D62 - Acute posthemorrhagic anemia Status: Acute Assessment and Plan: trend h/h (5) Liver encephalopathy: Code(s): K76.82 - Hepatic encephalopathy Status: Acute Assessment and Plan: given one dose of lactulose enema and more awake will attempt extubation soon (6) Thrombocytopenia: Code(s): D69.6 - Thrombocytopenia, unspecified Status: Acute Assessment and Plan: from cirrhosis (7) Cirrhosis, alcoholic: Code(s): K70.30 - Alcoholic cirrhosis of liver without ascites Status: Acute Assessment and Plan: this is new diagnosis thiamine will need follow-up in office (8) Hematemesis: Code(s): K92.0 - Hematemesis Status: Acute Assessment and Plan: no more episodes (9) Non-ST elevation FL (NSTEMI): Code(s): I21.4 - Non-ST elevation (NSTEMI) myocardial infarction Status: Acute (10) Acute respiratory failure: Code(s): J96.00 - Acute respiratory failure, unspecified whether with hypoxia or hypercapnia Status: Acute (11) Hemorrhagic shock: Code(s): R57.8 - Other shock Status: Acute Subjective Date/time seen: 05/10/25 16:06 Interval history: intubated but following commands, plan is to extubate later had lactulose enema and noted dark stool but no more report of hematemesis Review of Systems Review of Systems: All systems reviewed & are unremarkable except as noted in HPI and below Exam Narrative: General: intubated, no acute distress HEENT:? pupils equal and reactive, sclera is clear, ETT in place, OGT in place Neck:? supple Respiratory:? clear to auscultation bilaterally, adequate air entry, no wheezing Cardiac:? S1-S2 normal, regular rate and rhythm Abdomen:? soft, nontender, nondistended, hypoactive bowel sounds Extremities:? no edema, palpable pedal pulses Neuro:? intubated, off sedation and awake Skin:? no skin lesions noted Psych:? unable to assess at this time Objective Data Vital Signs Vital Signs: Vital Signs - 24 hr 05/09/25 16:15 05/09/25 16:16 05/09/25 16:17 Temperature Pulse Rate 104 H 104 H 104 H Respiratory Rate 22 H 22 H 20 Blood Pressure 117/88 Pulse Oximetry 99 99 98 Oxygen Delivery Oxygen Flow Rate Fraction of Inspired Oxygen 05/09/25 16:30 05/09/25 16:31 05/09/25 16:42 Temperature Pulse Rate 103 H 102 H 84 Respiratory Rate 17 18 17 Blood Pressure 134/89 Pulse Oximetry 97 98 Oxygen Delivery Oxygen Flow Rate Fraction of Inspired Oxygen 05/09/25 16:45 05/09/25 16:46 05/09/25 17:00 Temperature Pulse Rate 104 H 104 H 105 H Respiratory Rate 18 23 H 10 L Blood Pressure 136/70 Pulse Oximetry 97 98 98 Oxygen Delivery Oxygen Flow Rate Fraction of Inspired Oxygen 05/09/25 17:01 05/09/25 17:15 05/09/25 17:16 Temperature Pulse Rate 104 H Respiratory Rate 8 L Blood Pressure 134/77 111/94 H Pulse Oximetry 97 97 98 Oxygen Delivery Oxygen Flow Rate Fraction of Inspired Oxygen 05/09/25 17:17 05/09/25 17:23 05/09/25 17:24 Temperature Pulse Rate 87 87 Respiratory Rate 19 18 Blood Pressure Pulse Oximetry 99 Oxygen Delivery Oxygen Flow Rate Fraction of Inspired Oxygen 05/09/25 17:30 05/09/25 17:31 05/09/25 17:35 Temperature Pulse Rate 92 90 89 Respiratory Rate 18 17 Blood Pressure 112/67 Pulse Oximetry 98 98 98 Oxygen Delivery Mechanical Ventilation Oxygen Flow Rate Fraction of Inspired Oxygen 32 05/09/25 17:45 05/09/25 17:46 05/09/25 18:00 Temperature Pulse Rate 86 86 85 Respiratory Rate 18 18 Blood Pressure 102/63 Pulse Oximetry 98 97 Oxygen Delivery Oxygen Flow Rate Fraction of Inspired Oxygen 05/09/25 18:00 05/09/25 18:01 05/09/25 19:00 Temperature Pulse Rate 85 86 85 Respiratory Rate 18 18 18 Blood Pressure 102/66 117/75 Pulse Oximetry 99 98 99 Oxygen Delivery Oxygen Flow Rate Fraction of Inspired Oxygen 05/09/25 19:50 05/09/25 19:50 05/09/25 20:00 Temperature 98.7 F Pulse Rate 85 85 84 Respiratory Rate 18 18 Blood Pressure 94/58 L Pulse Oximetry 99 99 97 Oxygen Delivery Mechanical Ventilation Mechanical Ventilation Oxygen Flow Rate Fraction of Inspired Oxygen 32 32 05/09/25 20:00 05/09/25 20:00 05/09/25 20:00 Temperature Pulse Rate 84 Respiratory Rate Blood Pressure Pulse Oximetry 97 Oxygen Delivery Mechanical Ventilation Oxygen Flow Rate Fraction of Inspired Oxygen 30 30 05/09/25 20:00 05/09/25 20:00 05/09/25 21:00 Temperature Pulse Rate 84 84 81 Respiratory Rate 18 18 18 Blood Pressure 100/61 Pulse Oximetry 100 Oxygen Delivery Oxygen Flow Rate Fraction of Inspired Oxygen 05/09/25 22:00 05/09/25 22:00 05/09/25 22:00 Temperature 98.9 F Pulse Rate 80 80 80 Respiratory Rate 18 18 Blood Pressure 97/67 L Pulse Oximetry 97 Oxygen Delivery Oxygen Flow Rate Fraction of Inspired Oxygen 05/09/25 22:00 05/09/25 23:00 05/10/25 00:00 Temperature 97.8 F Pulse Rate 80 76 76 Respiratory Rate 18 18 18 Blood Pressure 102/59 L Pulse Oximetry 99 Oxygen Delivery Oxygen Flow Rate Fraction of Inspired Oxygen 05/10/25 00:00 05/10/25 00:00 05/10/25 00:00 Temperature Pulse Rate 76 Respiratory Rate 18 Blood Pressure Pulse Oximetry 100 Oxygen Delivery Mechanical Ventilation Oxygen Flow Rate Fraction of Inspired Oxygen 30 30 05/10/25 00:00 05/10/25 00:00 05/10/25 00:15 Temperature 98.1 F Pulse Rate 77 78 78 Respiratory Rate 18 Blood Pressure 104/66 Pulse Oximetry 100 99 Oxygen Delivery Mechanical Ventilation Oxygen Flow Rate Fraction of Inspired Oxygen 30 05/10/25 00:26 05/10/25 00:27 05/10/25 00:32 Temperature Pulse Rate 77 77 78 Respiratory Rate 18 18 18 Blood Pressure Pulse Oximetry Oxygen Delivery Oxygen Flow Rate Fraction of Inspired Oxygen 05/10/25 01:00 05/10/25 01:40 05/10/25 02:00 Temperature 97.9 F Pulse Rate 78 78 78 Respiratory Rate 18 18 Blood Pressure 99/64 L 101/67 Pulse Oximetry 99 98 98 Oxygen Delivery Mechanical Ventilation Oxygen Flow Rate Fraction of Inspired Oxygen 30 05/10/25 02:00 05/10/25 02:00 05/10/25 02:00 Temperature Pulse Rate 78 78 78 Respiratory Rate 18 18 Blood Pressure Pulse Oximetry Oxygen Delivery Oxygen Flow Rate Fraction of Inspired Oxygen 05/10/25 03:00 05/10/25 04:00 05/10/25 04:00 Temperature 98.0 F Pulse Rate 77 76 Respiratory Rate 18 18 Blood Pressure 105/68 103/68 Pulse Oximetry 100 100 100 Oxygen Delivery Mechanical Ventilation Oxygen Flow Rate Fraction of Inspired Oxygen 30 05/10/25 04:00 05/10/25 04:00 05/10/25 04:00 Temperature Pulse Rate 76 76 Respiratory Rate 18 18 Blood Pressure Pulse Oximetry Oxygen Delivery Oxygen Flow Rate Fraction of Inspired Oxygen 30 05/10/25 04:00 05/10/25 04:00 05/10/25 04:41 Temperature Pulse Rate 76 76 73 Respiratory Rate 18 Blood Pressure Pulse Oximetry 100 Oxygen Delivery Mechanical Ventilation Oxygen Flow Rate Fraction of Inspired Oxygen 30 05/10/25 05:00 05/10/25 05:55 05/10/25 06:00 Temperature 98.2 F Pulse Rate 75 77 76 Respiratory Rate 18 18 18 Blood Pressure 105/67 113/67 Pulse Oximetry 100 98 Oxygen Delivery Oxygen Flow Rate Fraction of Inspired Oxygen 05/10/25 06:00 05/10/25 06:00 05/10/25 06:00 Temperature Pulse Rate 76 76 76 Respiratory Rate 18 18 Blood Pressure Pulse Oximetry Oxygen Delivery Oxygen Flow Rate Fraction of Inspired Oxygen 05/10/25 07:00 05/10/25 07:35 05/10/25 07:39 Temperature Pulse Rate 77 76 78 Respiratory Rate 19 18 Blood Pressure 117/72 Pulse Oximetry 98 99 Oxygen Delivery Mechanical Ventilation Oxygen Flow Rate Fraction of Inspired Oxygen 30 05/10/25 07:40 05/10/25 08:00 05/10/25 08:00 Temperature Pulse Rate 78 78 78 Respiratory Rate 18 18 Blood Pressure Pulse Oximetry 99 Oxygen Delivery Mechanical Ventilation Oxygen Flow Rate Fraction of Inspired Oxygen 30 05/10/25 08:00 05/10/25 08:00 05/10/25 09:00 Temperature 99.4 F 99.5 F Pulse Rate 76 78 Respiratory Rate 18 18 Blood Pressure 122/74 124/76 Pulse Oximetry 99 99 Oxygen Delivery Oxygen Flow Rate Fraction of Inspired Oxygen 30 05/10/25 10:00 05/10/25 10:00 05/10/25 10:00 Temperature Pulse Rate 83 83 83 Respiratory Rate 18 18 Blood Pressure Pulse Oximetry Oxygen Delivery Oxygen Flow Rate Fraction of Inspired Oxygen 05/10/25 10:00 05/10/25 10:42 05/10/25 11:00 Temperature Pulse Rate 83 83 85 Respiratory Rate 18 18 Blood Pressure 129/81 127/86 Pulse Oximetry 97 97 97 Oxygen Delivery Mechanical Ventilation Oxygen Flow Rate Fraction of Inspired Oxygen 30 05/10/25 12:00 05/10/25 12:00 05/10/25 12:00 Temperature Pulse Rate 85 85 Respiratory Rate 18 Blood Pressure Pulse Oximetry 97 Oxygen Delivery Mechanical Ventilation Oxygen Flow Rate Fraction of Inspired Oxygen 30 30 05/10/25 12:00 05/10/25 12:00 05/10/25 13:00 Temperature 100.3 F H Pulse Rate 85 85 85 Respiratory Rate 18 18 18 Blood Pressure 127/81 Pulse Oximetry 98 Oxygen Delivery Oxygen Flow Rate Fraction of Inspired Oxygen 05/10/25 13:42 05/10/25 13:44 05/10/25 14:00 Temperature Pulse Rate 90 102 H 92 Respiratory Rate 18 Blood Pressure Pulse Oximetry 97 97 Oxygen Delivery Mechanical Ventilation Mechanical Ventilation Oxygen Flow Rate Fraction of Inspired Oxygen 30 30 05/10/25 14:00 05/10/25 14:00 05/10/25 14:00 Temperature 100.3 F H Pulse Rate 92 94 106 H Respiratory Rate 17 22 H Blood Pressure 128/84 Pulse Oximetry 97 Oxygen Delivery Oxygen Flow Rate Fraction of Inspired Oxygen 05/10/25 15:00 05/10/25 15:51 Temperature Pulse Rate 103 H Respiratory Rate 18 Blood Pressure 143/109 H Pulse Oximetry 97 97 Oxygen Delivery Nasal Cannula Oxygen Flow Rate 3 Fraction of Inspired Oxygen Intake/Output Intake/Output: Intake & Output 05/07/25 05/08/25 05/09/25 05/10/25 23:59 23:59 23:59 23:59 Intake Total 2777.6 1401.5 Output Total 1350 500 Balance 1427.6 901.5 Meds/Results Medications: Active Medications Generic Name Dose Route Start Last Admin Trade Name Deonna PRN Reason Stop Dose Admin Folic Acid 1 mg 05/09/25 09:00 05/10/25 10:00 Folic Acid 1 Mg/0.2 Ml Inj IV PUSH 1 mg QAM RUBY Administration Ceftriaxone Sodium 1 gm/ 50 mls @ 100 mls/hr 05/10/25 09:00 05/10/25 09:31 Sodium Chloride IVPB Infused Q24H RUBY Infusion Octreotide Acetate 500 mcg/ 100 mls @ 10 mls/hr 05/09/25 02:30 05/10/25 12:00 Sodium Chloride IV CONT Infused .Q10H RUBY Infusion 50 MCG/HR Midazolam HCl 100 mg in 100 mls @ 0 mls/hr 05/09/25 06:45 05/10/25 14:00 Versed 100 Mg/Ns 100 Ml IV CONT 0 mg/hr .Q0M RUBY 0 mls/hr Protocol Titration Propofol 100 mls @ 0 mls/hr 05/09/25 16:25 05/10/25 14:00 Diprivan IV CONT 0 mcg/kg/min .Q0M RUBY 0 mls/hr Protocol Titration Lactulose 20 gm 05/10/25 13:00 05/10/25 12:59 Lactulose 20 Gm/30 Ml Udc FEED TUBE 20 gm TID RUBY Administration Multi-Ingred Cream/Lotion/Oil/Oint 1 applic 05/09/25 21:00 05/10/25 10:01 Mineral Oil/White Petrolatum Ointment EACH EYE Not Given Q12HR RUBY Pantoprazole Sodium 40 mg 05/10/25 09:00 05/10/25 09:01 Pantoprazole Sodium Iv 40 Mg Vial IV PUSH 40 mg QAM RUBY Administration Thiamine HCl 100 mg 05/09/25 09:00 12 09:01 Thiamine Hcl 200 Mg/2 Ml Vial IV PUSH 100 mg QAM RUBY Administration Radiology Results: ITS Impressions Head CT 05/09/25 06:25 IMPRESSION: 1. No acute intracranial findings. Chest/Abdomen/Pelvis CTA 05/09/25 06:58 IMPRESSION: 1. No active hemorrhage. 2. Cirrhosis of the liver. 3. Wall thickening of the esophagus, consistent with edema versus esophagitis. 4. Umbilical hernia and bilateral inguinal hernias containing fat. Abdomen Ultrasound 05/09/25 16:35 IMPRESSION: 1. No evidence of gallstones. Bile ducts are normal in size. 2. Hepatomegaly with nodular liver and heterogeneous texture with cirrhosis. 3. Mildly dilated portal vein consistent with portal venous hypertension. There is no ascites. Chest X-Ray 05/10/25 08:18 Impression: CHF Abdomen X-Ray 05/10/25 12:44 IMPRESSION: 1. Nonobstructive bowel gas pattern with nasogastric tube tip in proximal side port in the body the stomach. 2. Bibasilar lung disease which could represent atelectasis or pneumonia. Labs Labs: Laboratory Results - last 24 hr 05/09/25 05/09/25 05/09/25 11:22 15:41 17:52 WBC 6.1 RBC 3.22 L Hgb 9.4 L Hct 28.4 L MCV 88.2 MCH 29.2 MCHC 33.1 RDW 16.7 H Plt Count 52 L MPV 9.4 Immature Gran % (Auto) Neut % (Auto) Lymph % (Auto) Hughes % (Auto) Eos % (Auto) Baso % (Auto) Lymph # (Auto) Hughes # (Auto) Eos # (Auto) Baso # (Auto) Abs Immat Gran (auto) Absolute Neuts (auto) Absolute Nucleated RBC Band Neutrophils % Nucleated RBC % Platelet Estimate % Immature Plt Fraction Hypochromasia Anisocytosis Microcytosis Schistocytes PT INR APTT Puncture Site Left radial ABG pH 7.440 ABG pCO2 33.3 L ABG pO2 90.6 ABG PO2/FiO2 Ratio 2.83 ABG HCO3 22.1 ABG O2 Saturation 97.3 ABG O2 Content 14.1 L ABG Base Excess -1.5 A-a Gradient 98.6 Oxyhemoglobin 96.2 Carboxyhemoglobin Methemoglobin Reduced Hemoglobin Total Hemoglobin 10.3 L O2 Delivery Device Ventilator O2 Liters/Min Not Reportable Minute Volume Not Reportable Vent Rate 18 Vent Mode Cmv FiO2 32 Tidal Volume 450 PEEP 5 Peak Inspir Pressure Not Reportable Pressure Support Not Reportable Sodium Potassium Chloride Carbon Dioxide Anion Gap BUN Creatinine Estim Creat Clear Calc Estimated GFR Glucose POC Capillary Glucose Lactic Acid 2.5 H Calcium Phosphorus Magnesium Total Bilirubin AST ALT Alkaline Phosphatase Ammonia Total Protein Albumin Triglycerides 181 H Lipase TSH 05/09/25 05/10/25 05/10/25 20:10 00:25 04:27 WBC 3.7 L RBC 3.06 L Hgb 8.8 L Hct 27.2 L MCV 88.9 MCH 28.8 MCHC 32.4 RDW 16.8 H Plt Count 50 L MPV 9.9 Immature Gran % (Auto) 0.5 Neut % (Auto) 51.8 Lymph % (Auto) 30.8 Hughes % (Auto) 10.9 H Eos % (Auto) 4.6 H Baso % (Auto) 1.4 H Lymph # (Auto) 1.13 Hughes # (Auto) 0.4 Eos # (Auto) 0.2 Baso # (Auto) 0.1 Abs Immat Gran (auto) 0.02 Absolute Neuts (auto) 1.9 Absolute Nucleated RBC 0.000 Band Neutrophils % Not Reportable Nucleated RBC % 0.0 Platelet Estimate Decreased % Immature Plt Fraction 2.2 Hypochromasia 2+ Anisocytosis 2+ Microcytosis 2+ Schistocytes None seen PT 19.7 H INR 1.7 APTT 40.5 H Puncture Site ABG pH ABG pCO2 ABG pO2 ABG PO2/FiO2 Ratio ABG HCO3 ABG O2 Saturation ABG O2 Content ABG Base Excess A-a Gradient Oxyhemoglobin Carboxyhemoglobin Methemoglobin Reduced Hemoglobin Total Hemoglobin O2 Delivery Device O2 Liters/Min Minute Volume Vent Rate Vent Mode FiO2 Tidal Volume PEEP Peak Inspir Pressure Pressure Support Sodium 135 L Potassium 3.9 Chloride 111 H Carbon Dioxide 24 Anion Gap 0 L BUN 20 Creatinine 0.72 Estim Creat Clear Calc 103 Estimated GFR > 60 Glucose 118 H POC Capillary Glucose 114 H Lactic Acid 2.3 H 2.2 H Calcium 7.2 L Phosphorus 2.2 L Magnesium 1.9 Total Bilirubin 1.3 AST 80 H ALT 19 Alkaline Phosphatase 131 H Ammonia Total Protein 5.5 L Albumin 2.2 L Triglycerides Lipase 76 TSH 0.222 L 05/10/25 05/10/25 05/10/25 04:40 10:58 14:36 WBC RBC Hgb Hct MCV MCH MCHC RDW Plt Count MPV Immature Gran % (Auto) Neut % (Auto) Lymph % (Auto) Hughes % (Auto) Eos % (Auto) Baso % (Auto) Lymph # (Auto) Hughes # (Auto) Eos # (Auto) Baso # (Auto) Abs Immat Gran (auto) Absolute Neuts (auto) Absolute Nucleated RBC Band Neutrophils % Nucleated RBC % Platelet Estimate % Immature Plt Fraction Hypochromasia Anisocytosis Microcytosis Schistocytes PT INR APTT Puncture Site Right radial ABG pH 7.487 H 7.469 H ABG pCO2 29.0 L 33.1 L ABG pO2 86.0 69.8 L ABG PO2/FiO2 Ratio 2.69 2.33 ABG HCO3 21.5 L 23.5 ABG O2 Saturation 97.3 95.1 ABG O2 Content 11.2 L 13.4 L ABG Base Excess -1.5 0.2 A-a Gradient 108.2 105.2 Oxyhemoglobin 94.8 93.1 Carboxyhemoglobin 2.0 Methemoglobin 0.2 Reduced Hemoglobin 3.0 Total Hemoglobin 8.3 L 10.2 L O2 Delivery Device Ventilator O2 Liters/Min Not Reportable Minute Volume Not Reportable Vent Rate Not Reportable Vent Mode Spontaneous FiO2 32 30 Tidal Volume Not Reportable PEEP 5 Peak Inspir Pressure Not Reportable Pressure Support 8 Sodium Potassium Chloride Carbon Dioxide Anion Gap BUN Creatinine Estim Creat Clear Calc Estimated GFR Glucose POC Capillary Glucose Lactic Acid Calcium Phosphorus Magnesium Total Bilirubin AST ALT Alkaline Phosphatase Ammonia 83 H Total Protein Albumin Triglycerides Lipase TSH
[2025-05-11] VITALS (21 sets, daily range): BP systolic 104–169; BP diastolic 67–99; PULSE 58–88; RESP 16–26; TEMP 36.6–37.1; O2SAT 95–98
[2025-05-11 04:58] LABS: Hematocrit 28.0 % (42.0-52.0); Hemoglobin 9.0 g/dL (14.0-18.0); Immature Platelet Fraction Pct 1.9 % (0.9-11.2); Mean Corpuscular HGB Conc 32.1 g/dl (32-36); Mean Corpuscular Hemoglobin 28.7 pg (26-34); Mean Corpuscular Volume 89.2 fl (80-100); Platelet Count Result 54 k/mm3 (150-375); Red Blood Count 3.14 M/mm3 (4.6-6.20); White Blood Count 4.6 K/mm3 (4.5-10.0)
[2025-05-11 05:08] LABS: Alanine Aminotransferase 20 U/L (6-50); Albumin Level 2.6 g/dL (3.5-5.1); Alkaline Phosphatase 133 U/L (38-126); Ammonia 21 umol/L (9-30); Anion Gap 2 mmol/L (4-12); Aspartate Amino Transferase 93 U/L (17-59); Bilirubin,Total 2.6 mg/dL (0.2-1.3); Blood Urea Nitrogen 20 mg/dL (9-20); Calcium 7.6 mg/dL (8.4-10.2); Carbon Dioxide 26 mmol/L (22-30); Chloride 109 mmol/L (98-107); Estimated CRCL calculation 102 ml/min; Estimated Glomerular Filt Rate > 60; Glucose 108 mg/dL (65-110); Magnesium 1.9 mg/dL (1.6-2.3); Potassium 3.6 mmol/L (3.4-5.0); Sodium 137 mmol/L (137-145); Total Protein 6.2 g/dL (6.3-8.2)
[2025-05-11] MEDS: VANCOMYCIN 1,250 MG/NS 250 ML 1,250 MG/250 ML BAG 166.67 MG IVPB (07:06)
[2025-05-11] MEDS: VANCOMYCIN HCL 1,000 MG in SODIUM CHLORIDE 0.9% IV 250 ML 250 MG IVPB (08:31)
[2025-05-11] MEDS: POTASSIUM BICARBONATE 25 MEQ TABEF 50 MEQ PO (08:31)
[2025-05-11] MEDS: OCTREOTIDE ACETATE 500 MCG in SODIUM CHLORIDE 0.9% IV 99 ML 10 MCG IV CONT ×2 (08:33→20:17)
--- NOTE | 2025-05-11 08:50 | WPDINTPN2 ---
Assessment and Plan Assessment and Plan (1) Hematemesis: Code(s): K92.0 - Hematemesis Status: Acute Assessment and Plan: 05/09: patient presented with hematemesis at home and multiple episodes in the ER - GI was called into the ER early this morning to scope the patient -05/09/2025: EGD done in the ER: Grade 3 varices, 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 status post 3 bands. Moderate gastritis in the stomach, portal hypertensive changes, no mucosal bleeding. Old blood noted in the fundus of the stomach. The bulb and the 2nd portion of duodenum was normal with no ulcers or masses. - continue octreotide infusion per GI for 72 hours - continue IV PPI per GI (2) GI (gastrointestinal bleed): Qualifiers: GI bleed type/associated pathology: unspecified gastrointestinal hemorrhage type Qualified Code(s): K92.2 - Gastrointestinal hemorrhage, unspecified Code(s): K92.2 - Gastrointestinal hemorrhage, unspecified Status: Acute Assessment and Plan: as above (3) Acute blood loss anemia: Code(s): D62 - Acute posthemorrhagic anemia Status: Acute Assessment and Plan: patient received 1 unit of packed RBCs - repeat hemoglobin has been stable Continue to monitor hemoglobin (4) Thrombocytopenia: Code(s): D69.6 - Thrombocytopenia, unspecified Status: Acute Assessment and Plan: Thrombocytopenia likely related to cirrhosis and now consumptive - normal bleeding noted, patient is hemodynamically stable - continue to monitor (5) Cirrhosis: Code(s): K74.60 - Unspecified cirrhosis of liver Status: Acute Assessment and Plan: cirrhosis likely related to alcohol use disorder -MELD score is 17 - GI following, and recommended right upper quadrant ultrasound -ammonia level improved. Continue lactulose but decrease dose to b.i.d. (6) Alcohol use disorder: Code(s): F10.90 - Alcohol use, unspecified, uncomplicated Status: Acute Assessment and Plan: alcohol use disorder: Patient drinks 8 beers a day for 20 years according to records - will monitor for alcohol withdrawal/DTs -thiamine and folic acid (7) Elevated troponin: Code(s): R79.89 - Other specified abnormal findings of blood chemistry Status: Acute Assessment and Plan: troponin elevated likely related to GI bleed - repeat troponins have been trending down - unknown if patient complained of any chest pain (8) Acute respiratory failure: Code(s): J96.00 - Acute respiratory failure, unspecified whether with hypoxia or hypercapnia Status: Acute Assessment and Plan: Patient extubated on05/10 Now on nasal cannula Add incentive spirometry (9) Hypertension: Code(s): I10 - Essential (primary) hypertension Status: Acute Assessment and Plan: Start Coreg (10) Electrolyte abnormality: Code(s): E87.8 - Other disorders of electrolyte and fluid balance, not elsewhere classified Status: Acute Assessment and Plan: Replace low potassium Plan DVT prophylaxis: SCDs Stress ulcer prophylaxis: Protonix Nutrition: Clear liquid diet, advance as tolerated Code Status: full code Transfer out of ICU today Subjective Date/time seen: 05/11/25 He was extubated yesterday after a successful weaning trial. He is much more awake and responsive. He is not oriented. He states he is having cough and chest pain with coughing. He also complains of sore throat. All other systems were reviewed and were negative. He is on 1 L nasal cannula. Blood pressure is elevated. Sinus rhythm. He had multiple bowel movements overnight. Exam Narrative: General: Alert awake and in no acute distress HEENT:? pupils equal and reactive, sclera is clear, Neck:? some Respiratory:? clear to auscultation bilaterally, adequate air entry, no wheezing Cardiac:? S1-S2 normal, regular rate and rhythm Abdomen:? soft, nontender, nondistended, hypoactive bowel sounds Extremities:? no edema, palpable pedal pulses Neuro:? Alert awake, follows commands all 4 extremities, AO x 0 but able to carry conversation with his friends on FaceTime Skin:? no skin lesions noted Psych:? unable to assess at this time Objective Data Vital Signs Vital Signs: Vital Signs - 24 hr 05/10/25 09:00 05/10/25 10:00 05/10/25 10:00 Temperature 37.5 C Pulse Rate 78 83 83 Respiratory Rate 18 18 18 Blood Pressure 124/76 Pulse Oximetry 99 Oxygen Delivery Oxygen Flow Rate Fraction of Inspired Oxygen 05/10/25 10:00 05/10/25 10:00 05/10/25 10:42 Temperature Pulse Rate 83 83 83 Respiratory Rate 18 Blood Pressure 129/81 Pulse Oximetry 97 97 Oxygen Delivery Mechanical Ventilation Oxygen Flow Rate Fraction of Inspired Oxygen 30 05/10/25 11:00 05/10/25 12:00 05/10/25 12:00 Temperature Pulse Rate 85 85 85 Respiratory Rate 18 18 Blood Pressure 127/86 Pulse Oximetry 97 97 Oxygen Delivery Mechanical Ventilation Oxygen Flow Rate Fraction of Inspired Oxygen 30 05/10/25 12:00 05/10/25 12:00 05/10/25 12:00 Temperature Pulse Rate 85 85 Respiratory Rate 18 18 Blood Pressure Pulse Oximetry Oxygen Delivery Oxygen Flow Rate Fraction of Inspired Oxygen 30 05/10/25 13:00 05/10/25 13:42 05/10/25 13:44 Temperature 37.9 C H Pulse Rate 85 90 102 H Respiratory Rate 18 Blood Pressure 127/81 Pulse Oximetry 98 97 97 Oxygen Delivery Mechanical Ventilation Mechanical Ventilation Oxygen Flow Rate Fraction of Inspired Oxygen 30 30 05/10/25 14:00 05/10/25 14:00 05/10/25 14:00 Temperature 37.9 C H Pulse Rate 92 92 94 Respiratory Rate 18 17 22 H Blood Pressure 128/84 Pulse Oximetry 97 Oxygen Delivery Oxygen Flow Rate Fraction of Inspired Oxygen 05/10/25 14:00 05/10/25 15:00 05/10/25 15:51 Temperature Pulse Rate 106 H 103 H Respiratory Rate 18 Blood Pressure 143/109 H Pulse Oximetry 97 97 Oxygen Delivery Nasal Cannula Oxygen Flow Rate 3 Fraction of Inspired Oxygen 05/10/25 16:00 05/10/25 16:00 05/10/25 16:23 Temperature Pulse Rate 96 96 96 Respiratory Rate 18 18 Blood Pressure 141/91 H Pulse Oximetry 97 97 Oxygen Delivery Nasal Cannula Oxygen Flow Rate 2 Fraction of Inspired Oxygen 30 05/10/25 17:00 05/10/25 18:00 05/10/25 18:00 Temperature Pulse Rate 101 H 101 H 101 H Respiratory Rate 20 22 H Blood Pressure 154/111 H 164/101 H Pulse Oximetry 100 Oxygen Delivery Oxygen Flow Rate Fraction of Inspired Oxygen 05/10/25 19:00 05/10/25 19:49 05/10/25 20:00 Temperature Pulse Rate 104 H 90 Respiratory Rate 29 H 20 Blood Pressure 147/83 H Pulse Oximetry 99 96 97 Oxygen Delivery Nasal Cannula Nasal Cannula Oxygen Flow Rate 1 1 Fraction of Inspired Oxygen 24 05/10/25 20:00 05/10/25 20:00 05/10/25 21:00 Temperature 36.8 C Pulse Rate 90 90 92 Respiratory Rate 21 H 22 H Blood Pressure 130/82 134/90 Pulse Oximetry 96 95 Oxygen Delivery Oxygen Flow Rate Fraction of Inspired Oxygen 05/10/25 22:00 05/10/25 22:00 05/10/25 23:00 Temperature 36.7 C Pulse Rate 90 90 90 Respiratory Rate 24 H 19 Blood Pressure 153/105 H 169/92 H Pulse Oximetry 95 98 Oxygen Delivery Oxygen Flow Rate Fraction of Inspired Oxygen 05/11/25 00:00 05/11/25 00:00 05/11/25 00:00 Temperature 36.7 C Pulse Rate 79 78 Respiratory Rate 21 H Blood Pressure 129/84 Pulse Oximetry 96 96 Oxygen Delivery Nasal Cannula Oxygen Flow Rate 1 Fraction of Inspired Oxygen 05/11/25 01:00 05/11/25 02:00 05/11/25 02:00 Temperature 36.8 C Pulse Rate 85 88 88 Respiratory Rate 23 H 20 Blood Pressure 147/89 H 167/95 H Pulse Oximetry 97 97 Oxygen Delivery Oxygen Flow Rate Fraction of Inspired Oxygen 05/11/25 03:00 05/11/25 04:00 05/11/25 04:00 Temperature 36.7 C Pulse Rate 83 74 Respiratory Rate 21 H 26 H Blood Pressure 169/92 H 165/88 H Pulse Oximetry 96 98 96 Oxygen Delivery Nasal Cannula Oxygen Flow Rate 1 Fraction of Inspired Oxygen 05/11/25 04:00 05/11/25 05:00 05/11/25 06:00 Temperature 36.7 C Pulse Rate 74 79 72 Respiratory Rate 24 H 19 Blood Pressure 148/99 H 141/85 H Pulse Oximetry 97 98 Oxygen Delivery Oxygen Flow Rate Fraction of Inspired Oxygen 05/11/25 06:00 05/11/25 07:00 05/11/25 08:00 Temperature Pulse Rate 72 73 73 Respiratory Rate 20 21 H Blood Pressure 142/96 H Pulse Oximetry 97 97 Oxygen Delivery Nasal Cannula Oxygen Flow Rate 1 Fraction of Inspired Oxygen 05/11/25 08:00 05/11/25 08:00 Temperature 37.1 C Pulse Rate 73 76 Respiratory Rate 17 Blood Pressure 158/97 H Pulse Oximetry 98 Oxygen Delivery Oxygen Flow Rate Fraction of Inspired Oxygen Intake/Output Intake/Output: Intake & Output 05/08/25 05/09/25 05/10/25 05/11/25 23:59 23:59 23:59 23:59 Intake Total 2777.6 1641.5 100 Output Total 1350 950 850 Balance 1427.6 691.5 -750 Meds/Results Medications: Active Medications Generic Name Dose Route Start Last Admin Trade Name Deonna PRN Reason Stop Dose Admin Carvedilol 3.125 mg 05/11/25 09:00 Carvedilol 3.125 Mg Tablet PO Q12HR [facility] Folic Acid 1 mg 05/11/25 09:00 Folic Acid 1 Mg Tablet PO DAILY [facility] Ceftriaxone Sodium 1 gm/ 50 mls @ 100 mls/hr 05/10/25 09:00 05/10/25 09:31 Sodium Chloride IVPB Infused Q24H [facility] Infusion Octreotide Acetate 500 mcg/ 100 mls @ 10 mls/hr 05/09/25 02:30 05/11/25 08:33 Sodium Chloride IV CONT 05/12/25 02:29 50 mcg/hr .Q10H RUBY 10 mls/hr 50 MCG/HR Administration Vancomycin HCl 1,000 mg/ 250 mls @ 250 mls/hr 05/11/25 08:30 05/11/25 08:31 Sodium Chloride IVPB 05/11/25 09:29 250 mls/hr ONCE ONE Administration Vancomycin HCl 1,500 mg in 500 mls @ 250 mls/hr 05/11/25 20:00 Vancomycin 1,500 Mg/Ns 500 Ml IVPB Q12H [facility] Lactulose 20 gm 05/11/25 09:00 Lactulose 20 Gm/30 Ml Udc BY MOUTH BID [facility] Pantoprazole Sodium 40 mg 05/10/25 09:00 05/10/25 09:01 Pantoprazole Sodium Iv 40 Mg Vial IV PUSH 40 mg QAM [facility] Administration Thiamine HCl 100 mg 05/11/25 09:00 Thiamine Hcl 100 Mg Tablet PO QAM [facility] Radiology Results: ITS Impressions Head CT 05/09/25 06:25 IMPRESSION: 1. No acute intracranial findings. Chest/Abdomen/Pelvis CTA 05/09/25 06:58 IMPRESSION: 1. No active hemorrhage. 2. Cirrhosis of the liver. 3. Wall thickening of the esophagus, consistent with edema versus esophagitis. 4. Umbilical hernia and bilateral inguinal hernias containing fat. Abdomen Ultrasound 05/09/25 16:35 IMPRESSION: 1. No evidence of gallstones. Bile ducts are normal in size. 2. Hepatomegaly with nodular liver and heterogeneous texture with cirrhosis. 3. Mildly dilated portal vein consistent with portal venous hypertension. There is no ascites. Chest X-Ray 05/10/25 08:18 Impression: CHF Abdomen X-Ray 05/10/25 12:44 IMPRESSION: 1. Nonobstructive bowel gas pattern with nasogastric tube tip in proximal side port in the body the stomach. 2. Bibasilar lung disease which could represent atelectasis or pneumonia. Labs Labs: Laboratory Results - last 24 hr 05/10/25 05/10/25 05/10/25 10:58 14:36 15:57 WBC 6.7 RBC 3.59 L Hgb 10.3 L Hct 31.9 L MCV 88.9 MCH 28.7 MCHC 32.3 RDW 16.8 H Plt Count 70 L MPV 9.3 % Immature Plt Fraction 2.2 Puncture Site Right radial ABG pH 7.469 H ABG pCO2 33.1 L ABG pO2 69.8 L ABG PO2/FiO2 Ratio 2.33 ABG HCO3 23.5 ABG O2 Saturation 95.1 ABG O2 Content 13.4 L ABG Base Excess 0.2 A-a Gradient 105.2 Oxyhemoglobin 93.1 Total Hemoglobin 10.2 L O2 Delivery Device Ventilator O2 Liters/Min Not Reportable Minute Volume Not Reportable Vent Rate Not Reportable Vent Mode Spontaneous FiO2 30 Tidal Volume Not Reportable PEEP 5 Peak Inspir Pressure Not Reportable Pressure Support 8 Sodium Potassium Chloride Carbon Dioxide Anion Gap BUN Creatinine Estim Creat Clear Calc Estimated GFR Glucose Calcium Phosphorus Magnesium Total Bilirubin AST ALT Alkaline Phosphatase Ammonia 83 H Total Protein Albumin 05/11/25 04:42 WBC 4.6 RBC 3.14 L Hgb 9.0 L Hct 28.0 L MCV 89.2 MCH 28.7 MCHC 32.1 RDW 16.4 H Plt Count 54 L MPV 9.5 % Immature Plt Fraction 1.9 Puncture Site ABG pH ABG pCO2 ABG pO2 ABG PO2/FiO2 Ratio ABG HCO3 ABG O2 Saturation ABG O2 Content ABG Base Excess A-a Gradient Oxyhemoglobin Total Hemoglobin O2 Delivery Device O2 Liters/Min Minute Volume Vent Rate Vent Mode FiO2 Tidal Volume PEEP Peak Inspir Pressure Pressure Support Sodium 137 Potassium 3.6 Chloride 109 H Carbon Dioxide 26 Anion Gap 2 L BUN 20 Creatinine 0.83 Estim Creat Clear Calc 102 Estimated GFR > 60 Glucose 108 Calcium 7.6 L Phosphorus 3.0 Magnesium 1.9 Total Bilirubin 2.6 H AST 93 H ALT 20 Alkaline Phosphatase 133 H Ammonia 21 Total Protein 6.2 L Albumin 2.6 L
[2025-05-11] MEDS: cefTRIAXone 1 GM in SODIUM CHLORIDE 0.9% IV 50 ML 100 ML IVPB (09:01)
[2025-05-11] MEDS: LACTULOSE 20 GM/30 ML UDC BY MOUTH ×2 (09:02→17:22)
[2025-05-11] MEDS: THIAMINE HCL 100 MG TABLET PO (09:02)
[2025-05-11] MEDS: PANTOPRAZOLE SODIUM IV 40 MG VIAL IV PUSH (09:02)
[2025-05-11] MEDS: FOLIC ACID 1 MG TABLET PO (09:02)
--- NOTE | 2025-05-11 16:55 | P.PNGI_ITS ---
Progress Note: A&P Assessment and Plan (1) Esophageal varices: Code(s): I85.00 - Esophageal varices without bleeding Status: Acute Assessment and Plan: this was cause of gib treated with banding, iv octreotide- dc tomorrow, antibiotics no more bleeding egd in 6 weeks before discharge will need carvedilol as prophylaxis (2) GI (gastrointestinal bleed): Qualifiers: GI bleed type/associated pathology: unspecified gastrointestinal hemorrhage type Qualified Code(s): K92.2 - Gastrointestinal hemorrhage, unspecified Code(s): K92.2 - Gastrointestinal hemorrhage, unspecified Status: Acute Assessment and Plan: no more episodes (3) Melena: Code(s): K92.1 - Melena Status: Acute (4) Acute blood loss anemia: Code(s): D62 - Acute posthemorrhagic anemia Status: Acute Assessment and Plan: continue to monitor h/h (5) Liver encephalopathy: Code(s): K76.82 - Hepatic encephalopathy Status: Acute Assessment and Plan: started lactulose (6) Thrombocytopenia: Code(s): D69.6 - Thrombocytopenia, unspecified Status: Acute Assessment and Plan: from cirrhosis (7) Cirrhosis, alcoholic: Code(s): K70.30 - Alcoholic cirrhosis of liver without ascites Status: Acute Assessment and Plan: this is new diagnosis thiamine will need follow-up in office (8) Hematemesis: Code(s): K92.0 - Hematemesis Status: Acute Assessment and Plan: no more episodes (9) Non-ST elevation DE (NSTEMI): Code(s): I21.4 - Non-ST elevation (NSTEMI) myocardial infarction Status: Acute (10) Acute respiratory failure: Code(s): J96.00 - Acute respiratory failure, unspecified whether with hypoxia or hype rcapnia Status: Acute Assessment and Plan: extubated and doing better (11) Hemorrhagic shock: Code(s): R57.8 - Other shock Status: Acute Assessment and Plan: resolved Subjective Date/time seen: 05/11/25 16:55 Interval history: extubated, he is awake and alert, c/o headache Review of Systems Review of Systems: All systems reviewed & are unremarkable except as noted in HPI and below Exam Narrative: General: Alert awake and in no acute distress HEENT:? pupils equal and reactive, sclera is clear, Neck:? supple Respiratory:? clear to auscultation bilaterally, adequate air entry, no wheezing Cardiac:? S1-S2 normal, regular rate and rhythm Abdomen:? soft, nontender, nondistended, hypoactive bowel sounds Extremities:? no edema, palpable pedal pulses Neuro:? Alert awake, follows commands all 4 extremities Skin:? no skin lesions noted Psych:? anxious Objective Data Vital Signs Vital Signs: Vital Signs - 24 hr 05/10/25 17:00 05/10/25 18:00 05/10/25 18:00 Temperature Pulse Rate 101 H 101 H 101 H Respiratory Rate 20 22 H Blood Pressure 154/111 H 164/101 H Pulse Oximetry 100 Oxygen Delivery Oxygen Flow Rate Fraction of Inspired Oxygen 05/10/25 19:00 05/10/25 19:49 05/10/25 20:00 Temperature Pulse Rate 104 H 90 Respiratory Rate 29 H 20 Blood Pressure 147/83 H Pulse Oximetry 99 96 97 Oxygen Delivery Nasal Cannula Nasal Cannula Oxygen Flow Rate 1 1 Fraction of Inspired Oxygen 24 05/10/25 20:00 05/10/25 20:00 05/10/25 21:00 Temperature 98.3 F Pulse Rate 90 90 92 Respiratory Rate 21 H 22 H Blood Pressure 130/82 134/90 Pulse Oximetry 96 95 Oxygen Delivery Oxygen Flow Rate Fraction of Inspired Oxygen 05/10/25 22:00 05/10/25 22:00 05/10/25 23:00 Temperature 98.1 F Pulse Rate 90 90 90 Respiratory Rate 24 H 19 Blood Pressure 153/105 H 169/92 H Pulse Oximetry 95 98 Oxygen Delivery Oxygen Flow Rate Fraction of Inspired Oxygen 05/11/25 00:00 05/11/25 00:00 05/11/25 00:00 Temperature 98.0 F Pulse Rate 79 78 Respiratory Rate 21 H Blood Pressure 129/84 Pulse Oximetry 96 96 Oxygen Delivery Nasal Cannula Oxygen Flow Rate 1 Fraction of Inspired Oxygen 05/11/25 01:00 05/11/25 02:00 05/11/25 02:00 Temperature 98.3 F Pulse Rate 85 88 88 Respiratory Rate 23 H 20 Blood Pressure 147/89 H 167/95 H Pulse Oximetry 97 97 Oxygen Delivery Oxygen Flow Rate Fraction of Inspired Oxygen 05/11/25 03:00 05/11/25 04:00 05/11/25 04:00 Temperature 98.0 F Pulse Rate 83 74 Respiratory Rate 21 H 26 H Blood Pressure 169/92 H 165/88 H Pulse Oximetry 96 98 96 Oxygen Delivery Nasal Cannula Oxygen Flow Rate 1 Fraction of Inspired Oxygen 05/11/25 04:00 05/11/25 05:00 05/11/25 06:00 Temperature 98.1 F Pulse Rate 74 79 72 Respiratory Rate 24 H 19 Blood Pressure 148/99 H 141/85 H Pulse Oximetry 97 98 Oxygen Delivery Oxygen Flow Rate Fraction of Inspired Oxygen 05/11/25 06:00 05/11/25 07:00 05/11/25 08:00 Temperature Pulse Rate 72 73 73 Respiratory Rate 20 21 H Blood Pressure 142/96 H Pulse Oximetry 97 97 Oxygen Delivery Nasal Cannula Oxygen Flow Rate 1 Fraction of Inspired Oxygen 05/11/25 08:00 05/11/25 08:00 05/11/25 09:01 Temperature 98.7 F Pulse Rate 73 76 67 Respiratory Rate 17 Blood Pressure 158/97 H Pulse Oximetry 98 Oxygen Delivery Oxygen Flow Rate Fraction of Inspired Oxygen 05/11/25 09:54 05/11/25 10:00 05/11/25 12:00 Temperature Pulse Rate 70 70 Respiratory Rate 22 H Blood Pressure Pulse Oximetry 95 95 Oxygen Delivery Nasal Cannula Nasal Cannula Oxygen Flow Rate 1 1 Fraction of Inspired Oxygen 24 05/11/25 12:00 05/11/25 12:00 05/11/25 14:00 Temperature 98.8 F Pulse Rate 70 67 67 Respiratory Rate 22 H Blood Pressure 129/89 Pulse Oximetry Oxygen Delivery Oxygen Flow Rate Fraction of Inspired Oxygen 05/11/25 16:00 05/11/25 16:00 05/11/25 16:00 Temperature 98 F Pulse Rate 73 67 66 Respiratory Rate 19 19 Blood Pressure 110/81 Pulse Oximetry 96 96 Oxygen Delivery Nasal Cannula Oxygen Flow Rate 1 Fraction of Inspired Oxygen 24 Intake/Output Intake/Output: Intake & Output 05/08/25 05/09/25 05/10/25 05/11/25 23:59 23:59 23:59 23:59 Intake Total 2777.6 1641.5 100 Output Total 1350 950 850 Balance 1427.6 691.5 -750 Meds/Results Medications: Active Medications Generic Name Dose Route Start Last Admin Trade Name Freq PRN Reason Stop Dose Admin Carvedilol 3.125 mg 05/11/25 09:00 05/11/25 09:01 Carvedilol 3.125 Mg Tablet PO 3.125 mg Q12HR [facility] Administration Folic Acid 1 mg 05/11/25 09:00 05/11/25 09:02 Folic Acid 1 Mg Tablet PO 1 mg DAILY [facility] Administration Ceftriaxone Sodium 1 gm/ 50 mls @ 100 mls/hr 05/10/25 09:00 05/11/25 09:01 Sodium Chloride IVPB 100 mls/hr Q24H [facility] Administration Octreotide Acetate 500 mcg/ 100 mls @ 10 mls/hr 05/09/25 02:30 05/11/25 08:33 Sodium Chloride IV CONT 05/12/25 02:29 50 mcg/hr .Q10H [facility] 10 mls/hr 50 MCG/HR Administration Vancomycin HCl 1,500 mg in 500 mls @ 250 mls/hr 05/11/25 20:00 Vancomycin 1,500 Mg/Ns 500 Ml IVPB Q12H [facility] Lactulose 20 gm 05/11/25 09:00 05/11/25 09:02 Lactulose 20 Gm/30 Ml Udc BY MOUTH 20 gm BID [facility] Administration Pantoprazole Sodium 40 mg 05/10/25 09:00 05/11/25 09:02 Pantoprazole Sodium Iv 40 Mg Vial IV PUSH 40 mg QAM [facility] Administration Thiamine HCl 100 mg 05/11/25 09:00 05/11/25 09:02 Thiamine Hcl 100 Mg Tablet PO 100 mg QAM [facility] Administration Radiology Results: ITS Impressions Head CT 05/09/25 06:25 IMPRESSION: 1. No acute intracranial findings. Chest/Abdomen/Pelvis CTA 05/09/25 06:58 IMPRESSION: 1. No active hemorrhage. 2. Cirrhosis of the liver. 3. Wall thickening of the esophagus, consistent with edema versus esophagitis. 4. Umbilical hernia and bilateral inguinal hernias containing fat. Abdomen Ultrasound 05/09/25 16:35 IMPRESSION: 1. No evidence of gallstones. Bile ducts are normal in size. 2. Hepatomegaly with nodular liver and heterogeneous texture with cirrhosis. 3. Mildly dilated portal vein consistent with portal venous hypertension. There is no ascites. Chest X-Ray 05/10/25 08:18 Impression: CHF Abdomen X-Ray 05/10/25 12:44 IMPRESSION: 1. Nonobstructive bowel gas pattern with nasogastric tube tip in proximal side port in the body the stomach. 2. Bibasilar lung disease which could represent atelectasis or pneumonia. Labs Labs: Laboratory Results - last 24 hr 05/10/25 05/11/25 04:40 04:42 WBC 4.6 RBC 3.14 L Hgb 9.0 L Hct 28.0 L MCV 89.2 MCH 28.7 MCHC 32.1 RDW 16.4 H Plt Count 54 L MPV 9.5 % Immature Plt Fraction 1.9 Puncture Site Not Reportable O2 Delivery Device Not Reportable O2 Liters/Min Not Reportable Sodium 137 Potassium 3.6 Chloride 109 H Carbon Dioxide 26 Anion Gap 2 L BUN 20 Creatinine 0.83 Estim Creat Clear Calc 102 Estimated GFR > 60 Glucose 108 Calcium 7.6 L Phosphorus 3.0 Magnesium 1.9 Total Bilirubin 2.6 H AST 93 H ALT 20 Alkaline Phosphatase 133 H Ammonia 21 Total Protein 6.2 L Albumin 2.6 L
[2025-05-11 16:58] LABS: Triglycerides 166 mg/dL (<150)
[2025-05-11] MEDS: VANCOMYCIN 1,500 MG/NS 500 ML 1,500 MG/500 ML BAG 250 MG IVPB (20:17)
--- NOTE | 2025-05-11 20:18 | PC.NURSE ---
BP 104/67 HR 58 SB. Hold Coreg HS dose per Dr. Orozco
[2025-05-12] VITALS (17 sets, daily range): BP systolic 100–131; BP diastolic 66–82; PULSE 55–72; RESP 16–20; TEMP 36.3–36.8; O2SAT 95–100
[2025-05-12 04:24] LABS: Hematocrit 26.8 % (42.0-52.0); Hemoglobin 8.7 g/dL (14.0-18.0); Mean Corpuscular HGB Conc 32.5 g/dl (32-36); Mean Corpuscular Hemoglobin 29.4 pg (26-34); Mean Corpuscular Volume 90.5 fl (80-100); Platelet Count Result 53 k/mm3 (150-375); Red Blood Count 2.96 M/mm3 (4.6-6.20); White Blood Count 4.1 K/mm3 (4.5-10.0)
[2025-05-12 04:54] LABS: Alanine Aminotransferase 18 U/L (6-50); Albumin Level 2.4 g/dL (3.5-5.1); Alkaline Phosphatase 116 U/L (38-126); Anion Gap 0 mmol/L (4-12); Aspartate Amino Transferase 82 U/L (17-59); Bilirubin,Total 2.5 mg/dL (0.2-1.3); Blood Urea Nitrogen 16 mg/dL (9-20); Calcium 7.2 mg/dL (8.4-10.2); Carbon Dioxide 26 mmol/L (22-30); Chloride 108 mmol/L (98-107); Estimated CRCL calculation 98 ml/min; Estimated Glomerular Filt Rate > 60; Glucose 89 mg/dL (65-110); Magnesium 2.1 mg/dL (1.6-2.3); Potassium 3.5 mmol/L (3.4-5.0); Sodium 134 mmol/L (137-145); Total Protein 6.0 g/dL (6.3-8.2)
[2025-05-12] MEDS: IPRATROPIUM 0.5 MG/ALBUTEROL SULFATE 2.5 MG (BASE) AMPUL.NEB 3 ML INHALATION (08:30)
[2025-05-12 08:41] LABS: Ammonia 53 umol/L (9-30)
[2025-05-12] MEDS: POTASSIUM BICARBONATE 25 MEQ TABEF 50 MEQ PO (09:00)
[2025-05-12] MEDS: VANCOMYCIN 1,500 MG/NS 500 ML 1,500 MG/500 ML BAG 250 MG IVPB (09:00)
[2025-05-12] MEDS: CALCIUM/VITAMIN D 500 MG/5 MCG (200 I.U.) TABLET PO (09:00)
--- NOTE | 2025-05-12 09:07 | P.PNIM_ITS ---
Assessment and Plan Assessment and Plan (1) Hematemesis: Code(s): K92.0 - Hematemesis Status: Acute Assessment and Plan: 05/09: patient presented with hematemesis at home and multiple episodes in the ER - GI was called into the ER early this morning to scope the patient -05/09/2025: EGD done in the ER: Grade 3 varices, 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 status post 3 bands. Moderate gastritis in the stomach, portal hypertensive changes, no mucosal bleeding. Old blood noted in the fundus of the stomach. The bulb and the 2nd portion of duodenum was normal with no ulcers or masses. - patient completed octreotide infusion per GI for 72 hours -continue PPI changed to p.o.. -full liquid diet as per GI (2) GI (gastrointestinal bleed): Qualifiers: GI bleed type/associated pathology: unspecified gastrointestinal hemorrhage type Qualified Code(s): K92.2 - Gastrointestinal hemorrhage, unspecified Code(s): K92.2 - Gastrointestinal hemorrhage, unspecified Status: Acute Assessment and Plan: as above (3) Acute blood loss anemia: Code(s): D62 - Acute posthemorrhagic anemia Status: Acute Assessment and Plan: patient received 1 unit of packed RBCs - repeat hemoglobin has been stable Continue to monitor hemoglobin (4) Thrombocytopenia: Code(s): D69.6 - Thrombocytopenia, unspecified Status: Acute Assessment and Plan: Thrombocytopenia likely related to cirrhosis and now consumptive - normal bleeding noted, patient is hemodynamically stable - continue to monitor (5) Cirrhosis: Code(s): K74.60 - Unspecified cirrhosis of liver Status: Acute Assessment and Plan: cirrhosis likely related to alcohol use disorder -MELD score is 17 - GI following, and recommended right upper quadrant ultrasound -ammonia level improved. Continue lactulose but decrease dose to b.i.d. -monitor ammonia level (6) Alcohol use disorder: Code(s): F10.90 - Alcohol use, unspecified, uncomplicated Status: Acute Assessment and Plan: alcohol use disorder: Patient drinks 8 beers a day for 20 years according to records - will monitor for alcohol withdrawal/DTs -thiamine and folic acid (7) Elevated troponin: Code(s): R79.89 - Other specified abnormal findings of blood chemistry Status: Acute Assessment and Plan: troponin elevated likely related to GI bleed - repeat troponins have been trending down - unknown if patient complained of any chest pain (8) Acute respiratory failure: Code(s): J96.00 - Acute respiratory failure, unspecified whether with hypoxia or hypercapnia Status: Acute Assessment and Plan: Patient extubated on05/10 Now on nasal cannula Add incentive spirometry (9) Hypertension: Code(s): I10 - Essential (primary) hypertension Status: Acute Assessment and Plan: Continue Coreg (10) Electrolyte abnormality: Code(s): E87.8 - Other disorders of electrolyte and fluid balance, not elsewhere classified Status: Acute Assessment and Plan: Replace low potassium and calcium (11) Bacteremia: Code(s): R78.81 - Bacteremia Status: Acute Assessment and Plan: His blood culture 1 hour to a growing Gram-positive cocci. Identification is pending. Could be contaminant. Continue vanc and Rocephin until results are back Plan DVT prophylaxis: SCDs Stress ulcer prophylaxis: Protonix Nutrition: Full liquid diet Code Status: full code Transfer to [facility] today Consult PT OT Subjective Date/time seen: 05/12/25 Overnight events reviewed. Afebrile No objective signs of bleed Blood pressure improved Off octreotide Denies any new complaints. Otherwise signs other acceptable. Patient denies fever, chest pain, shortness of breath, cough, nausea vomiting, abdominal pain,, diarrhea, headache or constipation. All other systems were reviewed and negative Review of Systems Review of Systems: All systems reviewed & are unremarkable except as noted in HPI and below (HPI) Exam Narrative: General: Alert awake and in no acute distress HEENT:? pupils equal and reactive, sclera is clear, Neck:? some Respiratory:? clear to auscultation bilaterally, adequate air entry, no wheezing Cardiac:? S1-S2 normal, regular rate and rhythm Abdomen:? soft, nontender, nondistended, hypoactive bowel sounds Extremities:? no edema, palpable pedal pulses Neuro:? Alert awake, follows commands all 4 extremities, AO x 0 but able to carry conversation with his friends on FaceTime Skin:? no skin lesions noted Psych:? unable to assess at this time Objective Data Vital Signs Vital Signs: Vital Signs - 24 hr 05/11/25 09:54 05/11/25 10:00 05/11/25 12:00 Temperature Pulse Rate 70 70 Respiratory Rate 22 H Blood Pressure Pulse Oximetry 95 95 Oxygen Delivery Nasal Cannula Nasal Cannula Oxygen Flow Rate 1 1 Fraction of Inspired Oxygen 24 05/11/25 12:00 05/11/25 12:00 05/11/25 14:00 Temperature 37.1 C Pulse Rate 70 67 67 Respiratory Rate 22 H Blood Pressure 129/89 Pulse Oximetry Oxygen Delivery Oxygen Flow Rate Fraction of Inspired Oxygen 05/11/25 16:00 05/11/25 16:00 05/11/25 16:00 Temperature 36.6 C Pulse Rate 73 67 66 Respiratory Rate 19 19 Blood Pressure 110/81 Pulse Oximetry 96 96 Oxygen Delivery Nasal Cannula Oxygen Flow Rate 1 Fraction of Inspired Oxygen 24 05/11/25 18:00 05/11/25 20:00 05/11/25 20:00 Temperature Pulse Rate 65 58 L 66 Respiratory Rate 19 Blood Pressure Pulse Oximetry 96 Oxygen Delivery Nasal Cannula Oxygen Flow Rate 1 Fraction of Inspired Oxygen 05/11/25 20:14 05/11/25 20:18 05/11/25 22:00 Temperature 36.8 C Pulse Rate 58 L 58 L 63 Respiratory Rate 16 Blood Pressure 104/67 Pulse Oximetry 96 Oxygen Delivery Oxygen Flow Rate Fraction of Inspired Oxygen 05/11/25 23:51 05/12/25 00:00 05/12/25 00:00 Temperature Pulse Rate 63 60 61 Respiratory Rate 16 18 Blood Pressure 117/80 Pulse Oximetry 96 96 Oxygen Delivery Nasal Cannula Oxygen Flow Rate 1 Fraction of Inspired Oxygen 05/12/25 02:00 05/12/25 03:23 05/12/25 04:00 Temperature Pulse Rate 58 L 63 59 L Respiratory Rate 16 20 Blood Pressure 131/80 Pulse Oximetry 99 96 Oxygen Delivery Nasal Cannula Oxygen Flow Rate 1 Fraction of Inspired Oxygen 05/12/25 04:00 05/12/25 06:00 05/12/25 08:30 Temperature Pulse Rate 63 69 58 L Respiratory Rate 19 Blood Pressure Pulse Oximetry Oxygen Delivery Oxygen Flow Rate Fraction of Inspired Oxygen 05/12/25 08:34 05/12/25 08:39 Temperature Pulse Rate 60 Respiratory Rate 20 Blood Pressure Pulse Oximetry 96 Oxygen Delivery Nasal Cannula Oxygen Flow Rate 1 Fraction of Inspired Oxygen Intake/Output Intake/Output: Intake & Output 05/09/25 05/10/25 05/11/25 05/12/25 23:59 23:59 23:59 23:59 Intake Total 2777.6 1641.5 750 700.0 Output Total 6939 445 6636 650 Balance 1427.6 691.5 -1200 50.0 Meds/Results Medications: Active Medications Generic Name Dose Route Start Last Admin Trade Name Freq PRN Reason Stop Dose Admin Albuterol/Ipratropium 3 ml 05/12/25 08:07 05/12/25 08:30 Ipratropium 0.5 Mg/Albuterol Sulfate 2.5 Mg (Base) Ampul.Neb 3 Ml INHALATION 3 ml Q4HR PRN Administration Wheezing Calcium Carbonate 500 mg 05/12/25 08:00 Calcium/Vitamin D 500 Mg/5 Mcg (200 I.U.) Tablet PO DAILY@0800 RUBY Carvedilol 3.125 mg 05/11/25 09:00 05/11/25 20:18 Carvedilol 3.125 Mg Tablet PO Not Given Q12HR RUBY Folic Acid 1 mg 05/11/25 09:00 05/11/25 09:02 Folic Acid 1 Mg Tablet PO 1 mg DAILY RUBY Administration Ceftriaxone Sodium 1 gm/ 50 mls @ 100 mls/hr 05/10/25 09:00 05/11/25 09:31 Sodium Chloride IVPB Infused Q24H RUBY Infusion Vancomycin HCl 1,500 mg in 500 mls @ 250 mls/hr 05/11/25 20:00 05/11/25 22:17 Vancomycin 1,500 Mg/Ns 500 Ml IVPB Infused Q12H RUBY Infusion Lactulose 20 gm 05/11/25 09:00 05/11/25 17:22 Lactulose 20 Gm/30 Ml Udc BY MOUTH 20 gm BID RUBY Administration Pantoprazole Sodium 40 mg 05/10/25 09:00 05/11/25 09:02 Pantoprazole Sodium Iv 40 Mg Vial IV PUSH 40 mg QAM RUBY Administration Thiamine HCl 100 mg 05/11/25 09:00 05/11/25 09:02 Thiamine Hcl 100 Mg Tablet PO 100 mg QAM RUBY Administration Radiology Results: ITS Impressions Head CT 05/09/25 06:25 IMPRESSION: 1. No acute intracranial findings. Chest/Abdomen/Pelvis CTA 05/09/25 06:58 IMPRESSION: 1. No active hemorrhage. 2. Cirrhosis of the liver. 3. Wall thickening of the esophagus, consistent with edema versus esophagitis. 4. Umbilical hernia and bilateral inguinal hernias containing fat. Abdomen Ultrasound 12/08/25 16:35 IMPRESSION: 1. No evidence of gallstones. Bile ducts are normal in size. 2. Hepatomegaly with nodular liver and heterogeneous texture with cirrhosis. 3. Mildly dilated portal vein consistent with portal venous hypertension. There is no ascites. Chest X-Ray 05/10/25 08:18 Impression: CHF Abdomen X-Ray 05/10/25 12:44 IMPRESSION: 1. Nonobstructive bowel gas pattern with nasogastric tube tip in proximal side port in the body the stomach. 2. Bibasilar lung disease which could represent atelectasis or pneumonia. Labs Labs: Laboratory Results - last 24 hr 05/10/25 05/11/25 05/12/25 04:40 16:45 04:18 WBC 4.1 L RBC 2.96 L Hgb 8.7 L Hct 26.8 L MCV 90.5 MCH 29.4 MCHC 32.5 RDW 15.9 H Plt Count 53 L MPV 9.6 Puncture Site Not Reportable O2 Delivery Device Not Reportable O2 Liters/Min Not Reportable Sodium 134 L Potassium 3.5 Chloride 108 H Carbon Dioxide 26 Anion Gap 0 L BUN 16 Creatinine 0.76 Estim Creat Clear Calc 98 Estimated GFR > 60 Glucose 89 Calcium 7.2 L Phosphorus 2.8 Magnesium 2.1 Total Bilirubin 2.5 H AST 82 H ALT 18 Alkaline Phosphatase 116 Ammonia Total Protein 6.0 L Albumin 2.4 L Triglycerides 166 H 05/12/25 08:26 WBC RBC Hgb Hct MCV MCH MCHC RDW Plt Count MPV Puncture Site O2 Delivery Device O2 Liters/Min Sodium Potassium Chloride Carbon Dioxide Anion Gap BUN Creatinine Estim Creat Clear Calc Estimated GFR Glucose Calcium Phosphorus Magnesium Total Bilirubin AST ALT Alkaline Phosphatase Ammonia 53 H Total Protein Albumin Triglycerides Quality VTE Prophylaxis VTE prophylaxis: mechanical ordered
[2025-05-12 09:13] LABS: Free T4 Free Thyroxine 0.70 ng/dL (0.78-2.19)
[2025-05-12] MEDS: LACTULOSE 20 GM/30 ML UDC BY MOUTH ×2 (09:21→18:06)
[2025-05-12] MEDS: THIAMINE HCL 100 MG TABLET PO (09:22)
[2025-05-12] MEDS: cefTRIAXone 1 GM in SODIUM CHLORIDE 0.9% IV 50 ML 100 ML IVPB (09:22)
[2025-05-12] MEDS: FOLIC ACID 1 MG TABLET PO (09:22)
--- NOTE | 2025-05-12 18:07 | WPDGIPROGNO ---
Progress Note: A&P Assessment and Plan (1) Esophageal varices: Code(s): I85.00 - Esophageal varices without bleeding Status: Acute Assessment and Plan: this was cause of gib treated with ligation already completed iv octreotide still on antibiotics (also preliminary blood culture + staph ? contaminant) started on carvedilol as prophylaxis no more bleeding egd in 6 weeks to reassess varices before discharge will need carvedilol as prophylaxis (2) GI (gastrointestinal bleed): Qualifiers: GI bleed type/associated pathology: unspecified gastrointestinal hemorrhage type Qualified Code(s): K92.2 - Gastrointestinal hemorrhage, unspecified Code(s): K92.2 - Gastrointestinal hemorrhage, unspecified Status: Acute Assessment and Plan: no more episodes (3) Melena: Code(s): K92.1 - Melena Status: Acute (4) Acute blood loss anemia: Code(s): D62 - Acute posthemorrhagic anemia Status: Acute Assessment and Plan: continue to monitor h/h (5) Liver encephalopathy: Code(s): K76.82 - Hepatic encephalopathy Status: Acute Assessment and Plan: started lactulose he is awake and oriented (6) Thrombocytopenia: Code(s): D69.6 - Thrombocytopenia, unspecified Status: Acute Assessment and Plan: from cirrhosis (7) Cirrhosis, alcoholic: Code(s): K70.30 - Alcoholic cirrhosis of liver without ascites Status: Acute Assessment and Plan: this is new diagnosis thiamine will need follow-up in office (8) Hematemesis: Code(s): K92.0 - Hematemesis Status: Acute Assessment and Plan: no more episodes (9) Non-ST elevation AL (NSTEMI): Code(s): I21.4 - Non-ST elevation (NSTEMI) myocardial infarction Status: Acute Subjective Date/time seen: 05/12/25 18:07 Interval history: no episodes of gib he is talking and participating in conversation, c/o diarrhea (taking lactulose) partner at bedside Review of Systems Review of Systems: All systems reviewed & are unremarkable except as noted in HPI and below Exam Const: General: comfortable and no acute distress HENMT: Face/Nose/Sinus: Normal nares present Eyes: General: appearance normal, both eyes and all related structures Neck: Neck: supple Resp: Auscultation: clear to auscultation bilaterally Cardio: Rate: regular rate Rhythm: regular rhythm GI: Inspection: non-distended GI Palp: Yes Soft to palpation and No Tenderness to palpation present (GI) Skin: Wounds: no wounds Neuro: Speech: normal speech Extrem: General: normal to inspection Psych: Mental Status: mental status grossly normal Objective Data Vital Signs Vital Signs: Vital Signs - 24 hr 05/11/25 20:00 05/11/25 20:00 05/11/25 20:14 Temperature 98.3 F Pulse Rate 58 L 66 58 L Respiratory Rate 19 16 Blood Pressure 104/67 Pulse Oximetry 96 96 Oxygen Delivery Nasal Cannula Oxygen Flow Rate 1 05/11/25 20:18 05/11/25 22:00 05/11/25 23:51 Temperature Pulse Rate 58 L 63 63 Respiratory Rate 16 Blood Pressure Pulse Oximetry 96 Oxygen Delivery Nasal Cannula Oxygen Flow Rate 1 05/12/25 00:00 05/12/25 00:00 05/12/25 02:00 Temperature Pulse Rate 60 61 58 L Respiratory Rate 18 Blood Pressure 117/80 Pulse Oximetry 96 Oxygen Delivery Oxygen Flow Rate 05/12/25 03:23 05/12/25 04:00 05/12/25 04:00 Temperature Pulse Rate 63 59 L 63 Respiratory Rate 16 20 Blood Pressure 131/80 Pulse Oximetry 99 96 Oxygen Delivery Nasal Cannula Oxygen Flow Rate 1 05/12/25 06:00 05/12/25 08:00 05/12/25 08:00 Temperature 98.2 F Pulse Rate 69 59 L Respiratory Rate 20 Blood Pressure 116/78 Pulse Oximetry 98 96 Oxygen Delivery Nasal Cannula Oxygen Flow Rate 1 05/12/25 08:00 05/12/25 08:30 05/12/25 08:34 Temperature Pulse Rate 72 58 L Respiratory Rate 19 Blood Pressure Pulse Oximetry 96 Oxygen Delivery Nasal Cannula Oxygen Flow Rate 1 05/12/25 08:39 05/12/25 09:22 05/12/25 10:00 Temperature Pulse Rate 60 65 64 Respiratory Rate 20 Blood Pressure Pulse Oximetry Oxygen Delivery Oxygen Flow Rate 05/12/25 12:00 05/12/25 12:00 05/12/25 16:00 Temperature 98.1 F 98 F Pulse Rate 55 L 55 L 64 Respiratory Rate 16 20 Blood Pressure 124/82 100/66 Pulse Oximetry 95 98 Oxygen Delivery Oxygen Flow Rate Intake/Output Intake/Output: Intake & Output 05/09/25 05/10/25 05/11/25 05/12/25 23:59 23:59 23:59 23:59 Intake Total 2777.6 1641.5 750 2450.0 Output Total 7102 533 3629 2100 Balance 1427.6 691.5 -1200 350.0 Meds/Results Medications: Active Medications Generic Name Dose Route Start Last Admin Trade Name Freq PRN Reason Stop Dose Admin Albuterol/Ipratropium 3 ml 05/12/25 08:07 05/12/25 08:30 Ipratropium 0.5 Mg/Albuterol Sulfate 2.5 Mg (Base) Ampul.Neb 3 Ml INHALATION 3 ml Q4HR PRN Administration Wheezing Calcium Carbonate 500 mg 05/12/25 08:00 05/12/25 09:00 Calcium/Vitamin D 500 Mg/5 Mcg (200 I.U.) Tablet PO 500 mg DAILY@0800 RUBY Administration Carvedilol 3.125 mg 05/11/25 09:00 05/12/25 09:22 Carvedilol 3.125 Mg Tablet PO 3.125 mg Q12HR RUBY Administration Folic Acid 1 mg 05/11/25 09:00 05/12/25 09:22 Folic Acid 1 Mg Tablet PO 1 mg DAILY RUBY Administration Ceftriaxone Sodium 1 gm/ 50 mls @ 100 mls/hr 05/10/25 09:00 05/12/25 09:52 Sodium Chloride IVPB Infused Q24H RUBY Infusion Vancomycin HCl 1,500 mg in 500 mls @ 250 mls/hr 05/11/25 20:00 05/12/25 11:00 Vancomycin 1,500 Mg/Ns 500 Ml IVPB Infused Q12H RUBY Infusion Lactulose 20 gm 05/11/25 09:00 05/12/25 18:06 Lactulose 20 Gm/30 Ml Udc BY MOUTH 20 gm BID RUBY Administration Pantoprazole Sodium 40 mg 05/12/25 21:00 Pantoprazole 40 Mg Tablet PO Q12HR RUBY Thiamine HCl 100 mg 05/11/25 09:00 05/12/25 09:22 Thiamine Hcl 100 Mg Tablet PO 100 mg QAM RUBY Administration Radiology Results: ITS Impressions Head CT 05/09/25 06:25 IMPRESSION: 1. No acute intracranial findings. Chest/Abdomen/Pelvis CTA 05/09/25 06:58 IMPRESSION: 1. No active hemorrhage. 2. Cirrhosis of the liver. 3. Wall thickening of the esophagus, consistent with edema versus esophagitis. 4. Umbilical hernia and bilateral inguinal hernias containing fat. Abdomen Ultrasound 05/09/25 16:35 IMPRESSION: 1. No evidence of gallstones. Bile ducts are normal in size. 2. Hepatomegaly with nodular liver and heterogeneous texture with cirrhosis. 3. Mildly dilated portal vein consistent with portal venous hypertension. There is no ascites. Chest X-Ray 05/10/25 08:18 Impression: CHF Abdomen X-Ray 05/10/25 12:44 IMPRESSION: 1. Nonobstructive bowel gas pattern with nasogastric tube tip in proximal side port in the body the stomach. 2. Bibasilar lung disease which could represent atelectasis or pneumonia. Labs Labs: Laboratory Results - last 24 hr 05/12/25 05/12/25 04:18 08:26 WBC 4.1 L RBC 2.96 L Hgb 8.7 L Hct 26.8 L MCV 90.5 MCH 29.4 MCHC 32.5 RDW 15.9 H Plt Count 53 L MPV 9.6 Sodium 134 L Potassium 3.5 Chloride 108 H Carbon Dioxide 26 Anion Gap 0 L BUN 16 Creatinine 0.76 Estim Creat Clear Calc 98 Estimated GFR > 60 Glucose 89 Calcium 7.2 L Phosphorus 2.8 Magnesium 2.1 Total Bilirubin 2.5 H AST 82 H ALT 18 Alkaline Phosphatase 116 Ammonia 53 H Total Protein 6.0 L Albumin 2.4 L Free T4 0.70 L
--- NOTE | 2025-05-12 18:56 | PC.NURSE ---
This patient, Nestor Vieira, was received from ICU on 05/12/25 at 1856. Patient/family oriented to unit policies and routines
[2025-05-12] MEDS: PANTOPRAZOLE 40 MG TABLET PO (20:14)
[2025-05-12] MEDS: traMADol HCL (*CRX) 25 MG TABLET PO (20:56)
[2025-05-12] MEDS: VANCOMYCIN 2,000 MG/NS 500 ML 2,000 MG/500 ML BAG 250 MG IVPB (23:48)
[2025-05-13] VITALS (11 sets, daily range): BP systolic 109–118; BP diastolic 58–74; PULSE 55–72; RESP 18–20; TEMP 36.4–36.7; O2SAT 95–98
[2025-05-13 04:58] LABS: Hematocrit 26.4 % (42.0-52.0); Hemoglobin 8.5 g/dL (14.0-18.0); Immature Platelet Fraction Pct 2.2 % (0.9-11.2); Mean Corpuscular HGB Conc 32.2 g/dl (32-36); Mean Corpuscular Hemoglobin 29.6 pg (26-34); Mean Corpuscular Volume 92.0 fl (80-100); Platelet Count Result 79 k/mm3 (150-375); Red Blood Count 2.87 M/mm3 (4.6-6.20); White Blood Count 3.9 K/mm3 (4.5-10.0)
[2025-05-13 05:18] LABS: Alanine Aminotransferase 15 U/L (6-50); Albumin Level 2.4 g/dL (3.5-5.1); Alkaline Phosphatase 147 U/L (38-126); Anion Gap -2 mmol/L (4-12); Aspartate Amino Transferase 73 U/L (17-59); Bilirubin,Total 1.1 mg/dL (0.2-1.3); Blood Urea Nitrogen 12 mg/dL (9-20); Calcium 7.3 mg/dL (8.4-10.2); Carbon Dioxide 30 mmol/L (22-30); Chloride 106 mmol/L (98-107); Estimated CRCL calculation 88 ml/min; Estimated Glomerular Filt Rate > 60; Glucose 94 mg/dL (65-110); Magnesium 2.1 mg/dL (1.6-2.3); Potassium 3.6 mmol/L (3.4-5.0); Sodium 134 mmol/L (137-145); Total Protein 5.8 g/dL (6.3-8.2)
[2025-05-13 07:09] LABS: Triiodothyronine (T3), Free 1.0 pg/mL (2.0-4.4)
[2025-05-13] MEDS: cefTRIAXone 1 GM in SODIUM CHLORIDE 0.9% IV 50 ML 100 ML IVPB (08:23)
[2025-05-13] MEDS: LACTULOSE 20 GM/30 ML UDC BY MOUTH ×2 (08:23→16:38)
[2025-05-13] MEDS: CALCIUM/VITAMIN D 500 MG/5 MCG (200 I.U.) TABLET PO (08:23)
[2025-05-13] MEDS: PANTOPRAZOLE 40 MG TABLET PO ×2 (08:23→22:01)
[2025-05-13] MEDS: FOLIC ACID 1 MG TABLET PO (08:23)
[2025-05-13] MEDS: THIAMINE HCL 100 MG TABLET PO (08:23)
[2025-05-13] MEDS: traMADol HCL (*CRX) 25 MG TABLET PO ×3 (08:24→22:01)
--- NOTE | 2025-05-13 10:29 | PM.IMPN2 ---
Assessment and Plan Assessment and Plan (1) Hematemesis: Code(s): K92.0 - Hematemesis Status: Acute Assessment and Plan: 05/09: patient presented with hematemesis at home and multiple episodes in the ER - GI was called into the ER early this morning to scope the patient -05/09/2025: EGD done in the ER: Grade 3 varices, 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 status post 3 bands. Moderate gastritis in the stomach, portal hypertensive changes, no mucosal bleeding. Old blood noted in the fundus of the stomach. The bulb and the 2nd portion of duodenum was normal with no ulcers or masses. - patient completed octreotide infusion per GI for 72 hours -continue PPI changed to p.o.. -regular diet today, appears to be tolerating thus far -AM labs (2) GI (gastrointestinal bleed): Qualifiers: GI bleed type/associated pathology: unspecified gastrointestinal hemorrhage type Qualified Code(s): K92.2 - Gastrointestinal hemorrhage, unspecified Code(s): K92.2 - Gastrointestinal hemorrhage, unspecified Status: Acute Assessment and Plan: as above (3) Acute blood loss anemia: Code(s): D62 - Acute posthemorrhagic anemia Status: Acute Assessment and Plan: patient received 1 unit of packed RBCs - repeat hemoglobin has been stable Continue to monitor hemoglobin -AM labs (4) Thrombocytopenia: Code(s): D69.6 - Thrombocytopenia, unspecified Status: Acute Assessment and Plan: Thrombocytopenia likely related to cirrhosis and now consumptive - normal bleeding noted, patient is hemodynamically stable - continue to monitor (5) Cirrhosis: Code(s): K74.60 - Unspecified cirrhosis of liver Status: Acute Assessment and Plan: cirrhosis likely related to alcohol use disorder -MELD score is 17 - GI following, and recommended right upper quadrant ultrasound -ammonia level improved. Continue lactulose but decrease dose to b.i.d. -monitor ammonia level -discussed need for patient to abstain from alcohol after discharge -discussed need for patient to establish with a PCP and auto service representative upon return to [place] (6) Alcohol use disorder: Code(s): F10.90 - Alcohol use, unspecified, uncomplicated Status: Acute Assessment and Plan: alcohol use disorder: Patient drinks 8 beers a day for 20 years according to records - will monitor for alcohol withdrawal/DTs -thiamine and folic acid -discussed with patient and family that patient needs to abstain from alcohol on discharge -no signs of withdrawal currently (7) Elevated troponin: Code(s): R79.89 - Other specified abnormal findings of blood chemistry Status: Acute Assessment and Plan: troponin elevated likely related to GI bleed - repeat troponins have been trending down - unknown if patient complained of any chest pain (8) Acute respiratory failure: Code(s): J96.00 - Acute respiratory failure, unspecified whether with hypoxia or hypercapnia Status: Acute Assessment and Plan: Patient extubated on05/10 Now on room air Add incentive spirometry (9) Hypertension: Code(s): I10 - Essential (primary) hypertension Status: Acute Assessment and Plan: Continue Coreg (10) Electrolyte abnormality: Code(s): E87.8 - Other disorders of electrolyte and fluid balance, not elsewhere classified Status: Acute Assessment and Plan: Replace low potassium and calcium (11) Bacteremia: Code(s): R78.81 - Bacteremia Status: Acute Assessment and Plan: His blood culture 1 hour to a growing Gram-positive cocci. Identification is pending. Could be contaminant. Continue vanc and Rocephin until results are back repeat blood cultures ordered discussed with ID pharmacist, since only one bottle is positive appears to be a contaminant stop IV vancomycin continue IV ceftriaxone for SBP prevention and will transition to PO bactrim Subjective Date/time seen: 05/13/25 10:29 Interval history: Patient seen for follow up visit. Patient lying in bed, in no acute distress. Patient with complaints of throat pain/discomfort, ordered Cepacol throat spray that patient can keep at the bedside. No signs of acute bleeding. Blood cultures ordered, will also d/c IV vancomycin as 1 positive bottle most likely represents a contaminant and not bacteremia. Continue IV ceftriaxone and plan to switch to PO antibiotics on discharge. Patient tolerating regular diet today. Patient continues on CIWA protocol with no signs of withdrawal at this time. I had a long discussion with patient's son and daughter in law regarding his hospital course and discharge plan. [place] out of state and will go home on discharge. Patient will need to establish care with a PCP and a auto service representative upon return to [place]. Nurse is going to print off some information related to GI bleeds and liver cirrhosis to give to patient and family. PT/OT to work with patient to determine if there are any needs on discharge. I encouraged patient to be out of bed to chair and ambulate with assistance. Review of Systems Review of Systems: All systems reviewed & are unremarkable except as noted in HPI and below (HPI) Exam Narrative: General: Alert awake and in no acute distress HEENT:? pupils equal and reactive, sclera is clear, Neck:? some Respiratory:? clear to auscultation bilaterally, adequate air entry, no wheezing Cardiac:? S1-S2 normal, regular rate and rhythm Abdomen:? soft, nontender, nondistended, hypoactive bowel sounds Extremities:? no edema, palpable pedal pulses Neuro:? Alert awake, follows commands all 4 extremities, AO x 0 but able to carry conversation with his friends on FaceTime Skin:? no skin lesions noted Psych:? unable to assess at this time Objective Data Vital Signs Vital Signs: Vital Signs - 24 hr 05/12/25 12:00 05/12/25 12:00 05/12/25 16:00 Temperature 98.1 F 98 F Pulse Rate 55 L 55 L 64 Respiratory Rate 16 20 Blood Pressure 124/82 100/66 Pulse Oximetry 95 98 Oxygen Delivery Fraction of Inspired Oxygen 05/12/25 16:00 05/12/25 19:50 05/12/25 20:00 Temperature 97.4 F L Pulse Rate 64 64 60 Respiratory Rate 20 20 Blood Pressure 119/73 Pulse Oximetry 98 97 Oxygen Delivery Room Air Fraction of Inspired Oxygen 05/12/25 20:00 05/12/25 21:32 05/12/25 23:46 Temperature 97.5 F L Pulse Rate 60 57 L Respiratory Rate 20 Blood Pressure 101/76 Pulse Oximetry 98 100 Oxygen Delivery Room Air Fraction of Inspired Oxygen 05/13/25 00:00 05/13/25 04:00 05/13/25 04:00 Temperature 97.6 F Pulse Rate 57 L 61 59 L Respiratory Rate 20 Blood Pressure 118/66 Pulse Oximetry 95 Oxygen Delivery Fraction of Inspired Oxygen 05/13/25 08:24 05/13/25 08:44 05/13/25 08:56 Temperature Pulse Rate 59 L Respiratory Rate Blood Pressure Pulse Oximetry Oxygen Delivery Room Air Room Air Fraction of Inspired Oxygen Intake/Output Intake/Output: Intake & Output 05/10/25 05/11/25 05/12/25 05/13/25 23:59 23:59 23:59 23:59 Intake Total 1641.5 750 2450.0 400 Output Total 950 1950 2100 Balance 691.5 -1200 350.0 400 Meds/Results Medications: Active Medications Generic Name Dose Route Start Last Admin Trade Name Freq PRN Reason Stop Dose Admin Albuterol/Ipratropium 3 ml 05/12/25 08:07 05/12/25 08:30 Ipratropium 0.5 Mg/Albuterol Sulfate 2.5 Mg (Base) Ampul.Neb 3 Ml INHALATION 3 ml Q4HR PRN Administration Wheezing Calcium Carbonate 500 mg 05/12/25 08:00 05/13/25 08:23 Calcium/Vitamin D 500 Mg/5 Mcg (200 I.U.) Tablet PO 500 mg DAILY@0800 RUBY Administration Carvedilol 3.125 mg 05/11/25 09:00 05/13/25 08:24 Carvedilol 3.125 Mg Tablet PO 3.125 mg Q12HR RUBY Administration Folic Acid 1 mg 05/11/25 09:00 05/13/25 08:23 Folic Acid 1 Mg Tablet PO 1 mg DAILY RUBY Administration Ceftriaxone Sodium 1 gm/ 50 mls @ 100 mls/hr 05/10/25 09:00 05/13/25 08:23 Sodium Chloride IVPB 100 mls/hr Q24H RUBY Administration Vancomycin HCl 2,000 mg in 500 mls @ 250 mls/hr 05/13/25 12:00 Vancomycin 2,000 Mg/Ns 500 Ml IVPB Q12H RUBY Lactulose 20 gm 05/11/25 09:00 05/13/25 08:23 Lactulose 20 Gm/30 Ml Udc BY MOUTH 20 gm BID RUBY Administration Pantoprazole Sodium 40 mg 05/12/25 21:00 05/13/25 08:23 Pantoprazole 40 Mg Tablet PO 40 mg Q12HR RUBY Administration Thiamine HCl 100 mg 05/11/25 09:00 05/13/25 08:23 Thiamine Hcl 100 Mg Tablet PO 100 mg QAM RUBY Administration Tramadol HCl 25 mg 05/12/25 20:48 05/13/25 08:24 Tramadol Hcl (*Crx) 25 Mg Tablet PO 25 mg Q4H PRN Administration Pain Rated 4-6 Radiology Results: ITS Impressions Head CT 05/09/25 06:25 IMPRESSION: 1. No acute intracranial findings. Chest/Abdomen/Pelvis CTA 05/09/25 06:58 IMPRESSION: 1. No active hemorrhage. 2. Cirrhosis of the liver. 3. Wall thickening of the esophagus, consistent with edema versus esophagitis. 4. Umbilical hernia and bilateral inguinal hernias containing fat. Abdomen Ultrasound 05/09/25 16:35 IMPRESSION: 1. No evidence of gallstones. Bile ducts are normal in size. 2. Hepatomegaly with nodular liver and heterogeneous texture with cirrhosis. 3. Mildly dilated portal vein consistent with portal venous hypertension. There is no ascites. Chest X-Ray 05/10/25 08:18 Impression: CHF Abdomen X-Ray 05/10/25 12:44 IMPRESSION: 1. Nonobstructive bowel gas pattern with nasogastric tube tip in proximal side port in the body the stomach. 2. Bibasilar lung disease which could represent atelectasis or pneumonia. Labs Labs: Laboratory Results - last 24 hr 05/12/25 05/12/25 05/13/25 08:26 19:01 04:14 WBC 3.9 L RBC 2.87 L Hgb 8.5 L Hct 26.4 L MCV 92.0 MCH 29.6 MCHC 32.2 RDW 15.7 H Plt Count 79 L MPV 9.8 % Immature Plt Fraction 2.2 Sodium 134 L Potassium 3.6 Chloride 106 Carbon Dioxide 30 Anion Gap -2 L BUN 12 Creatinine 0.85 Estim Creat Clear Calc 88 Estimated GFR > 60 Glucose 94 Calcium 7.3 L Phosphorus 2.7 Magnesium 2.1 Total Bilirubin 1.1 AST 73 H ALT 15 Alkaline Phosphatase 147 H Total Protein 5.8 L Albumin 2.4 L Free T3 pg/mL 1.0 L Vancomycin Trough 11.5 Quality VTE Prophylaxis VTE prophylaxis: mechanical ordered
[2025-05-13] MEDS: PHENOL/SOD PHENO SPRAY CHERRY (*BKC) 1 SPRAY MUCOUS MEM ×2 (11:18→16:38)
[2025-05-13] MEDS: VANCOMYCIN 2,000 MG/NS 500 ML 2,000 MG/500 ML BAG 250 MG IVPB (12:22)
[2025-05-13 16:47] LABS: Triglycerides 207 mg/dL (<150)
--- NOTE | 2025-05-13 16:47 | P.PNGI_ITS ---
Progress Note: A&P Assessment and Plan (1) Esophageal varices: Code(s): I85.00 - Esophageal varices without bleeding Status: Acute Assessment and Plan: this was cause of gib treated with ligation and already completed iv octreotide he is on antibiotics as well started on carvedilol as prophylaxis no more bleeding egd in 6 weeks to reassess varices (2) GI (gastrointestinal bleed): Qualifiers: GI bleed type/associated pathology: unspecified gastrointestinal hemorrhage type Qualified Code(s): K92.2 - Gastrointestinal hemorrhage, unspecified Code(s): K92.2 - Gastrointestinal hemorrhage, unspecified Status: Acute Assessment and Plan: no more episodes (3) Melena: Code(s): K92.1 - Melena Status: Acute (4) Acute blood loss anemia: Code(s): D62 - Acute posthemorrhagic anemia Status: Acute Assessment and Plan: h/h relatively stable, no more bleeding since presentation (5) Liver encephalopathy: Code(s): K76.82 - Hepatic encephalopathy Status: Acute Assessment and Plan: started lactulose he is awake and oriented (6) Thrombocytopenia: Code(s): D69.6 - Thrombocytopenia, unspecified Status: Acute Assessment and Plan: from cirrhosis (7) Cirrhosis, alcoholic: Code(s): K70.30 - Alcoholic cirrhosis of liver without ascites Status: Acute Assessment and Plan: this is new diagnosis thiamine will need follow-up in office (8) Hematemesis: Code(s): K92.0 - Hematemesis Status: Acute Assessment and Plan: no more episodes Subjective Date/time seen: 05/13/25 16:47 Interval history: he took a walk to restroom for the first time today and slowly feeling better and eating more partner at bedside he is looking better Review of Systems Review of Systems: All systems reviewed & are unremarkable except as noted in HPI and below Exam Const: General: comfortable and no acute distress HENMT: Face/Nose/Sinus: Normal nares present Eyes: General: appearance normal, both eyes and all related structures Neck: Neck: supple Resp: Auscultation: clear to auscultation bilaterally Cardio: Rate: regular rate Rhythm: regular rhythm GI: Inspection: non-distended GI Palp: Yes Soft to palpation and No Tenderness to palpation present (GI) Skin: Wounds: no wounds Neuro: Speech: normal speech Extrem: General: normal to inspection Psych: Mental Status: mental status grossly normal Objective Data Vital Signs Vital Signs: Vital Signs - 24 hr 05/12/25 19:50 05/12/25 20:00 05/12/25 20:00 Temperature 97.4 F L Pulse Rate 64 60 60 Respiratory Rate 20 20 Blood Pressure 119/73 Pulse Oximetry 98 97 Oxygen Delivery Room Air Fraction of Inspired Oxygen 24 05/12/25 21:32 05/12/25 23:46 05/13/25 00:00 Temperature 97.5 F L Pulse Rate 57 L 57 L Respiratory Rate 20 Blood Pressure 101/76 Pulse Oximetry 98 100 Oxygen Delivery Room Air Fraction of Inspired Oxygen 05/13/25 04:00 05/13/25 04:00 05/13/25 08:00 Temperature 97.6 F Pulse Rate 61 59 L 64 Respiratory Rate 20 Blood Pressure 118/66 Pulse Oximetry 95 Oxygen Delivery Fraction of Inspired Oxygen 05/13/25 08:00 05/13/25 08:20 05/13/25 08:24 Temperature Pulse Rate 72 59 L Respiratory Rate 20 Blood Pressure 109/66 Pulse Oximetry 98 Oxygen Delivery Room Air Fraction of Inspired Oxygen 05/13/25 08:44 05/13/25 08:56 05/13/25 09:00 Temperature Pulse Rate Respiratory Rate Blood Pressure Pulse Oximetry 96 Oxygen Delivery Room Air Room Air Room Air Fraction of Inspired Oxygen 05/13/25 12:00 05/13/25 12:00 05/13/25 16:00 Temperature 98.0 F 98.1 F Pulse Rate 58 L 59 L 56 L Respiratory Rate 18 20 Blood Pressure 113/74 116/58 L Pulse Oximetry 98 97 Oxygen Delivery Fraction of Inspired Oxygen Intake/Output Intake/Output: Intake & Output 05/10/25 05/11/25 05/12/25 05/13/25 23:59 23:59 23:59 23:59 Intake Total 1641.5 750 2450.0 400 Output Total 950 1950 2100 Balance 691.5 -1200 350.0 400 Meds/Results Medications: Active Medications Generic Name Dose Route Start Last Admin Trade Name Freq PRN Reason Stop Dose Admin Albuterol/Ipratropium 3 ml 05/12/25 08:07 05/12/25 08:30 Ipratropium 0.5 Mg/Albuterol Sulfate 2.5 Mg (Base) Ampul.Neb 3 Ml INHALATION 3 ml Q4HR PRN Administration Wheezing Calcium Carbonate 500 mg 05/12/25 08:00 05/13/25 08:23 Calcium/Vitamin D 500 Mg/5 Mcg (200 I.U.) Tablet PO 500 mg DAILY@0800 [facility] Administration Carvedilol 3.125 mg 05/11/25 09:00 05/13/25 08:24 Carvedilol 3.125 Mg Tablet PO 3.125 mg Q12HR RUBY Administration Folic Acid 1 mg 05/11/25 09:00 05/13/25 08:23 Folic Acid 1 Mg Tablet PO 1 mg DAILY [facility] Administration Lactulose 20 gm 05/11/25 09:00 05/13/25 16:38 Lactulose 20 Gm/30 Ml Udc BY MOUTH 20 gm BID [facility] Administration Pantoprazole Sodium 40 mg 05/12/25 21:00 05/13/25 08:23 Pantoprazole 40 Mg Tablet PO 40 mg Q12HR RUBY Administration Phenol 1 spray 05/13/25 10:49 05/13/25 16:38 Phenol/Sod Pheno [place] Landry (*Bkc) MUCOUS MEM 1 spray PRN PRN Administration Sore Throat Thiamine HCl 100 mg 05/11/25 09:00 05/13/25 08:23 Thiamine Hcl 100 Mg Tablet PO 100 mg QAM [facility] Administration Tramadol HCl 25 mg 05/12/25 20:48 05/13/25 16:38 Tramadol Hcl (*Crx) 25 Mg Tablet PO 25 mg Q4H PRN Administration Pain Rated 4-6 Trimethoprim/Sulfamethoxazole 1 tab 05/14/25 09:00 Sulfamethoxazole/Trimethoprim 800/160 Mg Ds Tablet PO 05/15/25 21:01 Q12HR [facility] Radiology Results: ITS Impressions Head CT 05/09/25 06:25 IMPRESSION: 1. No acute intracranial findings. Chest/Abdomen/Pelvis CTA 05/09/25 06:58 IMPRESSION: 1. No active hemorrhage. 2. Cirrhosis of the liver. 3. Wall thickening of the esophagus, consistent with edema versus esophagitis. 4. Umbilical hernia and bilateral inguinal hernias containing fat. Abdomen Ultrasound 05/09/25 16:35 IMPRESSION: 1. No evidence of gallstones. Bile ducts are normal in size. 2. Hepatomegaly with nodular liver and heterogeneous texture with cirrhosis. 3. Mildly dilated portal vein consistent with portal venous hypertension. There is no ascites. Chest X-Ray 05/10/25 08:18 Impression: CHF Abdomen X-Ray 05/10/25 12:44 IMPRESSION: 1. Nonobstructive bowel gas pattern with nasogastric tube tip in proximal side port in the body the stomach. 2. Bibasilar lung disease which could represent atelectasis or pneumonia. Labs Labs: Laboratory Results - last 24 hr 05/12/25 05/12/25 05/13/25 08:26 19:01 04:14 WBC 3.9 L RBC 2.87 L Hgb 8.5 L Hct 26.4 L MCV 92.0 MCH 29.6 MCHC 32.2 RDW 15.7 H Plt Count 79 L MPV 9.8 % Immature Plt Fraction 2.2 Sodium 134 L Potassium 3.6 Chloride 106 Carbon Dioxide 30 Anion Gap -2 L BUN 12 Creatinine 0.85 Estim Creat Clear Calc 88 Estimated GFR > 60 Glucose 94 Calcium 7.3 L Phosphorus 2.7 Magnesium 2.1 Total Bilirubin 1.1 AST 73 H ALT 15 Alkaline Phosphatase 147 H Total Protein 5.8 L Albumin 2.4 L Free T3 pg/mL 1.0 L Vancomycin Trough 11.5
--- NOTE | 2025-05-13 22:08 | PC.NURSE ---
No output documented for 05/13, pt states voiding 3 times today. x3 voids entered for unmeasured urine for daytime output.
[2025-05-14] VITALS (11 sets, daily range): BP systolic 102–138; BP diastolic 50–71; PULSE 49–67; RESP 14–20; TEMP 36.2–37; O2SAT 96–100
[2025-05-14] MEDS: traMADol HCL (*CRX) 25 MG TABLET PO ×2 (04:33→18:00)
[2025-05-14 06:03] LABS: Hematocrit 26.0 % (42.0-52.0); Hemoglobin 8.3 g/dL (14.0-18.0); Immature Platelet Fraction Pct 2.5 % (0.9-11.2); Mean Corpuscular HGB Conc 31.9 g/dl (32-36); Mean Corpuscular Hemoglobin 29.4 pg (26-34); Mean Corpuscular Volume 92.2 fl (80-100); Platelet Count Result 93 k/mm3 (150-375); Red Blood Count 2.82 M/mm3 (4.6-6.20); White Blood Count 4.9 K/mm3 (4.5-10.0)
[2025-05-14 06:19] LABS: Alanine Aminotransferase 13 U/L (6-50); Albumin Level 2.3 g/dL (3.5-5.1); Alkaline Phosphatase 154 U/L (38-126); Anion Gap 0 mmol/L (4-12); Aspartate Amino Transferase 56 U/L (17-59); Bilirubin,Total 0.9 mg/dL (0.2-1.3); Blood Urea Nitrogen 11 mg/dL (9-20); Calcium 7.4 mg/dL (8.4-10.2); Carbon Dioxide 29 mmol/L (22-30); Chloride 103 mmol/L (98-107); Estimated CRCL calculation 100 ml/min; Estimated Glomerular Filt Rate > 60; Glucose 77 mg/dL (65-110); Magnesium 2.1 mg/dL (1.6-2.3); Potassium 3.5 mmol/L (3.4-5.0); Sodium 132 mmol/L (137-145); Total Protein 5.6 g/dL (6.3-8.2)
--- NOTE | 2025-05-14 07:14 | P.PNGI_ITS ---
Progress Note: A&P Assessment and Plan (1) Cirrhosis, alcoholic: Code(s): K70.30 - Alcoholic cirrhosis of liver without ascites Status: Acute Assessment and Plan: Patient recovered from significant variceal bleeding. Carvedilol was initiated at 3.125 mg b.i.d. and can be safely increased to 6.25 mg b.i.d. for secondary prophylaxis of variceal bleeding and hepatoprotection. A second session of variceal banding is required in 4 to 6 weeks. There is no ongoing indication for PPIs. Given the patient lives 5 hours away in [place] and is here only for temporary work, he should be discharged with a detailed summary of his hospital stay to ensure continuity of care. We would be pleased to follow up with him in our GI clinic if he desires to travel back. Complete alcohol abstinence was emphatically stressed during this visit . (2) Esophageal varices: Code(s): I85.00 - Esophageal varices without bleeding Status: Acute Subjective Date/time seen: 05/14/25 07:14 Interval history: The patient feels well, no vomiting, no melena. Labs today: Hemoglobin 8.3, hematocrit 26, platelet count 93, INR 1.7, sodium 132, creatinine 0.84, albumin 2.3, bilirubin 0.9. MELD 3.0 score today is 16. Exam Const: General: comfortable and no acute distress HENMT: Face/Nose/Sinus: Normal nares present Eyes: General: appearance normal, both eyes and all related structures Neck: Neck: supple Resp: Auscultation: clear to auscultation bilaterally Cardio: Rate: regular rate Rhythm: regular rhythm GI: Inspection: non-distended GI Palp: Yes Soft to palpation and No Tenderness to palpation present (GI) Skin: Wounds: no wounds Neuro: Speech: normal speech Extrem: General: normal to inspection Psych: Mental Status: mental status grossly normal Objective Data Vital Signs Vital Signs: Vital Signs - 24 hr 05/13/25 08:00 05/13/25 08:00 05/13/25 08:20 Temperature Pulse Rate 64 72 Respiratory Rate 20 Blood Pressure 109/66 Pulse Oximetry 98 Oxygen Delivery Room Air 05/13/25 08:24 05/13/25 08:44 05/13/25 08:56 Temperature Pulse Rate 59 L Respiratory Rate Blood Pressure Pulse Oximetry Oxygen Delivery Room Air Room Air 05/13/25 09:00 05/13/25 12:00 05/13/25 12:00 Temperature 98.0 F Pulse Rate 58 L 59 L Respiratory Rate 18 Blood Pressure 113/74 Pulse Oximetry 96 98 Oxygen Delivery Room Air 05/13/25 16:00 05/13/25 16:02 05/13/25 19:42 Temperature 98.1 F 98.1 F Pulse Rate 56 L 55 L 58 L Respiratory Rate 20 20 Blood Pressure 116/58 L 114/73 Pulse Oximetry 97 96 Oxygen Delivery 05/13/25 20:00 05/13/25 21:00 05/13/25 22:01 Temperature Pulse Rate 56 L 58 L Respiratory Rate Blood Pressure Pulse Oximetry Oxygen Delivery Room Air 05/14/25 00:00 05/14/25 00:00 05/14/25 04:00 Temperature 97.7 F 97.9 F Pulse Rate 60 66 59 L Respiratory Rate 20 20 Blood Pressure 115/70 116/71 Pulse Oximetry 96 96 Oxygen Delivery 05/14/25 04:00 Temperature Pulse Rate 63 Respiratory Rate Blood Pressure Pulse Oximetry Oxygen Delivery Intake/Output Intake/Output: Intake & Output 05/11/25 05/12/25 05/13/25 05/14/25 23:59 23:59 23:59 23:59 Intake Total 750 2450.0 600 300 Output Total 1950 2100 Balance -1200 350.0 600 300 Meds/Results Medications: Active Medications Generic Name Dose Route Start Last Admin Trade Name Freq PRN Reason Stop Dose Admin Albuterol/Ipratropium 3 ml 05/12/25 08:07 05/12/25 08:30 Ipratropium 0.5 Mg/Albuterol Sulfate 2.5 Mg (Base) Ampul.Neb 3 Ml INHALATION 3 ml Q4HR PRN Administration Wheezing Calcium Carbonate 500 mg 05/12/25 08:00 05/13/25 08:23 Calcium/Vitamin D 500 Mg/5 Mcg (200 I.U.) Tablet PO 500 mg DAILY@0800 RUBY Administration Carvedilol 3.125 mg 05/11/25 09:00 05/13/25 22:01 Carvedilol 3.125 Mg Tablet PO 3.125 mg Q12HR RUBY Administration Folic Acid 1 mg 05/11/25 09:00 05/13/25 08:23 Folic Acid 1 Mg Tablet PO 1 mg DAILY RUBY Administration Lactulose 20 gm 05/11/25 09:00 05/13/25 16:38 Lactulose 20 Gm/30 Ml Udc BY MOUTH 20 gm BID RUBY Administration Phenol 1 spray 05/13/25 10:49 05/13/25 16:38 Phenol/Sod Pheno [place] Landry (*Bkc) MUCOUS MEM 1 spray PRN PRN Administration Sore Throat Thiamine HCl 100 mg 05/11/25 09:00 05/13/25 08:23 Thiamine Hcl 100 Mg Tablet PO 100 mg QAM RUBY Administration Tramadol HCl 25 mg 05/12/25 20:48 05/14/25 04:33 Tramadol Hcl (*Crx) 25 Mg Tablet PO 25 mg Q4H PRN Administration Pain Rated 4-6 Trimethoprim/Sulfamethoxazole 1 tab 05/14/25 09:00 Sulfamethoxazole/Trimethoprim 800/160 Mg Ds Tablet PO 05/15/25 21:01 Q12HR [facility] Radiology Results: ITS Impressions Head CT 05/09/25 06:25 IMPRESSION: 1. No acute intracranial findings. Chest/Abdomen/Pelvis CTA 05/09/25 06:58 IMPRESSION: 1. No active hemorrhage. 2. Cirrhosis of the liver. 3. Wall thickening of the esophagus, consistent with edema versus esophagitis. 4. Umbilical hernia and bilateral inguinal hernias containing fat. Abdomen Ultrasound 05/09/25 16:35 IMPRESSION: 1. No evidence of gallstones. Bile ducts are normal in size. 2. Hepatomegaly with nodular liver and heterogeneous texture with cirrhosis. 3. Mildly dilated portal vein consistent with portal venous hypertension. There is no ascites. Chest X-Ray 05/10/25 08:18 Impression: CHF Abdomen X-Ray 05/10/25 12:44 IMPRESSION: 1. Nonobstructive bowel gas pattern with nasogastric tube tip in proximal side port in the body the stomach. 2. Bibasilar lung disease which could represent atelectasis or pneumonia. Labs Labs: Laboratory Results - last 24 hr 05/13/25 05/14/25 15:56 04:42 WBC 4.9 RBC 2.82 L Hgb 8.3 L Hct 26.0 L MCV 92.2 MCH 29.4 MCHC 31.9 L RDW 16.0 H Plt Count 93 L MPV 9.7 % Immature Plt Fraction 2.5 Sodium 132 L Potassium 3.5 Chloride 103 Carbon Dioxide 29 Anion Gap 0 L BUN 11 Creatinine 0.84 Estim Creat Clear Calc 100 Estimated GFR > 60 Glucose 77 Calcium 7.4 L Phosphorus 2.9 Magnesium 2.1 Total Bilirubin 0.9 AST 56 ALT 13 Alkaline Phosphatase 154 H Total Protein 5.6 L Albumin 2.3 L Triglycerides 207 H
--- NOTE | 2025-05-14 08:01 | P.PNIM_ITS ---
Assessment and Plan Assessment and Plan (1) PRB (rectal bleeding): Code(s): K62.5 - Hemorrhage of anus and rectum Status: Acute Assessment and Plan: patient with new episodes of BRBPR x 3, appears to be large amount per patient he has never had these symptoms before NPO GI contacted, further recommendations per GI IV fluids stat CBC serial CBC's to monitor H&H (2) Hematemesis: Code(s): K92.0 - Hematemesis Status: Acute Assessment and Plan: 05/09: patient presented with hematemesis at home and multiple episodes in the ER - GI was called into the ER early this morning to scope the patient -05/09/2025: EGD done in the ER: Grade 3 varices, 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 status post 3 bands. Moderate gastritis in the stomach, portal hypertensive changes, no mucosal bleeding. Old blood noted in the fundus of the stomach. The bulb and the 2nd portion of duodenum was normal with no ulcers or masses. - patient completed octreotide infusion per GI for 72 hours -PPI stopped per GI . -patient was tolerating regular diet -AM labs (3) GI (gastrointestinal bleed): Qualifiers: GI bleed type/associated pathology: unspecified gastrointestinal hemorrhage type Qualified Code(s): K92.2 - Gastrointestinal hemorrhage, unspecified Code(s): K92.2 - Gastrointestinal hemorrhage, unspecified Status: Acute Assessment and Plan: as above (4) Acute blood loss anemia: Code(s): D62 - Acute posthemorrhagic anemia Status: Acute Assessment and Plan: patient received 1 unit of packed RBCs - repeat hemoglobin has been stable Continue to monitor hemoglobin -AM labs (5) Thrombocytopenia: Code(s): D69.6 - Thrombocytopenia, unspecified Status: Acute Assessment and Plan: Thrombocytopenia likely related to cirrhosis and now consumptive - continue to monitor (6) Cirrhosis: Code(s): K74.60 - Unspecified cirrhosis of liver Status: Acute Assessment and Plan: cirrhosis likely related to alcohol use disorder -MELD score is 17 - GI following, and recommended right upper quadrant ultrasound -ammonia level improved. Continue lactulose but decrease dose to b.i.d. -monitor ammonia level -discussed need for patient to abstain from alcohol after discharge -discussed need for patient to establish with a PCP and clinical assessment manager upon return to [place] (7) Alcohol use disorder: Code(s): F10.90 - Alcohol use, unspecified, uncomplicated Status: Acute Assessment and Plan: alcohol use disorder: Patient drinks 8 beers a day for 20 years according to records - will monitor for alcohol withdrawal/DTs -thiamine and folic acid -discussed with patient and family that patient needs to abstain from alcohol on discharge -no signs of withdrawal currently (8) Elevated troponin: Code(s): R79.89 - Other specified abnormal findings of blood chemistry Status: Acute Assessment and Plan: troponin elevated likely related to GI bleed - repeat troponins have been trending down - unknown if patient complained of any chest pain (9) Acute respiratory failure: Code(s): J96.00 - Acute respiratory failure, unspecified whether with hypoxia or hypercapnia Status: Acute Assessment and Plan: Patient extubated on05/10 Now on room air Continue incentive spirometry (10) Hypertension: Code(s): I10 - Essential (primary) hypertension Status: Acute Assessment and Plan: Continue Coreg, increase to 6.25 mg per GI recommendations (11) Electrolyte abnormality: Code(s): E87.8 - Other disorders of electrolyte and fluid balance, not elsewhere classified Status: Acute Assessment and Plan: Replace low potassium and calcium (12) Bacteremia: Code(s): R78.81 - Bacteremia Status: Acute Assessment and Plan: His blood culture 1 hour to a growing Gram-positive cocci. Identification is pending. Could be contaminant. Continue vanc and Rocephin until results are back repeat blood cultures ordered discussed with ID pharmacist, since only one bottle is positive appears to be a contaminant stop IV vancomycin continue IV ceftriaxone for SBP prevention and will transition to PO bactrim Subjective Date/time seen: 05/14/25 08:01 Interval history: Patient seen for a follow up visit. Patient lying in bed, in no acute distress. Patient had an episode of nausea with dry heaving this morning with no emesis output. Patient received IV ondansetron. Patient has now had 3 bowel movements with what appears to be a good amount of bright red blood pre rectum. Patient denies abdominal pain. Patient denies having BRBPR before. Patient made NPO for now. GI contacted. Stat CBC ordered. Will monitor serial H&H's. Further recommendations per GI. Review of Systems Review of Systems: All systems reviewed & are unremarkable except as noted in HPI and below (HPI) Exam Narrative: General: Alert awake and in no acute distress HEENT:? pupils equal and reactive, sclera is clear, Neck:? supple Respiratory:? clear to auscultation bilaterally, adequate air entry, no wheezing Cardiac:? S1-S2 normal, regular rate and rhythm Abdomen:? soft, nontender, nondistended, hypoactive bowel sounds Extremities:? no edema, palpable pedal pulses Neuro:? Alert and oriented x 3 Skin:? no skin lesions noted Psych:?calm, mood stable Objective Data Vital Signs Vital Signs: Vital Signs - 24 hr 05/13/25 08:20 05/13/25 08:24 05/13/25 08:44 Temperature Pulse Rate 59 L Respiratory Rate Blood Pressure Pulse Oximetry Oxygen Delivery Room Air Room Air 05/13/25 08:56 05/13/25 09:00 05/13/25 12:00 Temperature 98.0 F Pulse Rate 58 L Respiratory Rate 18 Blood Pressure 113/74 Pulse Oximetry 96 98 Oxygen Delivery Room Air Room Air 05/13/25 12:00 05/13/25 16:00 05/13/25 16:02 Temperature 98.1 F Pulse Rate 59 L 56 L 55 L Respiratory Rate 20 Blood Pressure 116/58 L Pulse Oximetry 97 Oxygen Delivery 05/13/25 19:42 05/13/25 20:00 05/13/25 21:00 Temperature 98.1 F Pulse Rate 58 L 56 L Respiratory Rate 20 Blood Pressure 114/73 Pulse Oximetry 96 Oxygen Delivery Room Air 05/13/25 22:01 05/14/25 00:00 05/14/25 00:00 Temperature 97.7 F Pulse Rate 58 L 60 66 Respiratory Rate 20 Blood Pressure 115/70 Pulse Oximetry 96 Oxygen Delivery 05/14/25 04:00 05/14/25 04:00 Temperature 97.9 F Pulse Rate 59 L 63 Respiratory Rate 20 Blood Pressure 116/71 Pulse Oximetry 96 Oxygen Delivery Intake/Output Intake/Output: Intake & Output 05/11/25 05/12/25 05/13/25 05/14/25 23:59 23:59 23:59 23:59 Intake Total 750 2450.0 600 300 Output Total 1950 2100 Balance -1200 350.0 600 300 Meds/Results Medications: Active Medications Generic Name Dose Route Start Last Admin Trade Name Freq PRN Reason Stop Dose Admin Albuterol/Ipratropium 3 ml 05/12/25 08:07 05/12/25 08:30 Ipratropium 0.5 Mg/Albuterol Sulfate 2.5 Mg (Base) Ampul.Neb 3 Ml INHALATION 3 ml Q4HR PRN Administration Wheezing Calcium Carbonate 500 mg 05/12/25 08:00 05/13/25 08:23 Calcium/Vitamin D 500 Mg/5 Mcg (200 I.U.) Tablet PO 500 mg DAILY@0800 RUBY Administration Carvedilol 3.125 mg 05/11/25 09:00 05/13/25 22:01 Carvedilol 3.125 Mg Tablet PO 3.125 mg Q12HR RUBY Administration Folic Acid 1 mg 05/11/25 09:00 05/13/25 08:23 Folic Acid 1 Mg Tablet PO 1 mg DAILY RUBY Administration Lactulose 20 gm 05/11/25 09:00 05/13/25 16:38 Lactulose 20 Gm/30 Ml Udc BY MOUTH 20 gm BID RUBY Administration Phenol 1 spray 05/13/25 10:49 05/13/25 16:38 Phenol/Sod Pheno [place] (*Bkc) MUCOUS MEM 1 spray PRN PRN Administration Sore Throat Thiamine HCl 100 mg 05/11/25 09:00 05/13/25 08:23 Thiamine Hcl 100 Mg Tablet PO 100 mg QAM RUBY Administration Tramadol HCl 25 mg 05/12/25 20:48 05/14/25 04:33 Tramadol Hcl (*Crx) 25 Mg Tablet PO 25 mg Q4H PRN Administration Pain Rated 4-6 Trimethoprim/Sulfamethoxazole 1 tab 05/14/25 09:00 Sulfamethoxazole/Trimethoprim 800/160 Mg Ds Tablet PO 05/15/25 21:01 Q12HR [facility] Radiology Results: ITS Impressions Head CT 05/09/25 06:25 IMPRESSION: 1. No acute intracranial findings. Chest/Abdomen/Pelvis CTA 05/09/25 06:58 IMPRESSION: 1. No active hemorrhage. 2. Cirrhosis of the liver. 3. Wall thickening of the esophagus, consistent with edema versus esophagitis. 4. Umbilical hernia and bilateral inguinal hernias containing fat. Abdomen Ultrasound 05/09/25 16:35 IMPRESSION: 1. No evidence of gallstones. Bile ducts are normal in size. 2. Hepatomegaly with nodular liver and heterogeneous texture with cirrhosis. 3. Mildly dilated portal vein consistent with portal venous hypertension. There is no ascites. Chest X-Ray 05/10/25 08:18 Impression: CHF Abdomen X-Ray 05/10/25 12:44 IMPRESSION: 1. Nonobstructive bowel gas pattern with nasogastric tube tip in proximal side port in the body the stomach. 2. Bibasilar lung disease which could represent atelectasis or pneumonia. Labs Labs: Laboratory Results - last 24 hr 05/13/25 05/14/25 15:56 04:42 WBC 4.9 RBC 2.82 L Hgb 8.3 L Hct 26.0 L MCV 92.2 MCH 29.4 MCHC 31.9 L RDW 16.0 H Plt Count 93 L MPV 9.7 % Immature Plt Fraction 2.5 Sodium 132 L Potassium 3.5 Chloride 103 Carbon Dioxide 29 Anion Gap 0 L BUN 11 Creatinine 0.84 Estim Creat Clear Calc 100 Estimated GFR > 60 Glucose 77 Calcium 7.4 L Phosphorus 2.9 Magnesium 2.1 Total Bilirubin 0.9 AST 56 ALT 13 Alkaline Phosphatase 154 H Total Protein 5.6 L Albumin 2.3 L Triglycerides 207 H Quality VTE Prophylaxis VTE prophylaxis: mechanical ordered
[2025-05-14 14:41] LABS: Hematocrit 27.9 % (42.0-52.0); Hemoglobin 9.3 g/dL (14.0-18.0); Immature Platelet Fraction Pct 1.9 % (0.9-11.2); Mean Corpuscular HGB Conc 33.3 g/dl (32-36); Mean Corpuscular Hemoglobin 29.5 pg (26-34); Mean Corpuscular Volume 88.6 fl (80-100); Platelet Count Result 113 k/mm3 (150-375); Red Blood Count 3.15 M/mm3 (4.6-6.20); White Blood Count 5.9 K/mm3 (4.5-10.0)
[2025-05-14] MEDS: THIAMINE HCL 100 MG TABLET PO (15:05)
[2025-05-14] MEDS: LACTULOSE 20 GM/30 ML UDC BY MOUTH ×2 (15:05→18:00)
[2025-05-14] MEDS: FOLIC ACID 1 MG TABLET PO (15:05)
[2025-05-14] MEDS: CALCIUM/VITAMIN D 500 MG/5 MCG (200 I.U.) TABLET PO (15:05)
[2025-05-14] MEDS: SULFAMETHOXAZOLE/TRIMETHOPRIM 800/160 MG DS TABLET 1 TAB PO ×2 (15:05→20:27)
[2025-05-14] MEDS: SODIUM CHLORIDE 0.9% IV 1,000 ML 100 ML IV CONT (15:08)
[2025-05-14] MEDS: ONDANSETRON INJ 4 MG/2 ML VIAL (15:42)
--- NOTE | 2025-05-14 16:02 | P.PNGI_ITS ---
Progress Note: A&P Assessment and Plan (1) PRB (rectal bleeding): Code(s): K62.5 - Hemorrhage of anus and rectum Status: Acute Assessment and Plan: The patient remains stable from the standpoint of portal hypertension and recent esophageal variceal bleeding. However, a new event of bright red blood per rectum warrants evaluation. The differential diagnosis for this new bleeding includes internal hemorrhoids, colitis, polyps, diverticulosis or colorectal neoplasia. Therefore, the patient will be kept over the weekend, and a colonoscopy is scheduled to be performed on Friday. Subjective Date/time seen: 05/14/25 16:02 Interval history: After our visit this morning, the patient had few episodes of dry heaves, not associated with blood. However, he had several bowel movements which were bright red blood. He remains hemodynamically stable. Exam Const: General: comfortable and no acute distress Resp: Auscultation: clear to auscultation bilaterally Cardio: Rate: regular rate Rhythm: regular rhythm GI: Inspection: non-distended GI Palp: Yes Soft to palpation, No Firmness to palpation present (GI) and No Tenderness to palpation present (GI) Auscultation: normal bowel sounds Objective Data Vital Signs Vital Signs: Vital Signs - 24 hr 05/13/25 19:42 05/13/25 20:00 05/13/25 21:00 Temperature 98.1 F Pulse Rate 58 L 56 L Respiratory Rate 20 Blood Pressure 114/73 Pulse Oximetry 96 Oxygen Delivery Room Air 05/13/25 22:01 05/14/25 00:00 05/14/25 00:00 Temperature 97.7 F Pulse Rate 58 L 60 66 Respiratory Rate 20 Blood Pressure 115/70 Pulse Oximetry 96 Oxygen Delivery 05/14/25 04:00 05/14/25 04:00 05/14/25 08:00 Temperature 97.9 F Pulse Rate 59 L 63 Respiratory Rate 20 Blood Pressure 116/71 Pulse Oximetry 96 Oxygen Delivery Room Air 05/14/25 08:00 05/14/25 08:30 05/14/25 12:00 Temperature 98.6 F 98.4 F Pulse Rate 61 67 64 Respiratory Rate 16 17 Blood Pressure 138/58 L 132/62 Pulse Oximetry 100 99 Oxygen Delivery 05/14/25 12:00 05/14/25 15:42 Temperature Pulse Rate 62 64 Respiratory Rate Blood Pressure Pulse Oximetry Oxygen Delivery Intake/Output Intake/Output: Intake & Output 05/11/25 05/12/25 05/13/25 05/14/25 23:59 23:59 23:59 23:59 Intake Total 750 2450.0 600 900 Output Total 1950 2100 Balance -1200 350.0 600 900 Meds/Results Medications: Active Medications Generic Name Dose Route Start Last Admin Trade Name Freq PRN Reason Stop Dose Admin Albuterol/Ipratropium 3 ml 05/12/25 08:07 05/12/25 08:30 Ipratropium 0.5 Mg/Albuterol Sulfate 2.5 Mg (Base) Ampul.Neb 3 Ml INHALATION 3 ml Q4HR PRN Administration Wheezing Calcium Carbonate 500 mg 05/12/25 08:00 05/14/25 15:05 Calcium/Vitamin D 500 Mg/5 Mcg (200 I.U.) Tablet PO 500 mg DAILY@0800 RUBY Administration Carvedilol 6.25 mg 05/14/25 21:00 Carvedilol 6.25 Mg Tablet PO Q12HR RUBY Folic Acid 1 mg 05/11/25 09:00 05/14/25 15:05 Folic Acid 1 Mg Tablet PO 1 mg DAILY RUBY Administration Sodium Chloride 1,000 mls @ 100 mls/hr 05/14/25 15:00 05/14/25 15:08 Normal Saline Iv IV CONT 100 mls/hr .Q10H RUBY Administration Lactulose 20 gm 05/11/25 09:00 05/14/25 15:05 Lactulose 20 Gm/30 Ml Udc BY MOUTH 20 gm BID RUBY Administration Ondansetron HCl 4 mg 05/14/25 08:40 Ondansetron Inj 4 Mg/2 Ml Vial IV PUSH Q6H PRN Nausea And Vomiting Phenol 1 spray 05/13/25 10:49 05/13/25 16:38 Phenol/Sod Pheno [place] (*Bkc) MUCOUS MEM 1 spray PRN PRN Administration Sore Throat Thiamine HCl 100 mg 05/11/25 09:00 05/14/25 15:05 Thiamine Hcl 100 Mg Tablet PO 100 mg QAM RUBY Administration Tramadol HCl 25 mg 05/12/25 20:48 05/14/25 04:33 Tramadol Hcl (*Crx) 25 Mg Tablet PO 25 mg Q4H PRN Administration Pain Rated 4-6 Trimethoprim/Sulfamethoxazole 1 tab 05/14/25 09:00 05/14/25 15:05 Sulfamethoxazole/Trimethoprim 800/160 Mg Ds Tablet PO 05/15/25 21:01 1 tab Q12HR RUBY Administration Radiology Results: ITS Impressions Head CT 05/09/25 06:25 IMPRESSION: 1. No acute intracranial findings. Chest/Abdomen/Pelvis CTA 05/09/25 06:58 IMPRESSION: 1. No active hemorrhage. 2. Cirrhosis of the liver. 3. Wall thickening of the esophagus, consistent with edema versus esophagitis. 4. Umbilical hernia and bilateral inguinal hernias containing fat. Abdomen Ultrasound 05/09/25 16:35 IMPRESSION: 1. No evidence of gallstones. Bile ducts are normal in size. 2. Hepatomegaly with nodular liver and heterogeneous texture with cirrhosis. 3. Mildly dilated portal vein consistent with portal venous hypertension. There is no ascites. Chest X-Ray 05/10/25 08:18 Impression: CHF Abdomen X-Ray 05/10/25 12:44 IMPRESSION: 1. Nonobstructive bowel gas pattern with nasogastric tube tip in proximal side port in the body the stomach. 2. Bibasilar lung disease which could represent atelectasis or pneumonia. Labs Labs: Laboratory Results - last 24 hr 05/13/25 05/14/25 05/14/25 15:56 04:42 14:28 WBC 4.9 5.9 RBC 2.82 L 3.15 L Hgb 8.3 L 9.3 L Hct 26.0 L 27.9 L MCV 92.2 88.6 MCH 29.4 29.5 MCHC 31.9 L 33.3 RDW 16.0 H 16.3 H Plt Count 93 L 113 L MPV 9.7 9.2 % Immature Plt Fraction 2.5 1.9 Sodium 132 L Potassium 3.5 Chloride 103 Carbon Dioxide 29 Anion Gap 0 L BUN 11 Creatinine 0.84 Estim Creat Clear Calc 100 Estimated GFR > 60 Glucose 77 Calcium 7.4 L Phosphorus 2.9 Magnesium 2.1 Total Bilirubin 0.9 AST 56 ALT 13 Alkaline Phosphatase 154 H Total Protein 5.6 L Albumin 2.3 L Triglycerides 207 H
[2025-05-14 20:07] LABS: Hematocrit 26.3 % (42.0-52.0); Hemoglobin 8.6 g/dL (14.0-18.0); Mean Corpuscular HGB Conc 32.7 g/dl (32-36); Mean Corpuscular Hemoglobin 29.4 pg (26-34); Mean Corpuscular Volume 89.8 fl (80-100); Red Blood Count 2.93 M/mm3 (4.6-6.20); White Blood Count 4.2 K/mm3 (4.5-10.0)
[2025-05-14 20:08] LABS: Platelet Count Result 76 k/mm3 (150-375)
[2025-05-15] VITALS (10 sets, daily range): BP systolic 100–104; BP diastolic 50–65; PULSE 45–60; RESP 16–18; TEMP 36.1–36.4; O2SAT 97–98
[2025-05-15] MEDS: traMADol HCL (*CRX) 25 MG TABLET PO ×2 (00:34→09:37)
[2025-05-15] MEDS: SODIUM CHLORIDE 0.9% IV 1,000 ML 100 ML IV CONT ×3 (00:39→19:47)
[2025-05-15 02:18] LABS: Hematocrit 23.9 % (42.0-52.0); Hemoglobin 7.7 g/dL (14.0-18.0); Immature Platelet Fraction Pct 2.1 % (0.9-11.2); Mean Corpuscular HGB Conc 32.2 g/dl (32-36); Mean Corpuscular Hemoglobin 29.6 pg (26-34); Mean Corpuscular Volume 91.9 fl (80-100); Red Blood Count 2.60 M/mm3 (4.6-6.20); White Blood Count 4.0 K/mm3 (4.5-10.0)
[2025-05-15 02:20] LABS: Platelet Count Result 88 k/mm3 (150-375)
[2025-05-15 02:27] LABS: Alanine Aminotransferase 13 U/L (6-50); Albumin Level 2.4 g/dL (3.5-5.1); Alkaline Phosphatase 168 U/L (38-126); Anion Gap 0 mmol/L (4-12); Aspartate Amino Transferase 50 U/L (17-59); Bilirubin,Total 0.9 mg/dL (0.2-1.3); Blood Urea Nitrogen 10 mg/dL (9-20); Calcium 7.6 mg/dL (8.4-10.2); Carbon Dioxide 28 mmol/L (22-30); Chloride 105 mmol/L (98-107); Estimated CRCL calculation 92 ml/min; Estimated Glomerular Filt Rate > 60; Glucose 93 mg/dL (65-110); Magnesium 2.1 mg/dL (1.6-2.3); Potassium 3.9 mmol/L (3.4-5.0); Sodium 133 mmol/L (137-145); Total Protein 5.6 g/dL (6.3-8.2)
[2025-05-15 07:48] LABS: Hematocrit 24.4 % (42.0-52.0); Hemoglobin 7.7 g/dL (14.0-18.0); Immature Platelet Fraction Pct 2.0 % (0.9-11.2); Mean Corpuscular HGB Conc 31.6 g/dl (32-36); Mean Corpuscular Hemoglobin 28.9 pg (26-34); Mean Corpuscular Volume 91.7 fl (80-100); Red Blood Count 2.66 M/mm3 (4.6-6.20); White Blood Count 4.4 K/mm3 (4.5-10.0)
[2025-05-15 07:50] LABS: Platelet Count Result 91 k/mm3 (150-375)
[2025-05-15] MEDS: FOLIC ACID 1 MG TABLET PO (09:21)
[2025-05-15] MEDS: LACTULOSE 20 GM/30 ML UDC BY MOUTH ×2 (09:21→17:07)
[2025-05-15] MEDS: THIAMINE HCL 100 MG TABLET PO (09:21)
[2025-05-15] MEDS: SULFAMETHOXAZOLE/TRIMETHOPRIM 800/160 MG DS TABLET 1 TAB PO ×2 (09:21→20:12)
[2025-05-15] MEDS: CALCIUM/VITAMIN D 500 MG/5 MCG (200 I.U.) TABLET PO (09:21)
--- NOTE | 2025-05-15 09:49 | WPDGIPROGNO ---
Progress Note: A&P Assessment and Plan (1) GI (gastrointestinal bleed): Qualifiers: GI bleed type/associated pathology: unspecified gastrointestinal hemorrhage type Qualified Code(s): K92.2 - Gastrointestinal hemorrhage, unspecified Code(s): K92.2 - Gastrointestinal hemorrhage, unspecified Status: Acute Assessment and Plan: The patient has new onset rectal bleeding which will be investigated. He is being prepared for colonoscopy tomorrow. If colonoscopy shows only hemorrhoids, and depending of the magnitude, will consult surgery for treatment, otherwise he can be discharged home after colonoscopy. Subjective Date/time seen: 05/15/25 09:49 Interval history: The patient had 2 bloody bowel movements this morning. He remains hemodynamically stable with a hemoglobin 7.7 today. Review of Systems Review of Systems: All systems reviewed & are unremarkable except as noted in HPI and below Objective Data Vital Signs Vital Signs: Vital Signs - 24 hr 05/14/25 12:00 05/14/25 12:00 05/14/25 15:42 Temperature 98.4 F Pulse Rate 64 62 64 Respiratory Rate 17 Blood Pressure 132/62 Pulse Oximetry 99 Oxygen Delivery Fraction of Inspired Oxygen 05/14/25 16:00 05/14/25 16:00 05/14/25 20:00 Temperature 97.7 F 97.2 F L Pulse Rate 55 L 66 52 L Respiratory Rate 17 16 Blood Pressure 127/64 107/65 Pulse Oximetry 99 97 Oxygen Delivery Fraction of Inspired Oxygen 05/14/25 20:00 05/14/25 20:00 05/14/25 20:26 Temperature Pulse Rate 66 57 L 66 Respiratory Rate 16 Blood Pressure Pulse Oximetry 97 Oxygen Delivery Room Air Fraction of Inspired Oxygen 24 05/14/25 23:59 05/15/25 00:00 05/15/25 04:00 Temperature 97.1 F L Pulse Rate 49 L 49 L 52 L Respiratory Rate 14 Blood Pressure 102/50 L Pulse Oximetry 98 Oxygen Delivery Fraction of Inspired Oxygen 05/15/25 06:51 05/15/25 08:00 05/15/25 09:21 Temperature 97.0 F L 97.5 F L Pulse Rate 55 L 58 L 58 L Respiratory Rate 16 16 Blood Pressure 100/50 L 101/52 L Pulse Oximetry 97 97 Oxygen Delivery Fraction of Inspired Oxygen Intake/Output Intake/Output: Intake & Output 12/11/05/13/25 05/14/25 05/15/25 23:59 23:59 23:59 23:59 Intake Total 2450.0 956 397 9700.7 Output Total 2100 800 Balance 350.0 290 378 0371.7 Meds/Results Medications: Active Medications Generic Name Dose Route Start Last Admin Trade Name Freq PRN Reason Stop Dose Admin Albuterol/Ipratropium 3 ml 05/12/25 08:07 05/12/25 08:30 Ipratropium 0.5 Mg/Albuterol Sulfate 2.5 Mg (Base) Ampul.Neb 3 Ml INHALATION 3 ml Q4HR PRN Administration Wheezing Calcium Carbonate 500 mg 05/12/25 08:00 05/15/25 09:21 Calcium/Vitamin D 500 Mg/5 Mcg (200 I.U.) Tablet PO 500 mg DAILY@0800 RUBY Administration Carvedilol 6.25 mg 05/14/25 21:00 05/15/25 09:21 Carvedilol 6.25 Mg Tablet PO 6.25 mg Q12HR RUBY Administration Folic Acid 1 mg 05/11/25 09:00 05/15/25 09:21 Folic Acid 1 Mg Tablet PO 1 mg DAILY RUBY Administration Sodium Chloride 1,000 mls @ 100 mls/hr 05/14/25 15:00 05/15/25 09:27 Normal Saline Iv IV CONT 100 mls/hr .Q10H RUBY Administration Lactulose 20 gm 05/11/25 09:00 05/15/25 09:21 Lactulose 20 Gm/30 Ml Udc BY MOUTH 20 gm BID RUBY Administration Ondansetron HCl 4 mg 05/14/25 08:40 Ondansetron Inj 4 Mg/2 Ml Vial IV PUSH Q6H PRN Nausea And Vomiting Phenol 1 spray 05/13/25 10:49 05/13/25 16:38 Phenol/Sod Pheno [place] (*Bkc) MUCOUS MEM 1 spray PRN PRN Administration Sore Throat Polyethylene Glycol 119 gm 05/15/25 20:00 Polyethylene Glycol 3350 238 Gm Bottle PO 05/16/25 05:01 BID@0500,2000 RUBY Thiamine HCl 100 mg 05/11/25 09:00 05/15/25 09:21 Thiamine Hcl 100 Mg Tablet PO 100 mg QAM RUBY Administration Tramadol HCl 25 mg 05/12/25 20:48 05/15/25 09:37 Tramadol Hcl (*Crx) 25 Mg Tablet PO 25 mg Q4H PRN Administration Pain Rated 4-6 Trimethoprim/Sulfamethoxazole 1 tab 05/14/25 09:00 05/15/25 09:21 Sulfamethoxazole/Trimethoprim 800/160 Mg Ds Tablet PO 05/15/25 21:01 1 tab Q12HR RUBY Administration Radiology Results: ITS Impressions Head CT 05/09/25 06:25 IMPRESSION: 1. No acute intracranial findings. Chest/Abdomen/Pelvis CTA 05/09/25 06:58 IMPRESSION: 1. No active hemorrhage. 2. Cirrhosis of the liver. 3. Wall thickening of the esophagus, consistent with edema versus esophagitis. 4. Umbilical hernia and bilateral inguinal hernias containing fat. Abdomen Ultrasound 05/09/25 16:35 IMPRESSION: 1. No evidence of gallstones. Bile ducts are normal in size. 2. Hepatomegaly with nodular liver and heterogeneous texture with cirrhosis. 3. Mildly dilated portal vein consistent with portal venous hypertension. There is no ascites. Chest X-Ray 05/10/25 08:18 Impression: CHF Abdomen X-Ray 05/10/25 12:44 IMPRESSION: 1. Nonobstructive bowel gas pattern with nasogastric tube tip in proximal side port in the body the stomach. 2. Bibasilar lung disease which could represent atelectasis or pneumonia. Labs Labs: Laboratory Results - last 24 hr 05/14/25 05/14/25 05/15/25 14:28 20:02 02:07 WBC 5.9 4.2 L 4.0 L RBC 3.15 L 2.93 L 2.60 L Hgb 9.3 L 8.6 L 7.7 L Hct 27.9 L 26.3 L 23.9 L MCV 88.6 89.8 91.9 MCH 29.5 29.4 29.6 MCHC 33.3 32.7 32.2 RDW 16.3 H 16.3 H 16.3 H Plt Count 113 L 76 L 88 L MPV 9.2 9.1 9.1 % Immature Plt Fraction 1.9 2.1 Sodium 133 L Potassium 3.9 Chloride 105 Carbon Dioxide 28 Anion Gap 0 L BUN 10 Creatinine 0.92 Estim Creat Clear Calc 92 Estimated GFR > 60 Glucose 93 Calcium 7.6 L Phosphorus 3.3 Magnesium 2.1 Total Bilirubin 0.9 AST 50 ALT 13 Alkaline Phosphatase 168 H Total Protein 5.6 L Albumin 2.4 L 05/15/25 07:42 WBC 4.4 L RBC 2.66 L Hgb 7.7 L Hct 24.4 L MCV 91.7 MCH 28.9 MCHC 31.6 L RDW 16.1 H Plt Count 91 L MPV 9.2 % Immature Plt Fraction 2.0 Sodium Potassium Chloride Carbon Dioxide Anion Gap BUN Creatinine Estim Creat Clear Calc Estimated GFR Glucose Calcium Phosphorus Magnesium Total Bilirubin AST ALT Alkaline Phosphatase Total Protein Albumin
--- NOTE | 2025-05-15 10:44 | P.PNIM_ITS ---
Assessment and Plan Assessment and Plan (1) PRB (rectal bleeding): Code(s): K62.5 - Hemorrhage of anus and rectum Status: Acute Assessment and Plan: patient with new episodes of BRBPR x 3, appears to be large amount per patient he has never had these symptoms before clear liquid diet GI doing colonoscopy tomorrow, prep per GI orders IV fluids Hgb 7.7 today serial CBC's to monitor H&H (2) Hematemesis: Code(s): K92.0 - Hematemesis Status: Acute Assessment and Plan: 05/09: patient presented with hematemesis at home and multiple episodes in the ER - GI was called into the ER early this morning to scope the patient -05/09/2025: EGD done in the ER: Grade 3 varices, 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 status post 3 bands. Moderate gastritis in the stomach, portal hypertensive changes, no mucosal bleeding. Old blood noted in the fundus of the stomach. The bulb and the 2nd portion of duodenum was normal with no ulcers or masses. - patient completed octreotide infusion per GI for 72 hours -PPI stopped per GI, no need to restart -carvedilol 6.25 mg BID for secondary prophylaxis of variceal bleeding and hepatoprotection. -patient will need to have a 2nd banding procedure in 4-6 weeks, he was instructed by GI he can come back here to have it done or find a provider in [place] where he lives -patient was tolerating regular diet -AM labs (3) GI (gastrointestinal bleed): Qualifiers: GI bleed type/associated pathology: unspecified gastrointestinal hemorrhage type Qualified Code(s): K92.2 - Gastrointestinal hemorrhage, unspecified Code(s): K92.2 - Gastrointestinal hemorrhage, unspecified Status: Acute Assessment and Plan: as above (4) Acute blood loss anemia: Code(s): D62 - Acute posthemorrhagic anemia Status: Acute Assessment and Plan: patient received 1 unit of packed RBCs - repeat hemoglobin has been stable Continue to monitor hemoglobin -AM labs (5) Thrombocytopenia: Code(s): D69.6 - Thrombocytopenia, unspecified Status: Acute Assessment and Plan: Thrombocytopenia likely related to cirrhosis and now consumptive - continue to monitor (6) Cirrhosis: Code(s): K74.60 - Unspecified cirrhosis of liver Status: Acute Assessment and Plan: cirrhosis likely related to alcohol use disorder -MELD score is 17 - GI following, and recommended right upper quadrant ultrasound -ammonia level improved. Continue lactulose but decrease dose to b.i.d. 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 [place] (7) Alcohol use disorder: Code(s): F10.90 - Alcohol use, unspecified, uncomplicated Status: Acute Assessment and Plan: alcohol use disorder: Patient drinks 8 beers a day for 20 years according to records - will monitor for alcohol withdrawal/DTs -thiamine and folic acid -discussed with patient and family that patient needs to abstain from alcohol on discharge -no signs of withdrawal currently (8) Elevated troponin: Code(s): R79.89 - Other specified abnormal findings of blood chemistry Status: Acute Assessment and Plan: troponin elevated likely related to GI bleed - repeat troponins have been trending down - unknown if patient complained of any chest pain (9) Acute respiratory failure: Code(s): J96.00 - Acute respiratory failure, unspecified whether with hypoxia or hypercapnia Status: Acute Assessment and Plan: Patient extubated on05/10 Now on room air Continue incentive spirometry (10) Hypertension: Code(s): I10 - Essential (primary) hypertension Status: Acute Assessment and Plan: Continue Coreg Monitor BP and adjust medications as indicated (11) Electrolyte abnormality: Code(s): E87.8 - Other disorders of electrolyte and fluid balance, not elsewhere classified Status: Acute Assessment and Plan: Replace low potassium and calcium (12) Bacteremia: Code(s): R78.81 - Bacteremia Status: Acute Assessment and Plan: His blood culture 1 hour to a growing Gram-positive cocci. Identification is pending. Could be contaminant. Continue vanc and Rocephin until results are back repeat blood cultures ordered discussed with ID pharmacist, since only one bottle is positive appears to be a contaminant stop IV vancomycin continue IV ceftriaxone for SBP prevention and will transition to PO bactrim Consultations Consultations: I have discussed the care of this pt with the consulting providers. Subjective Date/time seen: 05/15/25 10:44 Interval history: Patient seen for a follow up visit. Patient lying in bed, in no acute distress. Patient denies acute pain. Patient has had 2 bloody bowel movements so far today. Plan for a colonoscopy tomorrow per GI. Patient will prep per GI orders. Patient's hemglobin 7.7 this AM, will continue to monitor serial hemoglobins. Patient continues on IV fluids and clear liquid diet for now. Patient's discharge plan will be determiend based on colonoscopy results for this new lower GI bleeding that is occuring. Review of Systems Review of Systems: All systems reviewed & are unremarkable except as noted in HPI and below (HPI) Exam Narrative: General: Alert awake and in no acute distress HEENT:? pupils equal and reactive, sclera is clear, Neck:? supple Respiratory:? clear to auscultation bilaterally, adequate air entry, no wheezing Cardiac:? S1-S2 normal, regular rate and rhythm Abdomen:? soft, nontender, nondistended, hypoactive bowel sounds Extremities:? no edema, palpable pedal pulses Neuro:? Alert and oriented x 3 Skin:? no skin lesions noted Psych:?calm, mood stable Objective Data Vital Signs Vital Signs: Vital Signs - 24 hr 05/14/25 12:00 05/14/25 12:00 05/14/25 15:42 Temperature 98.4 F Pulse Rate 64 62 64 Respiratory Rate 17 Blood Pressure 132/62 Pulse Oximetry 99 Oxygen Delivery Fraction of Inspired Oxygen 05/14/25 16:00 05/14/25 16:00 05/14/25 20:00 Temperature 97.7 F 97.2 F L Pulse Rate 55 L 66 52 L Respiratory Rate 17 16 Blood Pressure 127/64 107/65 Pulse Oximetry 99 97 Oxygen Delivery Fraction of Inspired Oxygen 05/14/25 20:00 05/14/25 20:00 05/14/25 20:26 Temperature Pulse Rate 66 57 L 66 Respiratory Rate 16 Blood Pressure Pulse Oximetry 97 Oxygen Delivery Room Air Fraction of Inspired Oxygen 24 05/14/25 23:59 05/15/25 00:00 05/15/25 04:00 Temperature 97.1 F L Pulse Rate 49 L 49 L 52 L Respiratory Rate 14 Blood Pressure 102/50 L Pulse Oximetry 98 Oxygen Delivery Fraction of Inspired Oxygen 05/15/25 06:51 05/15/25 08:00 05/15/25 08:00 Temperature 97.0 F L 97.5 F L Pulse Rate 55 L 58 L Respiratory Rate 16 16 Blood Pressure 100/50 L 101/52 L Pulse Oximetry 97 97 Oxygen Delivery Room Air Fraction of Inspired Oxygen 05/15/25 08:00 05/15/25 09:21 Temperature Pulse Rate 56 L 58 L Respiratory Rate Blood Pressure Pulse Oximetry Oxygen Delivery Fraction of Inspired Oxygen Intake/Output Intake/Output: Intake & Output 05/12/25 05/13/25 05/14/25 05/15/25 23:59 23:59 23:59 23:59 Intake Total 2450.0 953 467 7842.7 Output Total 2100 800 Balance 350.0 024 555 3562.7 Meds/Results Medications: Active Medications Generic Name Dose Route Start Last Admin Trade Name Freq PRN Reason Stop Dose Admin Albuterol/Ipratropium 3 ml 05/12/25 08:07 05/12/25 08:30 Ipratropium 0.5 Mg/Albuterol Sulfate 2.5 Mg (Base) Ampul.Neb 3 Ml INHALATION 3 ml Q4HR PRN Administration Wheezing Calcium Carbonate 500 mg 05/12/25 08:00 05/15/25 09:21 Calcium/Vitamin D 500 Mg/5 Mcg (200 I.U.) Tablet PO 500 mg DAILY@0800 RUBY Administration Carvedilol 6.25 mg 05/14/25 21:00 05/15/25 09:21 Carvedilol 6.25 Mg Tablet PO 6.25 mg Q12HR RUBY Administration Folic Acid 1 mg 05/11/25 09:00 05/15/25 09:21 Folic Acid 1 Mg Tablet PO 1 mg DAILY RUBY Administration Sodium Chloride 1,000 mls @ 100 mls/hr 05/14/25 15:00 05/15/25 09:27 Normal Saline Iv IV CONT 100 mls/hr .Q10H RUBY Administration Lactulose 20 gm 05/11/25 09:00 05/15/25 09:21 Lactulose 20 Gm/30 Ml Udc BY MOUTH 20 gm BID RUBY Administration Ondansetron HCl 4 mg 05/14/25 08:40 Ondansetron Inj 4 Mg/2 Ml Vial IV PUSH Q6H PRN Nausea And Vomiting Phenol 1 spray 05/13/25 10:49 05/13/25 16:38 Phenol/Sod Pheno [place] (*Bkc) MUCOUS MEM 1 spray PRN PRN Administration Sore Throat Polyethylene Glycol 119 gm 05/15/25 20:00 Polyethylene Glycol 3350 238 Gm Bottle PO 05/16/25 05:01 BID@0500,2000 [facility] Thiamine HCl 100 mg 05/11/25 09:00 05/15/25 09:21 Thiamine Hcl 100 Mg Tablet PO 100 mg QAM RUBY Administration Tramadol HCl 25 mg 05/12/25 20:48 05/15/25 09:37 Tramadol Hcl (*Crx) 25 Mg Tablet PO 25 mg Q4H PRN Administration Pain Rated 4-6 Trimethoprim/Sulfamethoxazole 1 tab 05/14/25 09:00 05/15/25 09:21 Sulfamethoxazole/Trimethoprim 800/160 Mg Ds Tablet PO 05/15/25 21:01 1 tab Q12HR RUBY Administration Radiology Results: ITS Impressions Head CT 05/09/25 06:25 IMPRESSION: 1. No acute intracranial findings. Chest/Abdomen/Pelvis CTA 05/09/25 06:58 IMPRESSION: 1. No active hemorrhage. 2. Cirrhosis of the liver. 3. Wall thickening of the esophagus, consistent with edema versus esophagitis. 4. Umbilical hernia and bilateral inguinal hernias containing fat. Abdomen Ultrasound 05/09/25 16:35 IMPRESSION: 1. No evidence of gallstones. Bile ducts are normal in size. 2. Hepatomegaly with nodular liver and heterogeneous texture with cirrhosis. 3. Mildly dilated portal vein consistent with portal venous hypertension. There is no ascites. Chest X-Ray 05/10/25 08:18 Impression: CHF Abdomen X-Ray 05/10/25 12:44 IMPRESSION: 1. Nonobstructive bowel gas pattern with nasogastric tube tip in proximal side p ort in the body the stomach. 2. Bibasilar lung disease which could represent atelectasis or pneumonia. Labs Labs: Laboratory Results - last 24 hr 05/14/25 05/14/25 05/15/25 14:28 20:02 02:07 WBC 5.9 4.2 L 4.0 L RBC 3.15 L 2.93 L 2.60 L Hgb 9.3 L 8.6 L 7.7 L Hct 27.9 L 26.3 L 23.9 L MCV 88.6 89.8 91.9 MCH 29.5 29.4 29.6 MCHC 33.3 32.7 32.2 RDW 16.3 H 16.3 H 16.3 H Plt Count 113 L 76 L 88 L MPV 9.2 9.1 9.1 % Immature Plt Fraction 1.9 2.1 Sodium 133 L Potassium 3.9 Chloride 105 Carbon Dioxide 28 Anion Gap 0 L BUN 10 Creatinine 0.92 Estim Creat Clear Calc 92 Estimated GFR > 60 Glucose 93 Calcium 7.6 L Phosphorus 3.3 Magnesium 2.1 Total Bilirubin 0.9 AST 50 ALT 13 Alkaline Phosphatase 168 H Total Protein 5.6 L Albumin 2.4 L 05/15/25 07:42 WBC 4.4 L RBC 2.66 L Hgb 7.7 L Hct 24.4 L MCV 91.7 MCH 28.9 MCHC 31.6 L RDW 16.1 H Plt Count 91 L MPV 9.2 % Immature Plt Fraction 2.0 Sodium Potassium Chloride Carbon Dioxide Anion Gap BUN Creatinine Estim Creat Clear Calc Estimated GFR Glucose Calcium Phosphorus Magnesium Total Bilirubin AST ALT Alkaline Phosphatase Total Protein Albumin Quality VTE Prophylaxis VTE prophylaxis: mechanical ordered
[2025-05-15 17:51] LABS: Hematocrit 24.5 % (42.0-52.0); Hemoglobin 8.1 g/dL (14.0-18.0); Immature Platelet Fraction Pct 2.1 % (0.9-11.2); Mean Corpuscular HGB Conc 33.1 g/dl (32-36); Mean Corpuscular Hemoglobin 29.7 pg (26-34); Mean Corpuscular Volume 89.7 fl (80-100); Platelet Count Result 100 k/mm3 (150-375); Red Blood Count 2.73 M/mm3 (4.6-6.20); White Blood Count 4.0 K/mm3 (4.5-10.0)
[2025-05-15 18:01] LABS: Triglycerides 116 mg/dL (<150)
[2025-05-15 23:02] LABS: Hematocrit 25.2 % (42.0-52.0); Hemoglobin 8.0 g/dL (14.0-18.0); Immature Platelet Fraction Pct 1.8 % (0.9-11.2); Mean Corpuscular HGB Conc 31.7 g/dl (32-36); Mean Corpuscular Hemoglobin 29.5 pg (26-34); Mean Corpuscular Volume 93.0 fl (80-100); Platelet Count Result 105 k/mm3 (150-375); Red Blood Count 2.71 M/mm3 (4.6-6.20); White Blood Count 4.5 K/mm3 (4.5-10.0)
[2025-05-16] VITALS (19 sets, daily range): BP systolic 83–115; BP diastolic 42–86; PULSE 46–93; RESP 15–21; TEMP 36.1–36.6; O2SAT 96–100
[2025-05-16] MEDS: SODIUM CHLORIDE 0.9% IV 1,000 ML 100 ML IV CONT (04:44)
[2025-05-16 05:05] LABS: Hematocrit 25.8 % (42.0-52.0); Hemoglobin 8.0 g/dL (14.0-18.0); Immature Granulocyte Percent A 0.2 % (0-0.5); Immature Platelet Fraction Pct 2.2 % (0.9-11.2); Lymphocytes Absolute Auto 1.79 K/mm3 (0.9-3.2); Mean Corpuscular HGB Conc 31.0 g/dl (32-36); Mean Corpuscular Hemoglobin 29.3 pg (26-34); Mean Corpuscular Volume 94.5 fl (80-100); Nucleated Red Blood Cells Absolute Auto 0.000 K/mm3 (0.0-0.012); Nucleated Red Blood Cells Perc 0.0 % (0.0-0.2); Platelet Count Result 107 k/mm3 (150-375); Red Blood Count 2.73 M/mm3 (4.6-6.20); White Blood Count 4.9 K/mm3 (4.5-10.0)
[2025-05-16 05:53] LABS: Alanine Aminotransferase 13 U/L (6-50); Albumin Level 2.5 g/dL (3.5-5.1); Alkaline Phosphatase 136 U/L (38-126); Anion Gap -1 mmol/L (4-12); Aspartate Amino Transferase 55 U/L (17-59); Bilirubin,Total 1.3 mg/dL (0.2-1.3); Blood Urea Nitrogen 7 mg/dL (9-20); Calcium 7.6 mg/dL (8.4-10.2); Carbon Dioxide 28 mmol/L (22-30); Chloride 107 mmol/L (98-107); Estimated CRCL calculation 92 ml/min; Estimated Glomerular Filt Rate > 60; Glucose 78 mg/dL (65-110); Potassium 4.2 mmol/L (3.4-5.0); Sodium 134 mmol/L (137-145); Total Protein 6.1 g/dL (6.3-8.2)
--- NOTE | 2025-05-16 12:29 | PC.NURSE ---
Report called to Maryellen FARRELL in [facility] Lab.
--- NOTE | 2025-05-16 12:41 | PC.NURSE ---
To GI lab via [facility].
[2025-05-16] MEDS: LACTATED RINGERS 1,000 ML 150 ML IV CONT (13:12)
--- NOTE | 2025-05-16 13:13 | SUR.PREOP ---
Susie used for preop assessment, Tristan #[id number].
--- NOTE | 2025-05-16 13:43 | P.PNIM_ITS ---
Assessment and Plan Assessment and Plan (1) Esophageal varices: Code(s): I85.00 - Esophageal varices without bleeding Status: Acute Assessment and Plan: see below (2) PRB (rectal bleeding): Code(s): K62.5 - Hemorrhage of anus and rectum Status: Acute Assessment and Plan: patient with new episodes of BRBPR x 3, appears to be large amount per patient he has never had these symptoms before GI doing colonoscopy today IV fluids Hgb stable serial CBC's to monitor H&H (3) Hematemesis: Code(s): K92.0 - Hematemesis Status: Acute Assessment and Plan: 05/09: patient presented with hematemesis at home and multiple episodes in the ER - GI was called into the ER early this morning to scope the patient -05/09/2025: EGD done in the ER: Grade 3 varices, 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 status post 3 bands. Moderate gastritis in the stomach, portal hypertensive changes, no mucosal bleeding. Old blood noted in the fundus of the stomach. The bulb and the 2nd portion of duodenum was normal with no ulcers or masses. - patient completed octreotide infusion per GI for 72 hours -PPI stopped per GI, no need to restart -carvedilol 6.25 mg BID for secondary prophylaxis of variceal bleeding and hepat oprotection. -patient will need to have a 2nd banding procedure in 4-6 weeks, he was instructed by GI he can come back here to have it done or find a provider in [place] where he lives -patient was tolerating regular diet -AM labs (4) GI (gastrointestinal bleed): Qualifiers: GI bleed type/associated pathology: unspecified gastrointestinal hemorrhage type Qualified Code(s): K92.2 - Gastrointestinal hemorrhage, unspecified Code(s): K92.2 - Gastrointestinal hemorrhage, unspecified Status: Acute Assessment and Plan: as above (5) Acute blood loss anemia: Code(s): D62 - Acute posthemorrhagic anemia Status: Acute Assessment and Plan: patient received 1 unit of packed RBCs - repeat hemoglobin has been stable Continue to monitor hemoglobin -AM labs (6) Thrombocytopenia: Code(s): D69.6 - Thrombocytopenia, unspecified Status: Acute Assessment and Plan: Thrombocytopenia likely related to cirrhosis and now consumptive - continue to monitor (7) Cirrhosis: Code(s): K74.60 - Unspecified cirrhosis of liver Status: Acute Assessment and Plan: cirrhosis likely related to alcohol use disorder -MELD score is 17 - GI following, and recommended right upper quadrant ultrasound -ammonia level improved. Continue lactulose but decrease dose to b.i.d. 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 [place] (8) Alcohol use disorder: Code(s): F10.90 - Alcohol use, unspecified, uncomplicated Status: Acute Assessment and Plan: alcohol use disorder: Patient drinks 8 beers a day for 20 years according to records - will monitor for alcohol withdrawal/DTs -thiamine and folic acid -discussed with patient and family that patient needs to abstain from alcohol on discharge -no signs of withdrawal currently (9) Elevated troponin: Code(s): R79.89 - Other specified abnormal findings of blood chemistry Status: Acute Assessment and Plan: troponin elevated likely related to GI bleed - repeat troponins have been trending down - unknown if patient complained of any chest pain (10) Acute respiratory failure: Code(s): J96.00 - Acute respiratory failure, unspecified whether with hypoxia or hypercapnia Status: Acute Assessment and Plan: Patient extubated on05/10 Now on room air Continue incentive spirometry (11) Hypertension: Code(s): I10 - Essential (primary) hypertension Status: Acute Assessment and Plan: Continue Coreg Monitor BP and adjust medications as indicated (12) Electrolyte abnormality: Code(s): E87.8 - Other disorders of electrolyte and fluid balance, not elsewhere cla ssified Status: Acute Assessment and Plan: Replace low potassium and calcium (13) Bacteremia: Code(s): R78.81 - Bacteremia Status: Acute Assessment and Plan: His blood culture 1 hour to a growing Gram-positive cocci. Identification is pending. Could be contaminant. Continue vanc and Rocephin until results are back repeat blood cultures ordered discussed with ID pharmacist, since only one bottle is positive appears to be a contaminant stop IV vancomycin s/p IV ceftriaxone and PO bactrim for SBP prevention Consultations Consultations: I have discussed the care of this pt with the consulting providers. Subjective Date/time seen: 05/16/25 13:43 Interval history: Patient seen for follow up visit. Patient lying in bed, in no acute distress. Patient denies acute pain. Patient to have colonoscopy this afternoon. Hemoglobin stable. Plan for discharge tomorrow pending colonoscopy results and stable hemoglobin. Review of Systems Review of Systems: All systems reviewed & are unremarkable except as noted in HPI and below (HPI) Exam Narrative: General: Alert awake and in no acute distress HEENT:? pupils equal and reactive, sclera is clear, Neck:? supple Respiratory:? clear to auscultation bilaterally, adequate air entry, no wheezing Cardiac:? S1-S2 normal, regular rate and rhythm Abdomen:? soft, nontender, nondistended, hypoactive bowel sounds Extremities:? no edema, palpable pedal pulses Neuro:? Alert and oriented x 3 Skin:? no skin lesions noted Psych:?calm, mood stable Objective Data Vital Signs Vital Signs: Vital Signs - 24 hr 05/15/25 16:00 05/15/25 16:00 05/15/25 20:00 Temperature 97.6 F Pulse Rate 58 L 45 L 56 L Respiratory Rate 16 16 Blood Pressure 104/61 Pulse Oximetry 97 97 Oxygen Delivery Room Air Fraction of Inspired Oxygen 24 05/15/25 20:00 05/15/25 20:10 05/15/25 22:11 Temperature 97.2 F L Pulse Rate 60 56 L 45 L Respiratory Rate 18 Blood Pressure 101/65 Pulse Oximetry 98 Oxygen Delivery Fraction of Inspired Oxygen 05/16/25 00:00 05/16/25 04:00 05/16/25 06:00 Temperature 97.8 F Pulse Rate 46 L 46 L 70 Respiratory Rate 18 Blood Pressure 108/48 L Pulse Oximetry 98 Oxygen Delivery Fraction of Inspired Oxygen 05/16/25 07:40 05/16/25 07:40 05/16/25 08:00 Temperature 97.9 F Pulse Rate 46 L 46 L 70 Respiratory Rate 18 18 Blood Pressure 110/52 L Pulse Oximetry 98 96 Oxygen Delivery Room Air Fraction of Inspired Oxygen 05/16/25 08:02 05/16/25 08:22 05/16/25 12:00 Temperature 97.5 F L Pulse Rate 52 L 46 L 93 Respiratory Rate 16 Blood Pressure 109/67 Pulse Oximetry 99 Oxygen Delivery Fraction of Inspired Oxygen 05/16/25 12:03 05/16/25 12:56 Temperature 97 F L Pulse Rate 50 L 49 L Respiratory Rate 18 Blood Pressure 115/75 Pulse Oximetry 100 Oxygen Delivery Room Air Fraction of Inspired Oxygen Intake/Output Intake/Output: Intake & Output 05/13/25 05/14/25 05/15/25 05/16/25 23:59 23:59 23:59 23:59 Intake Total 769 499 0522.7 1668.3 Output Total 800 Balance 821 582 7854.7 1668.3 Meds/Results Medications: Active Medications Generic Name Dose Route Start Last Admin Trade Name Freq PRN Reason Stop Dose Admin Albuterol/Ipratropium 3 ml 05/12/25 08:07 05/12/25 08:30 Ipratropium 0.5 Mg/Albuterol Sulfate 2.5 Mg (Base) Ampul.Neb 3 Ml INHALATION 3 ml Q4HR PRN Administration Wheezing Calcium Carbonate 500 mg 05/12/25 08:00 05/16/25 08:21 Calcium/Vitamin D 500 Mg/5 Mcg (200 I.U.) Tablet PO Not Given DAILY@0800 RUBY Carvedilol 6.25 mg 05/14/25 21:00 05/16/25 08:22 Carvedilol 6.25 Mg Tablet PO Not Given Q12HR RUBY Folic Acid 1 mg 05/11/25 09:00 05/16/25 08:23 Folic Acid 1 Mg Tablet PO Not Given DAILY RUBY Sodium Chloride 1,000 mls @ 100 mls/hr 05/14/25 15:00 05/16/25 12:28 Normal Saline Iv IV CONT 0 mls/hr .Q10H RUBY Infusion Lactated Ringer's 1,000 mls @ 150 mls/hr 05/16/25 12:55 05/16/25 13:12 Lr - Lactated Ringers Iv IV CONT 150 mls/hr .Q6H40M RUBY Administration Lactulose 20 gm 05/11/25 09:00 05/16/25 08:23 Lactulose 20 Gm/30 Ml Udc BY MOUTH Not Given BID RUBY Ondansetron HCl 4 mg 05/14/25 08:40 Ondansetron Inj 4 Mg/2 Ml Vial IV PUSH Q6H PRN Nausea And Vomiting Phenol 1 spray 05/13/25 10:49 05/13/25 16:38 Phenol/Sod Pheno [place] [facility] (*Bkc) MUCOUS MEM 1 spray PRN PRN Administration Sore Throat Thiamine HCl 100 mg 05/11/25 09:00 05/16/25 08:23 Thiamine Hcl 100 Mg Tablet PO Not Given QAM RUBY Tramadol HCl 25 mg 05/12/25 20:48 05/15/25 09:37 Tramadol Hcl (*Crx) 25 Mg Tablet PO 25 mg Q4H PRN Administration Pain Rated 4-6 Radiology Results: ITS Impressions Head CT 05/09/25 06:25 IMPRESSION: 1. No acute intracranial findings. Chest/Abdomen/Pelvis CTA 05/09/25 06:58 IMPRESSION: 1. No active hemorrhage. 2. Cirrhosis of the liver. 3. Wall thickening of the esophagus, consistent with edema versus esophagitis. 4. Umbilical hernia and bilateral inguinal hernias containing fat. Abdomen Ultrasound 05/09/25 16:35 IMPRESSION: 1. No evidence of gallstones. Bile ducts are normal in size. 2. Hepatomegaly with nodular liver and heterogeneous texture with cirrhosis. 3. Mildly dilated portal vein consistent with portal venous hypertension. There is no ascites. Chest X-Ray 05/10/25 08:18 Impression: CHF Abdomen X-Ray 05/10/25 12:44 IMPRESSION: 1. Nonobstructive bowel gas pattern with nasogastric tube tip in proximal side port in the body the stomach. 2. Bibasilar lung disease which could represent atelectasis or pneumonia. Labs Labs: Laboratory Results - last 24 hr 05/15/25 05/15/25 05/16/25 17:23 22:57 04:14 WBC 4.0 L 4.5 4.9 RBC 2.73 L 2.71 L 2.73 L Hgb 8.1 L 8.0 L 8.0 L Hct 24.5 L 25.2 L 25.8 L MCV 89.7 93.0 94.5 MCH 29.7 29.5 29.3 MCHC 33.1 31.7 L 31.0 L RDW 16.5 H 16.4 H 16.5 H Plt Count 100 L 105 L 107 L MPV 9.4 9.2 9.4 Immature Gran % (Auto) 0.2 Neut % (Auto) 47.1 Lymph % (Auto) 36.9 [place] % (Auto) 10.3 H Eos % (Auto) 4.7 H Baso % (Auto) 0.8 Lymph # (Auto) 1.79 [place] # (Auto) 0.5 Eos # (Auto) 0.2 Baso # (Auto) 0.0 Abs Immat Gran (auto) 0.01 Absolute Neuts (auto) 2.3 Absolute Nucleated RBC 0.000 Nucleated RBC % 0.0 % Immature Plt Fraction 2.1 1.8 2.2 Sodium 134 L Potassium 4.2 Chloride 107 Carbon Dioxide 28 Anion Gap -1 L BUN 7 L Creatinine 0.92 Estim Creat Clear Calc 92 Estimated GFR > 60 Glucose 78 Calcium 7.6 L Total Bilirubin 1.3 AST 55 ALT 13 Alkaline Phosphatase 136 H Total Protein 6.1 L Albumin 2.5 L Triglycerides 116 Quality VTE Prophylaxis VTE prophylaxis: mechanical ordered
--- NOTE | 2025-05-16 13:47 | P.PNAN_ITS ---
Anes - Initial Pre Proc Eval Procedure: Operation Date: 05/09/25 07:00 Proposed Procedures p Esophagogastroduodenoscopy - Binh Franz MD Operation Date: 05/16/25 15:00 Proposed Procedures p Diagnostic Colonoscopy - Binh Franz MD Date/Time: 05/16/25 13:47 Surgeon: Birdie Marquez MD Pre Op Diagnosis: GI bleed Patient Data Age: 50 Gender: M Height: 1.73 m Weight: 91 kg Last Vital Signs Temp 97 F L 05/16/25 12:56 Pulse 49 L 05/16/25 12:56 Resp 18 05/16/25 12:56 BP 115/75 05/16/25 12:56 Pulse Ox 100 05/16/25 12:56 O2 Del Method Room Air 05/16/25 12:56 O2 Flow Rate 1 05/12/25 08:34 FiO2 24 05/15/25 20:00 Allergies Allergy/AdvReac Type Severity Reaction Status Date / Time No Known Allergies Allergy Verified 05/09/25 10:42 Home Medications ?Medication ?Instructions ?Recorded ?Confirmed ?Type Unable to Obtain Home Medications 05/0905/09/25 History Laboratory Tests 05/15/25 05/15/25 05/16/25 17:23 22:57 04:14 WBC 4.0 L K/mm3 4.5 K/mm3 4.9 K/mm3 (4.5-10.0) (4.5-10.0) (4.5-10.0) RBC 2.73 L M/mm3 2.71 L M/mm3 2.73 L M/mm3 (4.6-6.20) (4.6-6.20) (4.6-6.20) Hgb 8.1 L g/dL 8.0 L g/dL 8.0 L g/dL (14.0-18.0) (14.0-18.0) (14.0-18.0) Hct 24.5 L % 25.2 L % 25.8 L % (42.0-52.0) (42.0-52.0) (42.0-52.0) MCV 89.7 fl 93.0 fl 94.5 fl (80-100) (80-100) (80-100) MCH 29.7 pg 29.5 pg 29.3 pg (26-34) (26-34) (26-34) MCHC 33.1 g/dl 31.7 L g/dl 31.0 L g/dl (32-36) (32-36) (32-36) RDW 16.5 H % 16.4 H % 16.5 H % (11.5-14.5) (11.5-14.5) (11.5-14.5) Plt Count 100 L k/mm3 105 L k/mm3 107 L k/mm3 (150-375) (150-375) (150-375) MPV 9.4 fl 9.2 fl 9.4 fl (7.4-10.4) (7.4-10.4) (7.4-10.4) Immature Gran % (Auto) 0.2 % (0-0.5) Neut % (Auto) 47.1 % (45.5-73.1) Lymph % (Auto) 36.9 % (18.3-44.2) [place] % (Auto) 10.3 H % (2.6-8.5) Eos % (Auto) 4.7 H % (0-4.4) Baso % (Auto) 0.8 % (0.2-1.2) Lymph # (Auto) 1.79 K/mm3 (0.9-3.2) [place] # (Auto) 0.5 K/mm3 (0.1-0.6) Eos # (Auto) 0.2 K/mm3 (0-0.3) Baso # (Auto) 0.0 K/mm3 (0.0-0.1) Abs Immat Gran (auto) 0.01 K/mm3 (0.00-0.031) Absolute Neuts (auto) 2.3 K/mm3 (1.3-6.7) Absolute Nucleated RBC 0.000 K/mm3 (0.0-0.012) Nucleated RBC % 0.0 % (0.0-0.2) % Immature Plt Fraction 2.1 % 1.8 % 2.2 % (0.9-11.2) (0.9-11.2) (0.9-11.2) Sodium 134 L mmol/L (137-145) Potassium 4.2 mmol/L (3.4-5.0) Chloride 107 mmol/L (98-107) Carbon Dioxide 28 mmol/L (22-30) Anion Gap -1 L mmol/L (4-12) BUN 7 L mg/dL (9-20) Creatinine 0.92 mg/dL (0.7-1.3) Estim Creat Clear Calc 92 ml/min Estimated GFR > 60 (59 - ) Glucose 78 mg/dL (65-110) Calcium 7.6 L mg/dL (8.4-10.2) Total Bilirubin 1.3 mg/dL (0.2-1.3) AST 55 U/L (17-59) ALT 13 U/L (6-50) Alkaline Phosphatase 136 H U/L (38-126) Total Protein 6.1 L g/dL (6.3-8.2) Albumin 2.5 L g/dL (3.5-5.1) Triglycerides 116 mg/dL (<150) Patient hx anesthesia problems: none Family hx anesthesia problems: none Results Review: All pre-operative results and documents have been reviewed as part of the pre- operative evaluation. [facility] Past Medical History Medical History Liver encephalopathy Cirrhosis, alcoholic Melena Esophageal varices Acute blood loss anemia Hemorrhagic shock Hematemesis Social History Social History Smoking status: Unknown if ever smoked Alcohol intake: current Drinks per week: 84 Substance use: unknown Substance use type: does not use Spiritual care concerns: No Anes - Eval Final PreProcedure Day of Procedure 05/16/25 13:47 Patient weight: obese Lungs: normal air movement Airway: Mallampati scale class II Neurological: alert and oriented Last oral intake: >/= 8 hours ASA classification: IV Emergent: no Anesthetic plan: proceed Anesthesia type and monitoring: general GIVS and standard monitoring Results Review: All pre-operative results and documents have been reviewed as part of the pre- operative evaluation. Complicated pt, hx reviewed. Hematememsis, cirrhosis w varies, hx of ETOH use/abuse. Now for colonoscopy. Informed Consent: The patient's anesthetic plan and its attendant risks and benefits were discussed with the patient/family/POA. Questions were solicited and answers provided to the satisfaction of the patient/family/POA.
--- NOTE | 2025-05-16 14:58 | S_PTH ---
PATIENT: Nestor Mahmood LOC: [id number] U#:[id number] AGE/SX: 50/M ROOM: 240 RE05/09/[address]: Alejandrina Parra APRN : 1975 BED: 01 DIS: 05/17/2025 SPEC #: [id number] RECD: 05/17/25 07:46 STATUS: LALIT REYonas #: [id number] ZACHARY: 05/16/25 14:[address]: Binh Franz DEPT: [facility] Surgical RECD BY: Rm Gillis ENTERED: 05/17/25 07:46 SP TYPE: Surgical OTHR DR: MD Sandi Ellis MD UNKNOWN,DOCTOR Tissues: A - Colon Polypectomy Procedures: Hematoxylin and Eosin Stain Gross and Microscopic Level 4
--- NOTE | 2025-05-16 15:31 | PCNWS ---
Weekly nutritional screen. Patient is tolerating current diet with adequate intake. Currently NPO for EGD. Intakes 75-100% on previous. No weight loss reported. No nutritional needs at this time.
--- NOTE | 2025-05-16 15:35 | PC.NURSE ---
Returned from GI lab via stretcher. Family at bedside.
[2025-05-16] MEDS: LACTULOSE 20 GM/30 ML UDC BY MOUTH (16:39)
[2025-05-17] VITALS (7 sets, daily range): BP systolic 102–126; BP diastolic 60–80; PULSE 48–61; RESP 18; TEMP 36.6; O2SAT 98–100
[2025-05-17 05:19] LABS: Hematocrit 25.2 % (42.0-52.0); Hemoglobin 7.9 g/dL (14.0-18.0); Immature Granulocyte Percent A 0.4 % (0-0.5); Immature Platelet Fraction Pct 1.8 % (0.9-11.2); Lymphocytes Absolute Auto 1.69 K/mm3 (0.9-3.2); Mean Corpuscular HGB Conc 31.3 g/dl (32-36); Mean Corpuscular Hemoglobin 29.4 pg (26-34); Mean Corpuscular Volume 93.7 fl (80-100); Nucleated Red Blood Cells Absolute Auto 0.000 K/mm3 (0.0-0.012); Nucleated Red Blood Cells Perc 0.0 % (0.0-0.2); Platelet Count Result 111 k/mm3 (150-375); Red Blood Count 2.69 M/mm3 (4.6-6.20); White Blood Count 4.8 K/mm3 (4.5-10.0)
[2025-05-17 05:37] LABS: Alanine Aminotransferase 15 U/L (6-50); Albumin Level 2.6 g/dL (3.5-5.1); Alkaline Phosphatase 150 U/L (38-126); Anion Gap 2 mmol/L (4-12); Aspartate Amino Transferase 64 U/L (17-59); Bilirubin,Total 1.0 mg/dL (0.2-1.3); Blood Urea Nitrogen 13 mg/dL (9-20); Calcium 7.7 mg/dL (8.4-10.2); Carbon Dioxide 26 mmol/L (22-30); Chloride 106 mmol/L (98-107); Estimated CRCL calculation 93 ml/min; Estimated Glomerular Filt Rate > 60; Glucose 87 mg/dL (65-110); Potassium 4.0 mmol/L (3.4-5.0); Sodium 134 mmol/L (137-145); Total Protein 6.0 g/dL (6.3-8.2)
[2025-05-17] MEDS: CALCIUM/VITAMIN D 500 MG/5 MCG (200 I.U.) TABLET PO (08:45)
[2025-05-17] MEDS: FOLIC ACID 1 MG TABLET PO (08:45)
[2025-05-17] MEDS: LACTULOSE 20 GM/30 ML UDC BY MOUTH ×2 (08:45→16:22)
[2025-05-17] MEDS: THIAMINE HCL 100 MG TABLET PO (08:45)
--- NOTE | 2025-05-17 09:50 | P.PNAN_ITS ---
Anes - Prog Note Post-Op Date/Time: 05/17/25 09:50 Cardiovascular status: normal Respiratory status: normal Airway patency: baseline Mental status: baseline Post-Op hydration status: normal Vital Signs: Last Vital Signs Temp 36.6 C 05/17/25 06:00 Pulse 60 05/17/25 08:47 Resp 18 05/17/25 08:47 BP 126/80 05/17/25 06:00 Pulse Ox 98 05/17/25 08:47 O2 Del Method Room Air 05/17/25 08:47 O2 Flow Rate 4 05/16/25 15:10 FiO2 24 05/15/25 20:00 Pain Score (VAS): 1 I/O: Intake & Output 05/16/25 05/17/25 05/17/25 23:59 07:59 15:59 Intake Total 730 500 480 Balance 730 500 480 Laboratory Tests 05/17/25 04:37 05/17/25 04:37 05/17/25 04:37 WBC 4.8 RBC 2.69 L Hgb 7.9 L Hct 25.2 L MCV 93.7 MCH 29.4 MCHC 31.3 L RDW 16.5 H Plt Count 111 L MPV 9.4 Immature Gran % (Auto) 0.4 Neut % (Auto) 47.0 Lymph % (Auto) 35.5 [place] % (Auto) 11.8 H Eos % (Auto) 4.2 Baso % (Auto) 1.1 Lymph # (Auto) 1.69 [place] # (Auto) 0.6 Eos # (Auto) 0.2 Baso # (Auto) 0.1 Abs Immat Gran (auto) 0.02 Absolute Neuts (auto) 2.2 Absolute Nucleated RBC 0.000 Nucleated RBC % 0.0 % Immature Plt Fraction 1.8 Sodium 134 L Potassium 4.0 Chloride 106 Carbon Dioxide 26 Anion Gap 2 L BUN 13 D Creatinine 0.91 Estim Creat Clear Calc 93 Estimated GFR > 60 Glucose 87 Calcium 7.7 L Total Bilirubin 1.0 AST 64 H ALT 15 Alkaline Phosphatase 150 H Total Protein 6.0 L Albumin 2.6 L Microbiology 05/13/25 10:40 Blood Blood Culture - Preliminary 05/13/25 10:37 Blood Blood Culture - Preliminary Post-procedural complaints: none Patient Feedback: Patient satisfied with anesthetic care.
--- NOTE | 2025-05-17 12:55 | P.DS_ITS ---
DS: Admitting Diagnosis Discharge Date 05/17/2025 Admitting Diagnosis Thrombocytopenia GI Bleed Anemia Alcohol use disorder Cirrhosis DS: Discharge Diagnosis Discharge Diagnosis (1) Esophageal varices: Code(s): I85.00 - Esophageal varices without bleeding Status: Acute (2) PRB (rectal bleeding): Code(s): K62.5 - Hemorrhage of anus and rectum Status: Acute (3) Hematemesis: Code(s): K92.0 - Hematemesis Status: Acute (4) GI (gastrointestinal bleed): Qualifiers: GI bleed type/associated pathology: unspecified gastrointestinal hemorrhage type Qualified Code(s): K92.2 - Gastrointestinal hemorrhage, unspecified Code(s): K92.2 - Gastrointestinal hemorrhage, unspecified Status: Acute (5) Acute blood loss anemia: Code(s): D62 - Acute posthemorrhagic anemia Status: Acute (6) Thrombocytopenia: Code(s): D69.6 - Thrombocytopenia, unspecified Status: Acute (7) Cirrhosis: Code(s): K74.60 - Unspecified cirrhosis of liver Status: Acute (8) Alcohol use disorder: Code(s): F10.90 - Alcohol use, unspecified, uncomplicated Status: Acute (9) Elevated troponin: Code(s): R79.89 - Other specified abnormal findings of blood chemistry Status: Acute (10) Acute respiratory failure: Code(s): J96.00 - Acute respiratory failure, unspecified whether with hypoxia or hypercapnia Status: Acute (11) Hypertension: Code(s): I10 - Essential (primary) hypertension Status: Acute (12) Electrolyte abnormality: Code(s): E87.8 - Other disorders of electrolyte and fluid balance, not elsewhere classified Status: Acute (13) Bacteremia: Code(s): R78.81 - Bacteremia Status: Acute DS: Summary Hospital Course Reason for hospitalization: hematemisis Hospital Course: Esophageal varacies -see below PRB (rectal bleeding) patient with new episodes of BRBPR x 3, appears to be large amount per patient he has never had these symptoms before hemoglobin monitored and is now stable s/p colonoscopy per GI without source of bleeding identified per patient bleeding has appeared to have resolved Hematemesis 05/09: patient presented with hematemesis at home and multiple episodes in the ER - GI was called into the ER early this morning to scope the patient -05/09/2025: EGD done in the ER: Grade 3 varices, 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 status post 3 bands. Moderate gastritis in the stomach, portal hypertensive changes, no mucosal bleeding. Old blood noted in the fundus of the stomach. The bulb and the 2nd portion of duodenum was normal with no ulcers or masses. - patient completed octreotide infusion per GI for 72 hours -PPI stopped per GI, no need to restart -carvedilol 6.25 mg BID for secondary prophylaxis of variceal bleeding and hepatoprotection. -patient will need to have a 2nd banding procedure in 4-6 weeks, he was instructed by GI he can come back here to have it done or find a provider in [place] where he lives -patient tolerating regular diet -importance of alcohol abstinence explained to patient -GI information provided on discharge for outpatient follow up. Patient lives in [place] and will try ot find care by home but was educated that he can return here to get the required follow up care. -discharge instructions were given to patient via ceo & co founder and also explained to family member who was fluent in [place]. All questions answered. -new medications were sent to the pharmacy and family will obtain before picking patient up later today to drive back to [place]. GI bleed -see above Acute blood loss anemia -patient received 1 unit of packed RBCs -Hgb has remained stable Thrombocytopenia Thrombocytopenia likely related to cirrhosis and now consumptive - continue to monitor Cirrhosis cirrhosis likely related to alcohol use disorder -MELD score is 17 - GI following, and recommended right upper quadrant ultrasound -ammonia level improved. Continue lactulose but decrease dose to b.i.d. -monitor ammonia level -discussed need for patient to abstain from alcohol after discharge -discussed need for patient to establish with a PCP and solar lab technician upon return to [place] Alcohol use disorder -Patient drinks 8 beers a day for 20 years according to records -no withdrawal symptoms while in the hospital -thiamine and folic acid -discussed with patient and family that patient needs to abstain from alcohol on discharge Elevated troponin troponin elevated likely related to GI bleed - repeat troponins have been trending down - unknown if patient complained of any chest pain Acute respiratory failure Patient extubated on05/10 Now on room air Continue incentive spirometry Essential Hypertension -continue coreg Electrolyte abnormality replace low potassium and calcium Bacteremia His blood culture 1 hour to a growing Gram-positive cocci. Identification is pending. Could be contaminant. Continue vanc and Rocephin until results are back repeat blood cultures ordered discussed with ID pharmacist, since only one bottle is positive appears to be a contaminant stop IV vancomycin s/p IV ceftriaxone and PO bactrim for SBP prevention Time Spent with Patient Time attestation: Total time spent providing and/or coordinating discharge services: 50 Minutes Exam Narrative: General: Alert awake and in no acute distress HEENT:? pupils equal and reactive, sclera is clear, Neck:? supple Respiratory:? clear to auscultation bilaterally, adequate air entry, no wheezing Cardiac:? S1-S2 normal, regular rate and rhythm Abdomen:? soft, nontender, nondistended, hypoactive bowel sounds Extremities:? no edema, palpable pedal pulses Neuro:? Alert and oriented x 3 Skin:? no skin lesions noted Psych:?calm, mood stable DS: Data Data Completed and Pending Pending studies at discharge: Pending at discharge 05/16/25 14:58 Surgical [PTH] Routine Labs on day of discharge: Labs from last 24 hours 05/17/25 04:37 WBC 4.8 RBC 2.69 L Hgb 7.9 L Hct 25.2 L MCV 93.7 MCH 29.4 MCHC 31.3 L RDW 16.5 H Plt Count 111 L MPV 9.4 Immature Gran % (Auto) 0.4 Neut % (Auto) 47.0 Lymph % (Auto) 35.5 Cottle % (Auto) 11.8 H Eos % (Auto) 4.2 Baso % (Auto) 1.1 Lymph # (Auto) 1.69 Cottle # (Auto) 0.6 Eos # (Auto) 0.2 Baso # (Auto) 0.1 Abs Immat Gran (auto) 0.02 Absolute Neuts (auto) 2.2 Absolute Nucleated RBC 0.000 Nucleated RBC % 0.0 % Immature Plt Fraction 1.8 Sodium 134 L Potassium 4.0 Chloride 106 Carbon Dioxide 26 Anion Gap 2 L BUN 13 D Creatinine 0.91 Estim Creat Clear Calc 93 Estimated GFR > 60 Glucose 87 Calcium 7.7 L Total Bilirubin 1.0 AST 64 H ALT 15 Alkaline Phosphatase 150 H Total Protein 6.0 L Albumin 2.6 L Preliminary micro results at discharge 05/13/25 10:40 Blood Culture - Preliminary Blood 05/13/25 10:37 Blood Culture - Preliminary Blood Imaging Radiologist's impression: Ordering Physician: Marcel Miller DO Date of Service: 05/09/25 Procedure(s): CTA chest abdomen pelvis Accession Number(s): [id number] cc: Marcel Miller DO; Birdie Marquez MD; UNKNOWN,DOCTOR~ EXAMINATION: CTA chest abdomen pelvis DATE: 05/09/2025 03:27 INDICATION: Gastrointestinal hemorrhage. TECHNIQUE: Computed tomographic angiography (CTA) of the chest, abdomen, and pelvis was performed without and with 100 mL Omnipaque-350 intravenous contrast. Automated exposure control and iterative reconstruction technique were em ployed. The dose-length product was 3835.19 mGy-cm. Maximum intensity projection 3D-reconstructions of the aorta and other arteries were constructed by the technologist on a separate workstation. COMPARISON: None. FINDINGS: CHEST CTA: The lungs demonstrate mild atelectasis. A calcified right lung nodule is consistent with old granulomatous disease. No pleural effusion. The heart size is normal. No pericardial effusion. There is wall thickening of the esophagus. The aorta is normal. There is no pulmonary embolus. There are bridging endplate osteophytes at multiple levels in the spine, consistent with diffuse idiopathic skeletal hyperostosis (DISH). ABDOMEN AND PELVIS CTA: The liver demonstrates surface nodularity, consistent with cirrhosis. There is a periumbilical portacaval shunt. The gallbladder, pancreas, spleen, adrenal glands, and kidneys are normal. There are bilateral inguinal hernias containing fat. There are no dilated loops of bowel. The appendix is not visualized. There are no pathologically enlarged lymph nodes. There is no free intraperitoneal fluid. There is an umbilical hernia containing fat. There is no significant stenosis of celiac axis, superior mesenteric artery, the renal arteries, or inferior mesenteric artery. There are bilateral inguinal hernias containing fat. There is mild lumbar spondylosis. IMPRESSION: 1. No active hemorrhage. 2. Cirrhosis of the liver. 3. Wall thickening of the esophagus, consistent with edema versus esophagitis. 4. Umbilical hernia and bilateral inguinal hernias containing fat. Reviewed, dictated and finalized at location E. BUILDER Ordering Physician: Sandi Magana MD Date of Service: 05/09/25 Procedure(s): US abdomen limited Accession Number(s): [id number] cc: Birdie Marquez MD; Sandi Magana MD; UNKNOWN,DOCTOR~ EXAMINATION: US abdomen limited DATE: 05/09/2025 16:34 INDICATION: Cirrhosis of the liver TECHNIQUE: Multiple grayscale and Doppler ultrasound images of the abdomen were obtained. COMPARISON: CT abdomen and pelvis 05/09/2025 FINDINGS: No evidence of gallstones. No edema gallbladder wall. Irregular, nodular surface of liver with heterogeneous echotexture consistent with cirrhosis of the liver. Moderately dilated portal vein 1.7 cm in diameter at the hilum of the liver is patent. Spleen and left abdomen were not examined. No free fluid. IMPRESSION: 1. No evidence of gallstones. Bile ducts are normal in size. 2. Hepatomegaly with nodular liver and heterogeneous texture with cirrhosis. 3. Mildly dilated portal vein consistent with portal venous hypertension. There is no ascites. Reviewed, dictated and finalized at location T. BUILDER Discharge Plan Discharge Attending physician on discharge: Teofilo Amor Consulting providers: Sandi Magana; Binh Franz; Ward Caro; Don Kelly Francisco M.; Cy Goldberg; Mateusz Howard; Rubens Coelho; Serafin Vizcarra V.; Apolinar Summers; Renae Sawyer; Rick Leslie; Marquis Martínez Discharging Clinician: Alejandrina Parra Patient Disposition: Home Activity: as tolerated Diet: heart healthy Discharge Instructions: You need to establish with a primary care provider and solar lab technician as soon as possible when you return home to [place]. Please inform the solar lab technician's office that you were hospitalized and that you are recommended to have a repeat esophageal varices banding procedure done again in 4-6 weeks. Please have either your primary care provider or solar lab technician refill your prescriptions you were discharged with. These are medications you need to continue indefinitely. Please abstain from ANY alcohol consumption. Please reuqest any future providers to obtain your medical records from this hospital admission. Please go to the nearest ER if you notice any signs of bleeding including vomiting blood or coffee ground emesis, or large amounts of blood per rectum. Please present to the nearest ER if you develop confusion, unexplained sleepiness, chest pain, dyspnea, or fever greater than 100.4F. Discharge Instructions: Bleeding Esophageal Varices (Post-Banding) & Liver Cirrhosis (Alcohol-Related) Diagnosis: * Bleeding esophageal varices (treated with endoscopic band ligation) * Liver cirrhosis due to alcohol use Debe programar rolando frandy con un m?dico de atenci?n primaria y un gastroenter?logo lo antes posible al regresar a bhakta casa en [place]. Informe a la consulta del gastroenter?logo que estuvo hospitalizado y que se recomienda que le realicen un nuevo procedimiento de ligadura de v?rices esof?gicas en 4 a 6 semanas. Pida a bhakta m?dico de atenci?n primaria o al gastroenter?logo que le renueven las recetas de los medicamentos con los que fue dado de ely. Estos medicamentos debe tomarlos de forma indefinida. Por favor, abst?ngase de consumir cualquier tipo de alcohol. Solicite a cualquier m?dico que lo atienda en el futuro que obtenga bhakta historial m?dico de esta hospitalizaci?n. Acuda a la colette de emergencias m?s cercana si nota cualquier signo de sangrado, incluyendo v?venancio con kulwinder o v?venancio con aspecto de posos de caf?, o grandes cantidades de kulwinder por el recto. Acuda a la colette de emergencias m?s cercana si presenta confusi?n, somnolencia inexplicable, dolor en el pecho, dificultad para respirar o fiebre superior a 38 ?C (100.4 ?F). Instrucciones de ely: Sangrado de v?rices esof?gicas (posterior a la ligadura) y cirrosis hep?omid (relacionada con el alcohol) Diagn?stico: * Sangrado de v?rices esof?gicas (tratado con ligadura endosc?pica con bandas) * Cirrosis hep?omid debido al consumo de alcohol 1.?Medications * Take all prescribed medications as directed.?These may include: * Beta-blockers?(e.g., propranolol, nadolol) to reduce risk of recurrent bleeding. * Lactulose or rifaximin?if you have or are at risk for hepatic encephalopathy. * Proton pump inhibitors?(e.g., pantoprazole) if prescribed. * Diuretics?(e.g., furosemide, spironolactone) if you have fluid retention. * Avoid NSAIDs?(ibuprofen, naproxen) and aspirin, as these can increase bleeding risk. * Do not stop or change medications without consulting your provider. 2.?Diet and Activity * No alcohol.?Complete abstinence from alcohol is essential to prevent further liver damage. * Low-sodium diet?if you have fluid retention or ascites. * Soft diet?for 1?2 weeks after banding to reduce risk of trauma to the esophagus. Avoid hard, crunchy, or sharp foods (e.g., chips, crackers, raw vegetables). * Small, frequent meals?may be easier to tolerate. * Avoid heavy lifting or straining?to reduce risk of recurrent bleeding. 3.?Signs and Symptoms to Watch For * Seek immediate medical attention if you experience: * Vomiting blood (bright red or coffee-ground appearance) * Black, tarry stools * Severe abdominal pain * Confusion, drowsiness, or difficulty waking up * Yellowing of the skin or eyes (jaundice) that worsens * Swelling of the abdomen or legs that increases rapidly * Fever or signs of infection 4.?Follow-Up Care * Follow up with your solar lab technician or j2ee android developer?as scheduled, please attempt to establish care right away on return to [place]. * Repeat endoscopy?may be needed in 4-6 weeks to check for healing and possible need for additional banding. * Regular blood tests?to monitor liver function, blood counts, and electrolytes. 5.?Lifestyle and Support * Enroll in an alcohol cessation program?or support group if not already done. * Vaccinations:?Stay up to date on hepatitis A, hepatitis B, and pneumococcal vaccines. * Avoid dtfz-soi-bojyxyc herbal supplements?unless approved by your provider, as some can worsen liver disease. 6.?Other Instructions * Carry a medical alert card?indicating you have liver cirrhosis and esophageal varices. * Inform all healthcare providers?of your liver condition before any procedures or new medications. 1. Medicamentos * [facility] todos los medicamentos recetados seg?n las indicaciones. Estos pueden incluir: * Betabloqueantes (p. ej., propranolol, nadolol) para reducir el riesgo de hemorragia recurrente. * Lactulosa o rifaximina si tiene o corre riesgo de encefalopat?a hep?omid. * Inhibidores de la bomba de protones (p. ej., pantoprazol) si se los r ecetan. * Diur?ticos (p. ej., furosemida, espironolactona) si tiene retenci?n de l?quidos. * Evite los NATALIYA (ibuprofeno, naproxeno) y la aspirina, ya que pueden aumentar el riesgo de hemorragia. * No suspenda ni cambie los medicamentos sin consultar con bhakta m?dico. 2. Dieta y actividad * No consuma alcohol. La abstinencia total de alcohol es fundamental para prevenir un mayor da?o hep?lizette. * Siga rolando dieta baja en sodio si tiene retenci?n de l?quidos o ascitis. * Siga rolnado dieta blanda josué 1 a 2 semanas despu?s de la ligadura para reducir el riesgo de traumatismo en el es?fago. Evite los alimentos duros, crujientes o puntiagudos (p. ej., patatas fritas, galletas saladas, verduras crudas). * Las comidas joe?as y frecuentes pueden ser m?s f?ciles de tolerar. * Evite levantar objetos pesados ??o hacer esfuerzos para reducir el riesgo de hemorragia recurrente. 3. Signos y s?ntomas a tener en cuenta * Busque atenci?n m?dica de inmediato si presenta: * V?venancio con kulwinder (de color velazco brillante o con aspecto de posos de caf?) * Heces negras y alquitranadas * Dolor abdominal intenso * Confusi?n, somnolencia o dificultad para despertarse * Coloraci?n amarillenta de la piel o los ojos (ictericia) que empeora * Hinchaz?n del abdomen o las piernas que aumenta r?pidamente * Fiebre o signos de infecci?n 4. Atenci?n de seguimiento * Acuda a la frandy de seguimiento con bhakta gastroenter?logo o hepat?logo seg?n lo programado; intente establecer contacto con un especialista lo antes posible al regresar a [place]. * Es posible que se necesite rolando endoscopia de seguimiento en 4 a 6 semanas para verificar la cicatrizaci?n y la posible necesidad de ligadura adicional. * Se realizar?n an?lisis de kulwinder rock?dicos para controlar la funci?n hep?omid, el recuento sangu?lenin y los electrolitos. 5. Estilo de kenrick y apoyo * Inscr?base en un programa o lux de apoyo para dejar el alcohol si a?n no lo andrews hecho. * Vacunaci?n: Mant?ngase al d?a con las vacunas contra la hepatitis A, la hepatitis B y el neumococo. * Evite los suplementos herbales de venta danielle a menos que bhakta m?dico los apruebe, ya que algunos pueden empeorar la enfermedad hep?omid. 6. Otras instrucciones ? Lleve consigo rolando tarjeta de alerta m?dica que indique que padece cirrosis hep?omid y varices esof?gicas. ? Informe a todos los profesionales sanitarios sobre bhakta afecci?n hep?omid antes de someterse a cualquier procedimiento o de elli nuevos medicamentos. If you have any questions or concerns, contact your healthcare provider or return to the emergency department. Si tiene alguna pregunta o inquietud, comun?quese con bhakta m?dico o regrese al servicio de urgencias. Patient Instructions: Antibiotic Form Patient Language: Georgian Stand Alone Forms: General Discharge Information Follow-up/Referrals: Binh Franz MD [Physician, Gastroenterology] Referral Note: Please call for an appointment to schedule the repeat banding procedure that is needed in 4-6 weeks. Discharge Medications: New carvedilol [Coreg] 6.25 mg Tablet 6.25 mg PO Q12HR Qty: 60 0RF thiamine HCl (vitamin B1) [Vitamin B-1] 100 mg Tablet 100 mg PO QAM Qty: 30 0RF folic acid 1 mg Tablet 1 mg PO DAILY Qty: 30 0RF lactulose 10 gram/15 mL Solution 20 g BYMOUTH BID Qty: 180 0RF calcium carbonate-vitamin D3 [Oyster Shell Calcium-Vit D3] 500 mg-5 mcg (200 unit) Tablet 1 tablet PO DAILY@0800 Qty: 30 0RF tramadol 25 mg tablet 25 mg PO Q6H PRN (Reason: Pain Rated 4-6) Qty: 20 0RF Date of admission: 05/09/25 08:19 Primary Care Provider: UNKNOWN,DOCTOR Admitting Provider: Birdie Marquez Attending physician on admission: Alejandrina Parra Condition: Stable Quality VTE Prophylaxis VTE prophylaxis: mechanical ordered
== END 2025-05-17 17:50 | disposition home or self-care (01) | DRG 280 ==
LOC: ANHED 06:14 → ANHIMU 06:18 → ANHICU 07:38 → ANH2MED 05-12 18:48
PROVIDERS: Internal Medicine; Internal Medicine Gastroenterology; Admitting Provider General Practice; Emergency Provider Student in an Organized Health Care Education/Training Program; Visit Provider Nurse Practitioner Adult Health
PROC: 0DJ08ZZ Inspection of Upper Intestinal Tract, Via Natural or Artificial Opening Endoscopic (ICD-10-PCS; principal; 2025-05-09 07:00)
PROC: 0DJD8ZZ Inspection of Lower Intestinal Tract, Via Natural or Artificial Opening Endoscopic (ICD-10-PCS; CPT 45378; principal; 2025-05-16 15:00)
DX: K70.30 Alcoholic cirrhosis of liver without ascites (principal); I85.11 Secondary esophageal varices with bleeding; R57.8 Other shock; D62 Acute posthemorrhagic anemia; D69.6 Thrombocytopenia, unspecified; K76.6 Portal hypertension; K76.82 Hepatic encephalopathy; K29.70 Gastritis, unspecified, without bleeding; K62.5 Hemorrhage of anus and rectum; K57.30 Diverticulosis of large intestine without perforation or abscess without bleeding; K63.5 Polyp of colon; E87.8 Other disorders of electrolyte and fluid balance, not elsewhere classified; R79.89 Other specified abnormal findings of blood chemistry; F10.90 Alcohol use, unspecified, uncomplicated
CPT/HCPCS: 31500; 36415; 36430; 36600; 70450; 71045; 71275; 74174; 76705; 80053; 80074; 80202; 80307; 81003; 82077; 82140; 82375; 82803; 82805; 82948; 83050; 83605; 83690; 83735; 84100; 84439; 84443; 84478; 84481; 84484; 85014; 85018; 85025; 85027; 85055; 85610; 85730; 86140; 86703; 86850; 86900; 86901; 86920; 87040; 87186; 87641; 88305; 93005; 94002; 94003; 94640; 96361; 96365; 96367; 96375; 96376; 97116; 97161; 97165; 97530; 99291; A9270; G0378; G0432; J0613; J0696; J2003; J2250; J2354; J2371; J2405; J2470; J2704; J2765; J3010; J3373; J3411; J3430; J7030; J7040; J7050; J7060; J7120; P9016; Q9967